=== PATIENT | male | born 1975 | race African-American/Black ===

== ENCOUNTER 2019-09-01 15:56 | Emergency (ER) | payer MEDICAID ==
[~2019-09-01] VITALS: Ht 180.3 cm; Wt 100.0 kg
[2019-09-01 15:59] VITALS: BP 122/85
== END 2019-09-01 18:17 | disposition home or self-care (01) ==
LOC: EDBD 15:56 → ER 15:56
DX: F10.129 Alcohol abuse with intoxication, unspecified (principal); Y90.9 Presence of alcohol in blood, level not specified
CPT/HCPCS: 99283

== ENCOUNTER 2019-09-06 00:13 | Emergency (ER) | payer MEDICAID ==
[~2019-09-06] VITALS: Ht 188 cm; Wt 104.0 kg
[2019-09-06 00:26] VITALS: BP 130/72
== END 2019-09-06 09:02 | disposition left against medical advice (07) ==
LOC: ER 00:22
DX: Z53.21 Procedure and treatment not carried out due to patient leaving prior to being seen by health care provider (principal)

== ENCOUNTER 2020-05-12 23:46 | Inpatient (IN) | payer MEDICAID ==
[~2020-05-12] VITALS: Ht 177.8 cm; Wt 113.9 kg
[2020-05-13] MEDS ORDERED: IBUPROFEN 600MG TABLET PO ONE (00:45)
[2020-05-13 02:19] LABS: BASOPHILS % 0.9 % (0.0-2.0); EOSINOPHILS % 2.4 % (0.0-5.0); HEMATOCRIT. 26.4 % (42.0-52.0); HEMOGLOBIN. 8.7 g/dL (14.0-18.0); LYMPHOCYTES % 38.9 % (20.0-50.0); MEAN CORPUSCULAR HEMOGLOBIN 28.1 pg (28.0-32.0); MEAN CORPUSCULAR VOLUME 85.1 fL (80.0-94.0); MEAN PLATELET VOLUME 8.4 fl (7.4-10.4); MONOCYTES % 13.7 % (2.0-8.0); NEUTROPHILS % 44.1 % (40.0-76.0); PLATELET 194 x1000/uL (130-400); RED CELL DISTRIBUTION WIDTH 17.5 % (11.6-14.6)
[2020-05-13 02:23] LABS: CHLORIDE 106 mEq/L (98-107)
[2020-05-13 02:27] LABS: ETHANOL BLOOD 196 mg/dL
[2020-05-13] MEDS ORDERED: PANTOPRAZOLE SODIUM 40 MG/VIAL IV ONE (02:45)
[2020-05-13] MEDS ORDERED: SODIUM CHLORIDE 0.9% 1,000 ML IV ONE (02:45)
[2020-05-13 03:52] LABS: HEMATOCRIT 26.5 % (42.0-52.0); HEMOGLOBIN 8.6 g/dL (14.0-18.0)
[2020-05-13 06:32] VITALS: BP 141/76
[2020-05-13 08:00] VITALS: BP 122/67
[2020-05-13] MEDS ORDERED: FOLIC ACID 1 MG, THIAMINE HCL 100 MG, MVI, ADULT NO.1 10 ML in DEXTROSE 5% WATER 1,000 ML IV SCH ×4 (10:00)
[2020-05-13] MEDS ORDERED: FOLIC ACID 1 MG, THIAMINE HCL 100 MG, MVI, ADULT NO.1 10 ML in DEXTROSE 5% WATER 1,000 ML IV ONE ×4 (10:00)
[2020-05-13] MEDS: PANTOPRAZOLE 80 MG in SODIUM CHLORIDE 0.9% 100 ML IV SCH ×2 (10:21→21:19)
[2020-05-13] MEDS: FUROSEMIDE 40MG/4ML VIAL IVP SCH ×2 (10:21→18:19)
[2020-05-13 11:06] VITALS: BP 122/67
[2020-05-13 12:00] VITALS: BP 116/68
[2020-05-13 12:39] LABS: CLARITY URINE CLEAR (CLEAR); COLOR URINE YELLOW (YELLOW); KETONES URINE NEGATIVE (NEGATIVE); LEUKOCYTE ESTERASE URINE NEGATIVE (NEGATIVE); NITRITE URINE NEGATIVE (NEGATIVE); OCCULT BLOOD URINE NEGATIVE (NEGATIVE); PROTEIN URINE NEGATIVE (NEGATIVE)
[2020-05-13 12:57] LABS: *AMPHETAMINES SCREEN URINE NEGATIVE (NEGATIVE); *BARBITURATES SCREEN URINE NEGATIVE (NEGATIVE); *BENZODIAZEPINES SCREEN URINE NEGATIVE (NEGATIVE); CANNABINOID URINE SCREEN NEGATIVE (NEGATIVE); METHADONE URINE SCREEN NEGATIVE (NEGATIVE)
[2020-05-13 12:59] LABS: *COCAINE SCREEN URINE NEGATIVE (NEGATIVE); OPIATES URINE SCREEN NEGATIVE (NEGATIVE)
[2020-05-13 13:03] LABS: PHENCYCLIDINE URINE SCREEN NEGATIVE (NEGATIVE)
[2020-05-13] MEDS: LORAZEPAM 2MG/ML CPJ IV PRN (14:07)
[2020-05-13] MEDS: CHLORDIAZEPOXIDE 25MG CAPSULE PO SCH ×2 (14:07→22:11)
[2020-05-13 16:00] VITALS: BP 147/77
[2020-05-13 16:39] LABS: TOTAL IRON BINDING CAPACITY 459 ug/dL (250-450)
[2020-05-13 20:47] VITALS: BP 160/79
[2020-05-14] VITALS: BP 156/84
[2020-05-14] MEDS: HYDROCODONE/ACETAMINOPHEN 5/325MG TABLET PO PRN (00:18)
[2020-05-14 04:00] VITALS: BP 149/80
[2020-05-14] MEDS: CHLORDIAZEPOXIDE 25MG CAPSULE PO SCH ×3 (05:31→22:12)
[2020-05-14] MEDS: PANTOPRAZOLE 80 MG in SODIUM CHLORIDE 0.9% 100 ML IV SCH ×2 (05:31→16:44)
[2020-05-14] MEDS: FUROSEMIDE 40MG/4ML VIAL IVP SCH ×2 (06:22→16:43)
[2020-05-14 06:32] LABS: HEMATOCRIT. 26.3 % (42.0-52.0); HEMOGLOBIN. 8.8 g/dL (14.0-18.0); MEAN CORPUSCULAR VOLUME 83.7 fL (80.0-94.0); MEAN PLATELET VOLUME 8.6 fl (7.4-10.4); PLATELET 150 x1000/uL (130-400); RED BLOOD CELL COUNT 3.15 mill/uL (4.7-6.1)
[2020-05-14 06:56] LABS: CHLORIDE 94 mEq/L (98-107)
[2020-05-14 08:00] VITALS: BP 119/80
[2020-05-14 10:08] LABS: PLATELET ESTIMATE NORMAL
[2020-05-14] MEDS: ACETAMINOPHEN 325MG TABLET PO PRN ×2 (10:20→20:32)
[2020-05-14] MEDS: LEVOFLOXACIN 500MG TABLET PO SCH (10:20)
[2020-05-14 11:30] VITALS: BP 98/56
[2020-05-14] MEDS ORDERED: POTASSIUM CHLORIDE 20MEQ TABLET SR PO SCH (13:30)
[2020-05-14 16:00] VITALS: BP 143/81
[2020-05-14] MEDS: BENZONATATE 100MG CAPSULE PO PRN (16:43)
[2020-05-14 20:00] VITALS: BP 112/52
[2020-05-15] VITALS: BP 144/79
[2020-05-15] MEDS: PANTOPRAZOLE 80 MG in SODIUM CHLORIDE 0.9% 100 ML IV SCH ×2 (03:50→12:37)
[2020-05-15 04:00] VITALS: BP 105/53
[2020-05-15] MEDS: CHLORDIAZEPOXIDE 25MG CAPSULE PO SCH ×3 (05:18→21:07)
[2020-05-15] MEDS: ACETAMINOPHEN 325MG TABLET PO PRN ×2 (05:19→11:38)
[2020-05-15 06:21] LABS: CHLORIDE 94 mEq/L (98-107)
[2020-05-15 06:28] LABS: HEMATOCRIT. 26.4 % (42.0-52.0); MEAN CORPUSCULAR VOLUME 85.4 fL (80.0-94.0); MEAN PLATELET VOLUME 8.8 fl (7.4-10.4); PLATELET 108 x1000/uL (130-400); RED BLOOD CELL COUNT 3.09 mill/uL (4.7-6.1); RED CELL DISTRIBUTION WIDTH 17.1 % (11.6-14.6)
[2020-05-15] MEDS: FUROSEMIDE 40MG/4ML VIAL IVP SCH ×2 (06:34→16:39)
[2020-05-15 08:00] VITALS: BP 111/57
[2020-05-15 10:43] LABS: PLATELET ESTIMATE DECREASED
[2020-05-15] MEDS: BENZONATATE 100MG CAPSULE PO PRN (11:26)
[2020-05-15] MEDS: LEVOFLOXACIN 500MG TABLET PO SCH (11:26)
[2020-05-15] MEDS: HYDROCODONE/ACETAMINOPHEN 5/325MG TABLET PO PRN (11:38)
[2020-05-15 12:00] VITALS: BP 120/65
[2020-05-15] MEDS ORDERED: POTASSIUM CHLORIDE 20MEQ/PACKET PO NR (13:00)
[2020-05-15] MEDS: VANCOMYCIN 1250MG in DEXTROSE 5% WATER 250ML IV SCH ×3 (14:00→21:05)
[2020-05-15] MEDS: THIAMINE HCL 100MG TABLET PO SCH (15:30)
[2020-05-15 16:00] VITALS: BP 107/63
[2020-05-15 20:00] VITALS: BP 110/64
[2020-05-16] VITALS: BP 105/69
[2020-05-16 04:00] VITALS: BP 108/60
[2020-05-16] MEDS: VANCOMYCIN 1250MG in DEXTROSE 5% WATER 250ML IV SCH ×3 (05:39→21:38)
[2020-05-16] MEDS: CHLORDIAZEPOXIDE 25MG CAPSULE PO SCH ×3 (05:55→21:38)
[2020-05-16] MEDS: HYDROCODONE/ACETAMINOPHEN 5/325MG TABLET PO PRN ×3 (05:56→21:39)
[2020-05-16] MEDS: OMEPRAZOLE 20MG CAPSULE EXTENDED RELEASE PO SCH (06:09)
[2020-05-16] MEDS: ACETAMINOPHEN 325MG TABLET PO PRN (06:15)
[2020-05-16] MEDS: FUROSEMIDE 40MG/4ML VIAL IVP SCH (06:17)
[2020-05-16 07:15] LABS: BASOPHILS % 0.8 % (0.0-2.0); EOSINOPHILS % 0.6 % (0.0-5.0); HEMATOCRIT. 27.6 % (42.0-52.0); HEMOGLOBIN. 9.2 g/dL (14.0-18.0); LYMPHOCYTES % 4.7 % (20.0-50.0); MEAN CORPUSCULAR HEMOGLOBIN 28.8 pg (28.0-32.0); MEAN PLATELET VOLUME 8.8 fl (7.4-10.4); MONOCYTES % 10.7 % (2.0-8.0); NEUTROPHILS % 83.2 % (40.0-76.0); PLATELET 106 x1000/uL (130-400); RED BLOOD CELL COUNT 3.21 mill/uL (4.7-6.1); RED CELL DISTRIBUTION WIDTH 17.6 % (11.6-14.6)
[2020-05-16 07:17] LABS: CHLORIDE 88 mEq/L (98-107)
[2020-05-16 08:00] VITALS: BP 124/68
[2020-05-16] MEDS: THIAMINE HCL 100MG TABLET PO SCH (09:35)
[2020-05-16] MEDS ORDERED: IOHEXOL-300 100 ML BOTTLE ONE (10:59)
[2020-05-16 12:00] VITALS: BP 112/64
[2020-05-16] MEDS ORDERED: POTASSIUM CHLORIDE 20MEQ/PACKET PO SCH (12:00)
[2020-05-16] MEDS: SODIUM CHLORIDE 0.9% 1,000 ML IV SCH (12:53)
[2020-05-16 16:00] VITALS: BP 102/71
[2020-05-16 20:00] VITALS: BP 136/97
[2020-05-16] MEDS: IPRATROPIUM/ALBUTEROL 0.5-3(2.5)MG/3ML NEB HHN SCH (20:46)
[2020-05-17] VITALS (52 sets, daily range): BP systolic 98–190; BP diastolic 57–126
[2020-05-17] MEDS: IPRATROPIUM/ALBUTEROL 0.5-3(2.5)MG/3ML NEB HHN SCH ×4 (02:05→20:05)
[2020-05-17] MEDS: LORAZEPAM 2MG/ML CPJ IV PRN (02:36)
[2020-05-17] MEDS: VANCOMYCIN 1250MG in DEXTROSE 5% WATER 250ML IV SCH (05:03)
[2020-05-17] MEDS: CHLORDIAZEPOXIDE 25MG CAPSULE PO SCH ×3 (05:13→21:43)
[2020-05-17] MEDS: OMEPRAZOLE 20MG CAPSULE EXTENDED RELEASE PO SCH (06:21)
[2020-05-17] MEDS ORDERED: ETOMIDATE 2MG/ML 10ML VIAL IV ONE (09:00)
[2020-05-17] MEDS ORDERED: VECURONIUM BROMIDE 10 MG/VIAL IV ONE (09:00)
[2020-05-17 09:47] LABS: HEMATOCRIT 27.9 % (42.0-52.0); HEMOGLOBIN 9.5 g/dL (14.0-18.0); MEAN CORPUSCULAR HEMOGLOBIN 28.3 pg (28.0-32.0); MEAN CORPUSCULAR VOLUME 83.4 fL (80.0-94.0); PLATELET 116 x1000/uL (130-400); RED BLOOD CELL COUNT 3.34 mill/uL (4.7-6.1); RED CELL DISTRIBUTION WIDTH 17.4 % (11.6-14.6)
[2020-05-17 09:55] LABS: CHLORIDE 91 mEq/L (98-107)
[2020-05-17 10:03] LABS: BG BASE EXCESS 3.1 mmol/L (-2.0-2.0); BG CARBOXYHEMOGLOBIN 0.3 % (0.5-1.5); BG DEOXYHEMOGLOBIN 0.1 % (0.0-5.0); BG FRACTION INSPIRED OXYGEN 99.8; BG HCO3 ACT 26.7 mmol/L (22.0-26.0); BG OXYGEN SATURATION 99.9 % (92.0-98.5); BG OXYHEMOGLOBIN 99.6 % (94.0-97.0); BG PCO2 36.9 mmHg (35.0-45.0); BG PH 7.477 (7.350-7.450); BG PO2 367.7 mmHg (75.0-100.0); BG SAMPLE SITE RIGHT RADIAL; BG TOTAL HEMOGLOBIN 10.2 g/dL (12.0-18.0); BG VENT MODE MASK - NRB
[2020-05-17 10:04] LABS: INR 1.4; PROTHROMBIN TIME 14.1 sec (9.6-11.0)
[2020-05-17 10:14] LABS: VANCOMYCIN TROUGH 16.4 ug/mL (5.0-10.0)
[2020-05-17] MEDS ORDERED: LEVETIRACETAM 500 MG in SODIUM CHLORIDE 0.9% 100 ML IV SCH (10:30)
[2020-05-17] MEDS ORDERED: PHENYLEPHRINE 100 MG in DEXT 5% WATER 240 ML IV PRN (10:30)
[2020-05-17] MEDS ORDERED: POTASSIUM CHLORIDE 20MEQ TABLET SR PO NR (10:30)
[2020-05-17] MEDS: ACETAMINOPHEN 325MG TABLET PO PRN (10:39)
[2020-05-17] MEDS: SODIUM CHLORIDE 0.9% 1,000 ML IV SCH (10:54)
[2020-05-17] MEDS: PROPOFOL 10MG/ML 100ML 100 ML IV PRN ×3 (11:35→22:42)
[2020-05-17] MEDS: THIAMINE HCL 100MG TABLET PO SCH (12:59)
[2020-05-17] MEDS: LEVETIRACETAM 500MG PREMIX 100 ML IV SCH ×2 (12:59→21:43)
[2020-05-17] MEDS ORDERED: CEFEPIME 1,000 MG in DEXTROSE 5% WATER 50 ML IV SCH (13:00)
[2020-05-17 13:05] LABS: BG BASE EXCESS 2.1 mmol/L (-2.0-2.0); BG CARBOXYHEMOGLOBIN 0.3 % (0.5-1.5); BG DEOXYHEMOGLOBIN 0.5 % (0.0-5.0); BG FRACTION INSPIRED OXYGEN 60; BG HCO3 ACT 26.6 mmol/L (22.0-26.0); BG METHEMOGLOBIN 0.1 % (0.0-1.5); BG OXYGEN SATURATION 99.5 % (92.0-98.5); BG OXYHEMOGLOBIN 99.1 % (94.0-97.0); BG PO2 209.7 mmHg (75.0-100.0); BG SAMPLE SITE RIGHT RADIAL; BG TOTAL HEMOGLOBIN 10.6 g/dL (12.0-18.0); BG VENT MODE VENT - AC
[2020-05-17] MEDS ORDERED: AMPICILLIN 1,000 MG in SODIUM CHLORIDE 0.9% 50 ML IV SCH (13:15)
[2020-05-17] MEDS ORDERED: METRONIDAZOLE 500 MG PREMIX 100 ML IV SCH (14:00)
[2020-05-17] MEDS: VANCOMYCIN 1,750 MG in DEXT 5% WATER 250 ML IV SCH ×2 (14:08→21:43)
[2020-05-17] MEDS: CEFTRIAXONE 2 G in DEXTROSE 5% WATER 50 ML IV SCH ×2 (16:15→23:54)
[2020-05-17 16:44] LABS: INR 1.4; PROTHROMBIN TIME 14.3 sec (9.6-11.0)
[2020-05-17] MEDS ORDERED: LIDOCAINE HCL 1% 20ML VIAL (Pyxis) INJ INFIL NR (17:45)
[2020-05-17 18:41] LABS: GLUCOSE CSF 48 mg/dL (41-75)
[2020-05-17 22:19] LABS: T4 FREE 1.25 ng/dL (0.76-1.46)
[2020-05-17 22:44] LABS: FOLIC ACID (FOLATE) SERUM 14.7 ng/mL (>5.38)
[2020-05-18] VITALS (92 sets, daily range): BP systolic 98–137; BP diastolic 55–92
[2020-05-18 00:35] LABS: HEPATITIS A AB IGM NEGATIVE (NEGATIVE)
[2020-05-18] MEDS: IPRATROPIUM/ALBUTEROL 0.5-3(2.5)MG/3ML NEB HHN SCH ×4 (01:59→20:24)
[2020-05-18] MEDS: SODIUM CHLORIDE 0.9% 1,000 ML IV SCH ×2 (03:14→23:33)
[2020-05-18] MEDS: PROPOFOL 10MG/ML 100ML 100 ML IV PRN ×5 (04:28→23:40)
[2020-05-18 05:41] LABS: CHLORIDE 92 mEq/L (98-107)
[2020-05-18] MEDS: OMEPRAZOLE 20MG CAPSULE EXTENDED RELEASE PO SCH (06:06)
[2020-05-18] MEDS: CHLORDIAZEPOXIDE 25MG CAPSULE PO SCH ×2 (06:06→14:49)
[2020-05-18] MEDS: VANCOMYCIN 1,750 MG in DEXT 5% WATER 250 ML IV SCH ×3 (06:06→23:30)
[2020-05-18 06:33] LABS: HEMATOCRIT. 26.1 % (42.0-52.0); HEMOGLOBIN. 8.7 g/dL (14.0-18.0); MEAN CORPUSCULAR HEMOGLOBIN 28.4 pg (28.0-32.0); MEAN CORPUSCULAR VOLUME 85.4 fL (80.0-94.0); MEAN PLATELET VOLUME 9.7 fl (7.4-10.4); PLATELET 104 x1000/uL (130-400); RED BLOOD CELL COUNT 3.06 mill/uL (4.7-6.1); RED CELL DISTRIBUTION WIDTH 17.7 % (11.6-14.6)
[2020-05-18 08:11] LABS: PLATELET ESTIMATE SLIGHTLY DECREASED
[2020-05-18] MEDS: THIAMINE HCL 100MG TABLET PO SCH (08:23)
[2020-05-18] MEDS: LEVETIRACETAM 500MG PREMIX 100 ML IV SCH ×2 (08:23→23:31)
[2020-05-18] MEDS: CEFTRIAXONE 2 G in DEXTROSE 5% WATER 50 ML IV SCH ×2 (08:23→23:31)
[2020-05-18] MEDS: MULTIVITAMINS,THER W-MINERALS TABLET PO SCH (08:23)
[2020-05-18] MEDS: FOLIC ACID 1MG TABLET PO SCH (08:23)
[2020-05-18] MEDS: ACETAMINOPHEN 325MG TABLET PO PRN ×2 (08:24→15:38)
[2020-05-18 10:10] LABS: BG BASE EXCESS 3.3 mmol/L (-2.0-2.0); BG CARBOXYHEMOGLOBIN 0.3 % (0.5-1.5); BG DEOXYHEMOGLOBIN 1.4 % (0.0-5.0); BG FRACTION INSPIRED OXYGEN 40; BG HCO3 ACT 28.3 mmol/L (22.0-26.0); BG METHEMOGLOBIN 0.3 % (0.0-1.5); BG OXYGEN SATURATION 98.6 % (92.0-98.5); BG PCO2 44.9 mmHg (35.0-45.0); BG PH 7.417 (7.350-7.450); BG PO2 132.8 mmHg (75.0-100.0); BG SAMPLE SITE RIGHT RADIAL; BG TOTAL RESPIRATORY RATE 25 b/min; BG VENT MODE VENT - AC
[2020-05-19] VITALS (59 sets, daily range): BP systolic 104–137; BP diastolic 58–81
[2020-05-19] MEDS: IPRATROPIUM/ALBUTEROL 0.5-3(2.5)MG/3ML NEB HHN SCH ×4 (01:34→20:46)
[2020-05-19 05:27] LABS: HEMATOCRIT. 25.5 % (42.0-52.0); HEMOGLOBIN. 8.4 g/dL (14.0-18.0); MEAN CORPUSCULAR HEMOGLOBIN 28.2 pg (28.0-32.0); MEAN CORPUSCULAR VOLUME 85.1 fL (80.0-94.0); MEAN PLATELET VOLUME 9.9 fl (7.4-10.4); PLATELET 115 x1000/uL (130-400); RED BLOOD CELL COUNT 2.99 mill/uL (4.7-6.1); RED CELL DISTRIBUTION WIDTH 17.7 % (11.6-14.6)
[2020-05-19 05:32] LABS: CHLORIDE 93 mEq/L (98-107)
[2020-05-19 05:41] LABS: VANCOMYCIN TROUGH 28.4 ug/mL (5.0-10.0)
[2020-05-19] MEDS: OMEPRAZOLE 20MG CAPSULE EXTENDED RELEASE PO SCH (05:48)
[2020-05-19] MEDS: PROPOFOL 10MG/ML 100ML 100 ML IV PRN ×3 (05:53→20:50)
[2020-05-19] MEDS: VANCOMYCIN 1,750 MG in DEXT 5% WATER 250 ML IV SCH (05:56)
[2020-05-19 07:04] LABS: PLATELET ESTIMATE DECREASED
[2020-05-19 07:08] LABS: HIV SCREEN 4G Non Reactive (Non Reactive)
[2020-05-19] MEDS: CEFTRIAXONE 2 G in DEXTROSE 5% WATER 50 ML IV SCH ×2 (08:46→22:16)
[2020-05-19] MEDS: FOLIC ACID 1MG TABLET PO SCH (08:46)
[2020-05-19] MEDS: MULTIVITAMINS,THER W-MINERALS TABLET PO SCH (08:46)
[2020-05-19] MEDS: THIAMINE HCL 100MG TABLET PO SCH (08:46)
[2020-05-19] MEDS: LEVETIRACETAM 500MG PREMIX 100 ML IV SCH ×2 (08:47→21:00)
[2020-05-19 09:55] LABS: BG BASE EXCESS 3.6 mmol/L (-2.0-2.0); BG CARBOXYHEMOGLOBIN 0.3 % (0.5-1.5); BG DEOXYHEMOGLOBIN 0.7 % (0.0-5.0); BG FRACTION INSPIRED OXYGEN 40; BG HCO3 ACT 28.2 mmol/L (22.0-26.0); BG METHEMOGLOBIN 0.1 % (0.0-1.5); BG OXYGEN SATURATION 99.3 % (92.0-98.5); BG OXYHEMOGLOBIN 98.9 % (94.0-97.0); BG PCO2 42.9 mmHg (35.0-45.0); BG PH 7.435 (7.350-7.450); BG PO2 160.4 mmHg (75.0-100.0); BG SAMPLE SITE RIGHT RADIAL; BG TOTAL HEMOGLOBIN 9.5 g/dL (12.0-18.0); BG TOTAL RESPIRATORY RATE 22 b/min; BG VENT MODE VENT - AC
[2020-05-19] MEDS ORDERED: LACTULOSE 20G/30ML UDC PO NR (10:15)
[2020-05-19] MEDS: VANCOMYCIN 1,500 MG in DEXT 5% WATER 250 ML IV SCH ×2 (13:04→22:40)
[2020-05-19] MEDS ORDERED: MORPHINE SULFATE 2 MG/ML CPJ (NOT FOR IM USE) IV PRN (15:00)
[2020-05-19] MEDS ORDERED: LORAZEPAM 2MG/ML CPJ IV PRN (15:00)
[2020-05-19 16:49] LABS: HEPATITIS B SURFACE ANTIGEN NEGATIVE
[2020-05-19] MEDS: SODIUM CHLORIDE 0.9% 1,000 ML IV SCH (17:20)
[2020-05-20] VITALS (64 sets, daily range): BP systolic 114–146; BP diastolic 56–80
[2020-05-20] MEDS: PROPOFOL 10MG/ML 100ML 100 ML IV PRN ×5 (00:03→21:12)
[2020-05-20] MEDS: IPRATROPIUM/ALBUTEROL 0.5-3(2.5)MG/3ML NEB HHN SCH ×4 (02:30→21:13)
[2020-05-20] MEDS: VANCOMYCIN 1,500 MG in DEXT 5% WATER 250 ML IV SCH ×3 (06:27→22:20)
[2020-05-20] MEDS: OMEPRAZOLE 20MG CAPSULE EXTENDED RELEASE PO SCH (06:28)
[2020-05-20] MEDS: CEFTRIAXONE 2 G in DEXTROSE 5% WATER 50 ML IV SCH ×2 (08:55→21:42)
[2020-05-20] MEDS: LEVETIRACETAM 500MG PREMIX 100 ML IV SCH ×2 (08:55→20:47)
[2020-05-20] MEDS: MULTIVITAMINS,THER W-MINERALS TABLET PO SCH (08:55)
[2020-05-20] MEDS: THIAMINE HCL 100MG TABLET PO SCH (08:56)
[2020-05-20 08:59] LABS: BG BASE EXCESS 5.4 mmol/L (-2.0-2.0); BG CARBOXYHEMOGLOBIN 0.3 % (0.5-1.5); BG DEOXYHEMOGLOBIN 1.5 % (0.0-5.0); BG FRACTION INSPIRED OXYGEN 40; BG METHEMOGLOBIN 0.3 % (0.0-1.5); BG OXYGEN SATURATION 98.5 % (92.0-98.5); BG OXYHEMOGLOBIN 97.9 % (94.0-97.0); BG PCO2 44.3 mmHg (35.0-45.0); BG PH 7.449 (7.350-7.450); BG SAMPLE SITE RIGHT RADIAL; BG TOTAL HEMOGLOBIN 10.7 g/dL (12.0-18.0); BG TOTAL RESPIRATORY RATE 24 b/min; BG VENT MODE VENT - AC
[2020-05-20] MEDS ORDERED: FUROSEMIDE 40MG/4ML VIAL IVP NR (09:45)
[2020-05-20] MEDS: DOCUSATE SODIUM 250MG CAPSULE PO SCH (11:30)
[2020-05-20] MEDS: FOLIC ACID 1MG TABLET PO SCH (11:30)
[2020-05-20] MEDS: SODIUM CHLORIDE 0.9% 1,000 ML IV SCH (17:10)
[2020-05-21] VITALS (96 sets, daily range): BP systolic 104–132; BP diastolic 48–87
[2020-05-21] MEDS: PROPOFOL 10MG/ML 100ML 100 ML IV PRN ×4 (01:16→22:08)
[2020-05-21] MEDS: IPRATROPIUM/ALBUTEROL 0.5-3(2.5)MG/3ML NEB HHN SCH ×4 (02:24→20:10)
[2020-05-21] MEDS: VANCOMYCIN 1,500 MG in DEXT 5% WATER 250 ML IV SCH ×2 (05:37→14:19)
[2020-05-21 05:45] LABS: HEMATOCRIT. 26.8 % (42.0-52.0); MEAN CORPUSCULAR HEMOGLOBIN 28.1 pg (28.0-32.0); MEAN CORPUSCULAR VOLUME 83.9 fL (80.0-94.0); MEAN PLATELET VOLUME 9.1 fl (7.4-10.4); PLATELET 262 x1000/uL (130-400); RED BLOOD CELL COUNT 3.19 mill/uL (4.7-6.1); RED CELL DISTRIBUTION WIDTH 17.9 % (11.6-14.6)
[2020-05-21 05:50] LABS: CHLORIDE 98 mEq/L (98-107)
[2020-05-21] MEDS: OMEPRAZOLE 20MG CAPSULE EXTENDED RELEASE PO SCH (06:34)
[2020-05-21] MEDS: CEFTRIAXONE 2 G in DEXTROSE 5% WATER 50 ML IV SCH ×2 (09:01→20:48)
[2020-05-21] MEDS: DOCUSATE SODIUM 250MG CAPSULE PO SCH (09:01)
[2020-05-21] MEDS: MULTIVITAMINS,THER W-MINERALS TABLET PO SCH (09:01)
[2020-05-21] MEDS: FOLIC ACID 1MG TABLET PO SCH (09:01)
[2020-05-21] MEDS: LEVETIRACETAM 500MG PREMIX 100 ML IV SCH ×2 (09:01→20:06)
[2020-05-21] MEDS: THIAMINE HCL 100MG TABLET PO SCH (09:01)
[2020-05-21 09:45] LABS: BG BASE EXCESS 3.9 mmol/L (-2.0-2.0); BG CARBOXYHEMOGLOBIN 0.6 % (0.5-1.5); BG DEOXYHEMOGLOBIN 1.6 % (0.0-5.0); BG FRACTION INSPIRED OXYGEN 35; BG METHEMOGLOBIN 0.1 % (0.0-1.5); BG OXYGEN SATURATION 98.4 % (92.0-98.5); BG OXYHEMOGLOBIN 97.7 % (94.0-97.0); BG PCO2 40.6 mmHg (35.0-45.0); BG PH 7.457 (7.350-7.450); BG PO2 115.6 mmHg (75.0-100.0); BG SAMPLE SITE RIGHT RADIAL; BG TOTAL HEMOGLOBIN 9.7 g/dL (12.0-18.0); BG VENT MODE VENT - AC
[2020-05-21 10:46] LABS: PLATELET ESTIMATE NORMAL
[2020-05-21] MEDS ORDERED: PROPOFOL 10MG/ML 100ML 100 ML IV PRN (14:45)
[2020-05-21] MEDS: CEFAZOLIN 1000MG PREMIX 50 ML IV SCH (22:33)
[2020-05-22] VITALS (93 sets, daily range): BP systolic 104–156; BP diastolic 46–89
[2020-05-22] MEDS: IPRATROPIUM/ALBUTEROL 0.5-3(2.5)MG/3ML NEB HHN SCH ×4 (02:22→20:23)
[2020-05-22] MEDS: CEFAZOLIN 1000MG PREMIX 50 ML IV SCH ×3 (05:14→21:44)
[2020-05-22] MEDS: OMEPRAZOLE 20MG CAPSULE EXTENDED RELEASE PO SCH (05:31)
[2020-05-22 05:47] LABS: BASOPHILS % 0.5 % (0.0-2.0); HEMATOCRIT. 27.2 % (42.0-52.0); HEMOGLOBIN. 9.2 g/dL (14.0-18.0); LYMPHOCYTES % 10.7 % (20.0-50.0); MEAN CORPUSCULAR VOLUME 82.8 fL (80.0-94.0); MEAN PLATELET VOLUME 8.9 fl (7.4-10.4); MONOCYTES % 5.7 % (2.0-8.0); NEUTROPHILS % 82.1 % (40.0-76.0); PLATELET 326 x1000/uL (130-400); RED BLOOD CELL COUNT 3.29 mill/uL (4.7-6.1)
[2020-05-22 06:02] LABS: CHLORIDE 97 mEq/L (98-107)
[2020-05-22] MEDS: PROPOFOL 10MG/ML 100ML 100 ML IV PRN ×4 (06:11→23:40)
[2020-05-22] MEDS: DOCUSATE SODIUM 250MG CAPSULE PO SCH (10:09)
[2020-05-22] MEDS: LEVETIRACETAM 500MG PREMIX 100 ML IV SCH ×2 (10:09→20:33)
[2020-05-22] MEDS: MULTIVITAMINS,THER W-MINERALS TABLET PO SCH (10:09)
[2020-05-22] MEDS: THIAMINE HCL 100MG TABLET PO SCH (10:10)
[2020-05-23] VITALS (89 sets, daily range): BP systolic 105–184; BP diastolic 52–109
[2020-05-23] MEDS: IPRATROPIUM/ALBUTEROL 0.5-3(2.5)MG/3ML NEB HHN SCH ×3 (01:43→20:44)
[2020-05-23] MEDS: PROPOFOL 10MG/ML 100ML 100 ML IV PRN ×2 (05:38→14:36)
[2020-05-23 06:38] LABS: CHLORIDE 101 mEq/L (98-107)
[2020-05-23 06:39] LABS: HEMATOCRIT. 28.4 % (42.0-52.0); HEMOGLOBIN. 9.4 g/dL (14.0-18.0); MEAN CORPUSCULAR HEMOGLOBIN 27.8 pg (28.0-32.0); MEAN CORPUSCULAR VOLUME 84.2 fL (80.0-94.0); PLATELET 345 x1000/uL (130-400); RED BLOOD CELL COUNT 3.37 mill/uL (4.7-6.1); RED CELL DISTRIBUTION WIDTH 18.2 % (11.6-14.6)
[2020-05-23] MEDS: CEFAZOLIN 1000MG PREMIX 50 ML IV SCH ×3 (06:43→21:49)
[2020-05-23] MEDS: OMEPRAZOLE 20MG CAPSULE EXTENDED RELEASE PO SCH ×2 (06:46→11:41)
[2020-05-23] MEDS: DOCUSATE SODIUM 250MG CAPSULE PO SCH (11:34)
[2020-05-23] MEDS: MULTIVITAMINS,THER W-MINERALS TABLET PO SCH (11:34)
[2020-05-23] MEDS: FOLIC ACID 1MG TABLET PO SCH ×2 (11:34→11:51)
[2020-05-23] MEDS: LEVETIRACETAM 500MG PREMIX 100 ML IV SCH ×2 (11:34→20:43)
[2020-05-23] MEDS: THIAMINE HCL 100MG TABLET PO SCH (11:34)
[2020-05-23] MEDS: ASPIRIN 81MG TABLET PO SCH (11:37)
[2020-05-23] MEDS ORDERED: FUROSEMIDE 40MG/4ML VIAL IVP NR (12:30)
[2020-05-23 12:36] LABS: PLATELET ESTIMATE NORMAL
[2020-05-23] MEDS: ENOXAPARIN 30MG/0.3ML SYR SUBCUT SCH ×2 (15:08→20:44)
[2020-05-24] VITALS (76 sets, daily range): BP systolic 96–146; BP diastolic 48–90
[2020-05-24] MEDS: PROPOFOL 10MG/ML 100ML 100 ML IV PRN ×3 (00:38→22:29)
[2020-05-24] MEDS: IPRATROPIUM/ALBUTEROL 0.5-3(2.5)MG/3ML NEB HHN SCH ×4 (01:33→20:14)
[2020-05-24] MEDS: CEFAZOLIN 1000MG PREMIX 50 ML IV SCH ×3 (05:32→22:32)
[2020-05-24 05:57] LABS: BASOPHILS % 1.1 % (0.0-2.0); EOSINOPHILS % 0.5 % (0.0-5.0); HEMATOCRIT. 27.8 % (42.0-52.0); HEMOGLOBIN. 9.3 g/dL (14.0-18.0); LYMPHOCYTES % 12.6 % (20.0-50.0); MEAN CORPUSCULAR HEMOGLOBIN 27.9 pg (28.0-32.0); MEAN CORPUSCULAR VOLUME 82.9 fL (80.0-94.0); MONOCYTES % 5.1 % (2.0-8.0); NEUTROPHILS % 80.7 % (40.0-76.0); PLATELET 409 x1000/uL (130-400); RED BLOOD CELL COUNT 3.35 mill/uL (4.7-6.1); RED CELL DISTRIBUTION WIDTH 18.2 % (11.6-14.6)
[2020-05-24 06:00] LABS: CHLORIDE 99 mEq/L (98-107)
[2020-05-24] MEDS: LEVETIRACETAM 500MG PREMIX 100 ML IV SCH ×2 (08:51→21:04)
[2020-05-24] MEDS: ENOXAPARIN 30MG/0.3ML SYR SUBCUT SCH ×2 (08:51→21:05)
[2020-05-24] MEDS: FOLIC ACID 1MG TABLET PO SCH (08:51)
[2020-05-24] MEDS: ASPIRIN 81MG TABLET PO SCH (08:52)
[2020-05-24] MEDS: THIAMINE HCL 100MG TABLET PO SCH (08:52)
[2020-05-24] MEDS: MULTIVITAMINS,THER W-MINERALS TABLET PO SCH (08:52)
[2020-05-24 09:52] LABS: BG BASE EXCESS 5.8 mmol/L (-2.0-2.0); BG CARBOXYHEMOGLOBIN 0.2 % (0.5-1.5); BG DEOXYHEMOGLOBIN 1.2 % (0.0-5.0); BG FRACTION INSPIRED OXYGEN 35; BG HCO3 ACT 30.1 mmol/L (22.0-26.0); BG METHEMOGLOBIN 0.3 % (0.0-1.5); BG OXYGEN SATURATION 98.8 % (92.0-98.5); BG OXYHEMOGLOBIN 98.3 % (94.0-97.0); BG PCO2 42.9 mmHg (35.0-45.0); BG PH 7.464 (7.350-7.450); BG PO2 124.7 mmHg (75.0-100.0); BG SAMPLE SITE RIGHT RADIAL; BG TOTAL HEMOGLOBIN 9.7 g/dL (12.0-18.0); BG VENT MODE VENT - AC
[2020-05-24] MEDS: DOCUSATE SODIUM SUGAR FREE 100MG/10ML UDC NG SCH (10:23)
[2020-05-24] MEDS ORDERED: FUROSEMIDE 40MG/4ML VIAL IVP NR (11:00)
[2020-05-24] MEDS: MORPHINE SULFATE 2 MG/ML CPJ (NOT FOR IM USE) IV PRN (20:46)
[2020-05-24] MEDS: LORAZEPAM 2MG/ML CPJ IV PRN (20:46)
[2020-05-25] VITALS (70 sets, daily range): BP systolic 98–130; BP diastolic 44–73
[2020-05-25] MEDS: PROPOFOL 10MG/ML 100ML 100 ML IV PRN ×4 (02:07→22:04)
[2020-05-25] MEDS: IPRATROPIUM/ALBUTEROL 0.5-3(2.5)MG/3ML NEB HHN SCH ×4 (02:10→20:42)
[2020-05-25 05:47] LABS: BASOPHILS % 1.3 % (0.0-2.0); EOSINOPHILS % 0.8 % (0.0-5.0); HEMATOCRIT. 26.4 % (42.0-52.0); HEMOGLOBIN. 8.7 g/dL (14.0-18.0); LYMPHOCYTES % 12.7 % (20.0-50.0); MEAN CORPUSCULAR HEMOGLOBIN 27.7 pg (28.0-32.0); MEAN CORPUSCULAR VOLUME 84.2 fL (80.0-94.0); MEAN PLATELET VOLUME 8.9 fl (7.4-10.4); MONOCYTES % 6.3 % (2.0-8.0); NEUTROPHILS % 78.9 % (40.0-76.0); PLATELET 396 x1000/uL (130-400); RED BLOOD CELL COUNT 3.13 mill/uL (4.7-6.1); RED CELL DISTRIBUTION WIDTH 18.2 % (11.6-14.6)
[2020-05-25 05:49] LABS: CHLORIDE 100 mEq/L (98-107)
[2020-05-25] MEDS: CEFAZOLIN 1000MG PREMIX 50 ML IV SCH ×3 (05:52→22:12)
[2020-05-25] MEDS: OMEPRAZOLE 20MG CAPSULE EXTENDED RELEASE PO SCH (05:52)
[2020-05-25] MEDS: ASPIRIN 81MG TABLET PO SCH (08:23)
[2020-05-25] MEDS: LEVETIRACETAM 500MG PREMIX 100 ML IV SCH ×2 (08:23→20:13)
[2020-05-25] MEDS: ENOXAPARIN 30MG/0.3ML SYR SUBCUT SCH ×2 (08:24→20:20)
[2020-05-25] MEDS: FOLIC ACID 1MG TABLET PO SCH (08:24)
[2020-05-25] MEDS: MULTIVITAMINS,THER W-MINERALS TABLET PO SCH (08:24)
[2020-05-25] MEDS: THIAMINE HCL 100MG TABLET PO SCH (08:24)
[2020-05-25] MEDS: DOCUSATE SODIUM SUGAR FREE 100MG/10ML UDC NG SCH (08:30)
[2020-05-25] MEDS: ACETAMINOPHEN 325MG TABLET PO PRN (09:02)
[2020-05-25 09:20] LABS: BG BASE EXCESS 4.8 mmol/L (-2.0-2.0); BG CARBOXYHEMOGLOBIN 0.3 % (0.5-1.5); BG DEOXYHEMOGLOBIN 1.3 % (0.0-5.0); BG FRACTION INSPIRED OXYGEN 35; BG HCO3 ACT 28.9 mmol/L (22.0-26.0); BG METHEMOGLOBIN 0.3 % (0.0-1.5); BG OXYGEN SATURATION 98.7 % (92.0-98.5); BG OXYHEMOGLOBIN 98.1 % (94.0-97.0); BG PCO2 41.1 mmHg (35.0-45.0); BG PH 7.465 (7.350-7.450); BG PO2 144.5 mmHg (75.0-100.0); BG SAMPLE SITE RIGHT RADIAL; BG TOTAL HEMOGLOBIN 9.3 g/dL (12.0-18.0); BG TOTAL RESPIRATORY RATE 21 b/min; BG VENT MODE VENT - AC
[2020-05-26] VITALS (93 sets, daily range): BP systolic 106–141; BP diastolic 48–78
[2020-05-26] MEDS: PROPOFOL 10MG/ML 100ML 100 ML IV PRN ×7 (02:52→23:22)
[2020-05-26] MEDS: IPRATROPIUM/ALBUTEROL 0.5-3(2.5)MG/3ML NEB HHN SCH ×4 (02:57→20:16)
[2020-05-26 05:30] LABS: BASOPHILS % 1.4 % (0.0-2.0); EOSINOPHILS % 0.9 % (0.0-5.0); HEMATOCRIT. 25.9 % (42.0-52.0); HEMOGLOBIN. 8.7 g/dL (14.0-18.0); MEAN CORPUSCULAR HEMOGLOBIN 27.8 pg (28.0-32.0); MEAN CORPUSCULAR VOLUME 83.2 fL (80.0-94.0); MEAN PLATELET VOLUME 9.2 fl (7.4-10.4); MONOCYTES % 6.9 % (2.0-8.0); NEUTROPHILS % 76.8 % (40.0-76.0); PLATELET 402 x1000/uL (130-400); RED BLOOD CELL COUNT 3.12 mill/uL (4.7-6.1); RED CELL DISTRIBUTION WIDTH 18.5 % (11.6-14.6)
[2020-05-26] MEDS: CEFAZOLIN 1000MG PREMIX 50 ML IV SCH ×3 (05:32→21:09)
[2020-05-26] MEDS: OMEPRAZOLE 20MG CAPSULE EXTENDED RELEASE PO SCH (05:32)
[2020-05-26 05:33] LABS: CHLORIDE 101 mEq/L (98-107)
[2020-05-26 08:30] LABS: BG BASE EXCESS 7.1 mmol/L (-2.0-2.0); BG CARBOXYHEMOGLOBIN 0.2 % (0.5-1.5); BG DEOXYHEMOGLOBIN 0.9 % (0.0-5.0); BG FRACTION INSPIRED OXYGEN 35; BG HCO3 ACT 30.9 mmol/L (22.0-26.0); BG METHEMOGLOBIN 0.3 % (0.0-1.5); BG OXYGEN SATURATION 99.1 % (92.0-98.5); BG OXYHEMOGLOBIN 98.6 % (94.0-97.0); BG PCO2 40.6 mmHg (35.0-45.0); BG PH 7.499 (7.350-7.450); BG PO2 143.5 mmHg (75.0-100.0); BG TOTAL HEMOGLOBIN 9.3 g/dL (12.0-18.0); BG VENT MODE VENT - AC
[2020-05-26] MEDS: LEVETIRACETAM 500MG PREMIX 100 ML IV SCH ×2 (08:50→20:26)
[2020-05-26] MEDS: ENOXAPARIN 30MG/0.3ML SYR SUBCUT SCH ×2 (08:51→20:26)
[2020-05-26] MEDS: DOCUSATE SODIUM SUGAR FREE 100MG/10ML UDC NG SCH (08:51)
[2020-05-26] MEDS: THIAMINE HCL 100MG TABLET PO SCH (08:51)
[2020-05-26] MEDS: ASPIRIN 81MG TABLET PO SCH (08:51)
[2020-05-26] MEDS: MULTIVITAMINS,THER W-MINERALS TABLET PO SCH (08:52)
[2020-05-26] MEDS: FOLIC ACID 1MG TABLET PO SCH (08:53)
[2020-05-26] MEDS: LORAZEPAM 2MG/ML CPJ IV PRN (08:53)
[2020-05-27] VITALS (96 sets, daily range): BP systolic 102–147; BP diastolic 37–91
[2020-05-27] MEDS: IPRATROPIUM/ALBUTEROL 0.5-3(2.5)MG/3ML NEB HHN SCH ×4 (02:11→20:34)
[2020-05-27] MEDS: PROPOFOL 10MG/ML 100ML 100 ML IV PRN ×2 (02:58→06:36)
[2020-05-27] MEDS: OMEPRAZOLE 20MG CAPSULE EXTENDED RELEASE PO SCH (05:34)
[2020-05-27] MEDS: CEFAZOLIN 1000MG PREMIX 50 ML IV SCH ×3 (05:34→21:41)
[2020-05-27 08:27] LABS: BG BASE EXCESS 3.8 mmol/L (-2.0-2.0); BG CARBOXYHEMOGLOBIN 0.5 % (0.5-1.5); BG DEOXYHEMOGLOBIN 2.2 % (0.0-5.0); BG HCO3 ACT 27.4 mmol/L (22.0-26.0); BG METHEMOGLOBIN 0.3 % (0.0-1.5); BG OXYGEN SATURATION 97.8 % (92.0-98.5); BG PH 7.487 (7.350-7.450); BG PO2 99.7 mmHg (75.0-100.0); BG SAMPLE SITE RIGHT BRACHIAL; BG TOTAL HEMOGLOBIN 9.4 g/dL (12.0-18.0); BG VENT MODE VENT - AC
[2020-05-27] MEDS: FOLIC ACID 1MG TABLET PO SCH (09:55)
[2020-05-27] MEDS: LEVETIRACETAM 500MG PREMIX 100 ML IV SCH ×2 (09:55→20:26)
[2020-05-27] MEDS: THIAMINE HCL 100MG TABLET PO SCH (09:55)
[2020-05-27] MEDS: DOCUSATE SODIUM SUGAR FREE 100MG/10ML UDC NG SCH (09:55)
[2020-05-27] MEDS: MULTIVITAMINS,THER W-MINERALS TABLET PO SCH (09:55)
[2020-05-27] MEDS: ASPIRIN 81MG TABLET PO SCH (09:55)
[2020-05-27] MEDS: ENOXAPARIN 30MG/0.3ML SYR SUBCUT SCH ×2 (09:56→20:29)
[2020-05-27 11:04] LABS: BG BASE EXCESS 2.9 mmol/L (-2.0-2.0); BG CARBOXYHEMOGLOBIN 0.1 % (0.5-1.5); BG METHEMOGLOBIN 1.3 % (0.0-1.5); BG OXYHEMOGLOBIN 95.6 % (94.0-97.0); BG PCO2 39.4 mmHg (35.0-45.0); BG PH 7.454 (7.350-7.450); BG PO2 93.9 mmHg (75.0-100.0); BG SAMPLE SITE RIGHT BRACHIAL; BG TOTAL HEMOGLOBIN 9.3 g/dL (12.0-18.0); BG VENT MODE VENT - SIMV
[2020-05-27] MEDS: FUROSEMIDE 40MG/4ML VIAL IVP SCH (16:55)
[2020-05-27] MEDS: MORPHINE SULFATE 2 MG/ML CPJ (NOT FOR IM USE) IV PRN (20:27)
[2020-05-27] MEDS: ACETAMINOPHEN 325MG TABLET PO PRN (20:30)
[2020-05-28] VITALS (67 sets, daily range): BP systolic 99–154; BP diastolic 46–97
[2020-05-28] MEDS: LORAZEPAM 2MG/ML CPJ IV PRN ×2 (00:20→07:20)
[2020-05-28] MEDS: IPRATROPIUM/ALBUTEROL 0.5-3(2.5)MG/3ML NEB HHN SCH ×4 (02:13→20:34)
[2020-05-28] MEDS: CEFAZOLIN 1000MG PREMIX 50 ML IV SCH ×3 (05:32→20:48)
[2020-05-28] MEDS: OMEPRAZOLE 20MG CAPSULE EXTENDED RELEASE PO SCH (05:32)
[2020-05-28 06:03] LABS: CHLORIDE 99 mEq/L (98-107)
[2020-05-28 06:23] LABS: BASOPHILS % 2.8 % (0.0-2.0); EOSINOPHILS % 0.8 % (0.0-5.0); HEMATOCRIT. 24.7 % (42.0-52.0); HEMOGLOBIN. 8.3 g/dL (14.0-18.0); LYMPHOCYTES % 14.7 % (20.0-50.0); MEAN CORPUSCULAR HEMOGLOBIN 28.4 pg (28.0-32.0); MEAN CORPUSCULAR VOLUME 84.1 fL (80.0-94.0); MEAN PLATELET VOLUME 9.6 fl (7.4-10.4); MONOCYTES % 8.9 % (2.0-8.0); NEUTROPHILS % 72.8 % (40.0-76.0); PLATELET 395 x1000/uL (130-400); RED BLOOD CELL COUNT 2.94 mill/uL (4.7-6.1); RED CELL DISTRIBUTION WIDTH 18.7 % (11.6-14.6)
[2020-05-28] MEDS: ENOXAPARIN 30MG/0.3ML SYR SUBCUT SCH ×2 (09:22→20:22)
[2020-05-28] MEDS: DOCUSATE SODIUM SUGAR FREE 100MG/10ML UDC NG SCH (09:22)
[2020-05-28] MEDS: FOLIC ACID 1MG TABLET PO SCH (09:22)
[2020-05-28] MEDS: LEVETIRACETAM 500MG PREMIX 100 ML IV SCH ×2 (09:22→20:13)
[2020-05-28] MEDS: THIAMINE HCL 100MG TABLET PO SCH (09:22)
[2020-05-28] MEDS: FUROSEMIDE 40MG/4ML VIAL IVP SCH (09:22)
[2020-05-28] MEDS: ASPIRIN 81MG TABLET PO SCH (09:22)
[2020-05-28] MEDS: MULTIVITAMINS,THER W-MINERALS TABLET PO SCH (09:24)
[2020-05-28 10:09] LABS: BG BASE EXCESS 7.5 mmol/L (-2.0-2.0); BG CARBOXYHEMOGLOBIN 0.7 % (0.5-1.5); BG DEOXYHEMOGLOBIN 3.4 % (0.0-5.0); BG FRACTION INSPIRED OXYGEN 35; BG HCO3 ACT 31.4 mmol/L (22.0-26.0); BG METHEMOGLOBIN 1.6 % (0.0-1.5); BG OXYGEN SATURATION 96.5 % (92.0-98.5); BG OXYHEMOGLOBIN 94.3 % (94.0-97.0); BG PCO2 41.7 mmHg (35.0-45.0); BG PH 7.495 (7.350-7.450); BG PO2 92.8 mmHg (75.0-100.0); BG SAMPLE SITE LEFT RADIAL; BG TOTAL HEMOGLOBIN 6.6 g/dL (12.0-18.0); BG TOTAL RESPIRATORY RATE 25 b/min; BG VENT MODE VENT - SIMV
[2020-05-28 17:41] LABS: BG CARBOXYHEMOGLOBIN 0.2 % (0.5-1.5); BG DEOXYHEMOGLOBIN 4.1 % (0.0-5.0); BG HCO3 ACT 27.9 mmol/L (22.0-26.0); BG METHEMOGLOBIN 0.2 % (0.0-1.5); BG OXYGEN SATURATION 95.9 % (92.0-98.5); BG OXYHEMOGLOBIN 95.5 % (94.0-97.0); BG PCO2 38.9 mmHg (35.0-45.0); BG PH 7.473 (7.350-7.450); BG PO2 85.3 mmHg (75.0-100.0); BG SAMPLE SITE RIGHT BRACHIAL; BG TOTAL HEMOGLOBIN 9.5 g/dL (12.0-18.0); BG VENT MODE VENT - CPAP
[2020-05-28] MEDS: MORPHINE SULFATE 2 MG/ML CPJ (NOT FOR IM USE) IV PRN (20:23)
[2020-05-29] VITALS (48 sets, daily range): BP systolic 102–167; BP diastolic 48–97
[2020-05-29] MEDS: LORAZEPAM 2MG/ML CPJ IV PRN ×2 (00:58→15:31)
[2020-05-29] MEDS: IPRATROPIUM/ALBUTEROL 0.5-3(2.5)MG/3ML NEB HHN SCH ×4 (02:08→20:35)
[2020-05-29 05:48] LABS: BASOPHILS % 1.8 % (0.0-2.0); EOSINOPHILS % 0.5 % (0.0-5.0); HEMATOCRIT. 25.8 % (42.0-52.0); HEMOGLOBIN. 8.7 g/dL (14.0-18.0); LYMPHOCYTES % 17.2 % (20.0-50.0); MEAN CORPUSCULAR HEMOGLOBIN 28.1 pg (28.0-32.0); MEAN CORPUSCULAR VOLUME 83.5 fL (80.0-94.0); MEAN PLATELET VOLUME 9.3 fl (7.4-10.4); MONOCYTES % 10.3 % (2.0-8.0); NEUTROPHILS % 70.2 % (40.0-76.0); PLATELET 411 x1000/uL (130-400); RED BLOOD CELL COUNT 3.09 mill/uL (4.7-6.1); RED CELL DISTRIBUTION WIDTH 19.3 % (11.6-14.6)
[2020-05-29 05:59] LABS: CHLORIDE 99 mEq/L (98-107)
[2020-05-29] MEDS: CEFAZOLIN 1000MG PREMIX 50 ML IV SCH ×3 (06:09→21:19)
[2020-05-29] MEDS: OMEPRAZOLE 20MG CAPSULE EXTENDED RELEASE PO SCH (06:09)
[2020-05-29] MEDS: ASPIRIN 81MG TABLET PO SCH (08:05)
[2020-05-29] MEDS: ENOXAPARIN 30MG/0.3ML SYR SUBCUT SCH ×2 (08:05→21:19)
[2020-05-29] MEDS: DOCUSATE SODIUM SUGAR FREE 100MG/10ML UDC NG SCH (08:05)
[2020-05-29] MEDS: THIAMINE HCL 100MG TABLET PO SCH (08:05)
[2020-05-29] MEDS: FUROSEMIDE 40MG/4ML VIAL IVP SCH (08:05)
[2020-05-29] MEDS: FOLIC ACID 1MG TABLET PO SCH (08:05)
[2020-05-29] MEDS: LEVETIRACETAM 500MG PREMIX 100 ML IV SCH ×2 (08:06→21:19)
[2020-05-29] MEDS: MULTIVITAMINS,THER W-MINERALS TABLET PO SCH (08:06)
[2020-05-29 10:03] LABS: BG BASE EXCESS 3.1 mmol/L (-2.0-2.0); BG CARBOXYHEMOGLOBIN 1.1 % (0.5-1.5); BG DEOXYHEMOGLOBIN 2.5 % (0.0-5.0); BG FRACTION INSPIRED OXYGEN 35; BG METHEMOGLOBIN 0.3 % (0.0-1.5); BG OXYGEN SATURATION 97.5 % (92.0-98.5); BG OXYHEMOGLOBIN 96.1 % (94.0-97.0); BG PCO2 38.4 mmHg (35.0-45.0); BG PH 7.465 (7.350-7.450); BG PO2 96.5 mmHg (75.0-100.0); BG SAMPLE SITE RIGHT RADIAL; BG TOTAL HEMOGLOBIN 10.6 g/dL (12.0-18.0); BG VENT MODE VENT - SIMV
[2020-05-29] MEDS ORDERED: FUROSEMIDE 20MG/2ML VIAL IVP NR (12:30)
[2020-05-29] MEDS: ACETAMINOPHEN 325MG TABLET PO PRN ×2 (12:44→21:20)
[2020-05-29 14:40] LABS: BG BASE EXCESS 8.2 mmol/L (-2.0-2.0); BG CARBOXYHEMOGLOBIN 0.3 % (0.5-1.5); BG DEOXYHEMOGLOBIN 4.4 % (0.0-5.0); BG FRACTION INSPIRED OXYGEN 35; BG HCO3 ACT 32.3 mmol/L (22.0-26.0); BG METHEMOGLOBIN 0.7 % (0.0-1.5); BG OXYGEN SATURATION 95.6 % (92.0-98.5); BG OXYHEMOGLOBIN 94.6 % (94.0-97.0); BG PH 7.493 (7.350-7.450); BG PO2 78.4 mmHg (75.0-100.0); BG SAMPLE SITE LEFT RADIAL; BG TOTAL HEMOGLOBIN 9.7 g/dL (12.0-18.0); BG VENT MODE VENT - CPAP
[2020-05-29] MEDS ORDERED: LORAZEPAM 2MG/ML CPJ IV PRN (20:00)
[2020-05-30] VITALS (48 sets, daily range): BP systolic 103–148; BP diastolic 49–107
[2020-05-30] MEDS: IPRATROPIUM/ALBUTEROL 0.5-3(2.5)MG/3ML NEB HHN SCH ×4 (01:02→20:59)
[2020-05-30] MEDS: OMEPRAZOLE 20MG CAPSULE EXTENDED RELEASE PO SCH (05:26)
[2020-05-30] MEDS: CEFAZOLIN 1000MG PREMIX 50 ML IV SCH ×3 (05:26→22:38)
[2020-05-30 08:38] LABS: BG BASE EXCESS -1.8 mmol/L (-2.0-2.0); BG CARBOXYHEMOGLOBIN 0.2 % (0.5-1.5); BG FRACTION INSPIRED OXYGEN 35; BG HCO3 ACT 21.4 mmol/L (22.0-26.0); BG METHEMOGLOBIN 0.1 % (0.0-1.5); BG OXYHEMOGLOBIN 98.7 % (94.0-97.0); BG PCO2 32.1 mmHg (35.0-45.0); BG PH 7.442 (7.350-7.450); BG PO2 220.7 mmHg (75.0-100.0); BG SAMPLE SITE LEFT RADIAL; BG TOTAL HEMOGLOBIN 13.7 g/dL (12.0-18.0); BG VENT MODE VENT - SIMV
[2020-05-30] MEDS: THIAMINE HCL 100MG TABLET PO SCH (08:38)
[2020-05-30] MEDS: DOCUSATE SODIUM SUGAR FREE 100MG/10ML UDC NG SCH (08:38)
[2020-05-30] MEDS: ASPIRIN 81MG TABLET PO SCH (08:38)
[2020-05-30] MEDS: ENOXAPARIN 30MG/0.3ML SYR SUBCUT SCH ×2 (08:39→21:12)
[2020-05-30] MEDS: FOLIC ACID 1MG TABLET PO SCH (08:39)
[2020-05-30] MEDS: MULTIVITAMINS,THER W-MINERALS TABLET PO SCH (08:39)
[2020-05-30] MEDS: FUROSEMIDE 40MG/4ML VIAL IVP SCH (08:39)
[2020-05-30] MEDS: LEVETIRACETAM 500MG PREMIX 100 ML IV SCH ×2 (08:41→21:11)
[2020-05-30 10:07] LABS: CHLORIDE 100 mEq/L (98-107)
[2020-05-30] MEDS ORDERED: LORAZEPAM 2MG/ML CPJ IV PRN (11:15)
[2020-05-30 12:54] LABS: BG BASE EXCESS 7.5 mmol/L (-2.0-2.0); BG CARBOXYHEMOGLOBIN 0.3 % (0.5-1.5); BG DEOXYHEMOGLOBIN 2.2 % (0.0-5.0); BG HCO3 ACT 31.5 mmol/L (22.0-26.0); BG METHEMOGLOBIN 0.1 % (0.0-1.5); BG OXYGEN SATURATION 97.8 % (92.0-98.5); BG OXYHEMOGLOBIN 97.4 % (94.0-97.0); BG PCO2 41.9 mmHg (35.0-45.0); BG PH 7.494 (7.350-7.450); BG PO2 107.7 mmHg (75.0-100.0); BG SAMPLE SITE RIGHT RADIAL; BG TOTAL HEMOGLOBIN 9.7 g/dL (12.0-18.0); BG VENT MODE VENT - CPAP
[2020-05-31] VITALS (35 sets, daily range): BP systolic 113–152; BP diastolic 53–81
[2020-05-31] MEDS: IPRATROPIUM/ALBUTEROL 0.5-3(2.5)MG/3ML NEB HHN SCH ×2 (01:20→08:17)
[2020-05-31] MEDS: CEFAZOLIN 1000MG PREMIX 50 ML IV SCH ×3 (05:06→21:23)
[2020-05-31] MEDS: OMEPRAZOLE 20MG CAPSULE EXTENDED RELEASE PO SCH (05:44)
[2020-05-31] MEDS: BENZONATATE 100MG CAPSULE PO PRN (05:44)
[2020-05-31] MEDS: MULTIVITAMINS,THER W-MINERALS TABLET PO SCH (09:00)
[2020-05-31] MEDS: DOCUSATE SODIUM SUGAR FREE 100MG/10ML UDC NG SCH (10:02)
[2020-05-31] MEDS: FUROSEMIDE 40MG/4ML VIAL IVP SCH (10:02)
[2020-05-31] MEDS: ASPIRIN 81MG TABLET PO SCH (10:03)
[2020-05-31] MEDS: FOLIC ACID 1MG TABLET PO SCH (10:03)
[2020-05-31] MEDS: THIAMINE HCL 100MG TABLET PO SCH (10:03)
[2020-05-31] MEDS: ENOXAPARIN 30MG/0.3ML SYR SUBCUT SCH ×2 (10:04→20:37)
[2020-05-31] MEDS: LEVETIRACETAM 500MG PREMIX 100 ML IV SCH ×2 (10:55→20:37)
[2020-05-31 11:24] LABS: BG BASE EXCESS 8.7 mmol/L (-2.0-2.0); BG CARBOXYHEMOGLOBIN 1.3 % (0.5-1.5); BG DEOXYHEMOGLOBIN 9.6 % (0.0-5.0); BG FRACTION INSPIRED OXYGEN 21; BG HCO3 ACT 33.1 mmol/L (22.0-26.0); BG OXYGEN SATURATION 90.3 % (92.0-98.5); BG OXYHEMOGLOBIN 89.1 % (94.0-97.0); BG PCO2 45.3 mmHg (35.0-45.0); BG PH 7.481 (7.350-7.450); BG PO2 57.7 mmHg (75.0-100.0); BG SAMPLE SITE RIGHT RADIAL; BG TOTAL HEMOGLOBIN 9.3 g/dL (12.0-18.0); BG VENT MODE ROOM AIR
[2020-05-31] MEDS: AMMONIUM LACTATE 12% LOTION 240ML TOP SCH ×2 (14:50→20:37)
[2020-06-01] VITALS (13 sets, daily range): BP systolic 100–136; BP diastolic 46–70
[2020-06-01] MEDS: IPRATROPIUM/ALBUTEROL 0.5-3(2.5)MG/3ML NEB HHN SCH ×4 (01:53→20:09)
[2020-06-01] MEDS: CEFAZOLIN 1000MG PREMIX 50 ML IV SCH ×3 (05:36→22:00)
[2020-06-01] MEDS: OMEPRAZOLE 20MG CAPSULE EXTENDED RELEASE PO SCH (06:09)
[2020-06-01 08:50] LABS: BASOPHILS % 0.5 % (0.0-2.0); EOSINOPHILS % 0.5 % (0.0-5.0); HEMATOCRIT. 23.7 % (42.0-52.0); HEMOGLOBIN. 7.9 g/dL (14.0-18.0); LYMPHOCYTES % 15.8 % (20.0-50.0); MEAN CORPUSCULAR HEMOGLOBIN 28.1 pg (28.0-32.0); MEAN CORPUSCULAR VOLUME 83.8 fL (80.0-94.0); MEAN PLATELET VOLUME 9.5 fl (7.4-10.4); MONOCYTES % 10.5 % (2.0-8.0); NEUTROPHILS % 72.7 % (40.0-76.0); PLATELET 501 x1000/uL (130-400); RED BLOOD CELL COUNT 2.82 mill/uL (4.7-6.1); RED CELL DISTRIBUTION WIDTH 18.7 % (11.6-14.6)
[2020-06-01 09:00] LABS: CHLORIDE 97 mEq/L (98-107)
[2020-06-01] MEDS: DOCUSATE SODIUM SUGAR FREE 100MG/10ML UDC NG SCH (09:00)
[2020-06-01] MEDS: MULTIVITAMINS,THER W-MINERALS TABLET PO SCH (09:54)
[2020-06-01] MEDS: FOLIC ACID 1MG TABLET PO SCH (09:54)
[2020-06-01] MEDS: FUROSEMIDE 40MG/4ML VIAL IVP SCH (09:54)
[2020-06-01] MEDS: LEVETIRACETAM 500MG PREMIX 100 ML IV SCH ×2 (09:54→20:08)
[2020-06-01] MEDS: THIAMINE HCL 100MG TABLET PO SCH (09:55)
[2020-06-01] MEDS: AMMONIUM LACTATE 12% LOTION 240ML TOP SCH ×2 (09:57→17:31)
[2020-06-01] MEDS: RACEPINEPHRINE 2.25% 0.5ML NEB VIAL HHN PRN (10:20)
[2020-06-01] MEDS ORDERED: RACEPINEPHRINE 2.25% 0.5ML NEB VIAL ONE (10:24)
[2020-06-01] MEDS: PHENYLEPHRINE HCL 0.5% 15ML NASAL SPRAY BOTHNSTRLS PRN (12:45)
[2020-06-01 12:56] LABS: BG BASE EXCESS 6.6 mmol/L (-2.0-2.0); BG CARBOXYHEMOGLOBIN 0.8 % (0.5-1.5); BG DEOXYHEMOGLOBIN 3.7 % (0.0-5.0); BG FRACTION INSPIRED OXYGEN 28; BG HCO3 ACT 29.7 mmol/L (22.0-26.0); BG METHEMOGLOBIN 0.2 % (0.0-1.5); BG OXYGEN SATURATION 96.3 % (92.0-98.5); BG OXYHEMOGLOBIN 95.3 % (94.0-97.0); BG PCO2 36.4 mmHg (35.0-45.0); BG PO2 80.9 mmHg (75.0-100.0); BG SAMPLE SITE LEFT RADIAL; BG TOTAL HEMOGLOBIN 8.2 g/dL (12.0-18.0); BG VENT MODE MASK - VENTI
[2020-06-01] MEDS ORDERED: PHYTONADIONE 10MG/ML AMP SUBCUT NR (14:53)
[2020-06-01] MEDS ORDERED: OCTREOTIDE 1,000 MCG in SODIUM CHLORIDE 0.9% 98 ML IV SCH (15:03)
[2020-06-01 15:47] LABS: TOTAL IRON BINDING CAPACITY 251 ug/dL (250-450)
[2020-06-01 15:51] LABS: INR 1.3; PARTIAL THROMBOPLASTIN TIME 30.7 sec (23.4-31.0)
[2020-06-01] MEDS ORDERED: OCTREOTIDE ACETATE 50 MCG/ML 1ML IV SCH (16:00)
[2020-06-01 16:04] LABS: FERRITIN 228 ng/mL (22-322)
[2020-06-01 16:12] LABS: VITAMIN B12 SERUM 1562 pg/mL (211-911)
[2020-06-01 16:40] LABS: FOLIC ACID (FOLATE) SERUM > 20.00 ng/mL (>5.38)
[2020-06-01 18:16] LABS: HEMATOCRIT 23.8 % (42.0-52.0); HEMOGLOBIN 7.8 g/dL (14.0-18.0)
[2020-06-01] MEDS: PANTOPRAZOLE SODIUM 40 MG/VIAL IV SCH (20:08)
[2020-06-02] VITALS (47 sets, daily range): BP systolic 84–174; BP diastolic 31–99
[2020-06-02 00:36] LABS: HEMATOCRIT 21.5 % (42.0-52.0); HEMOGLOBIN 7.2 g/dL (14.0-18.0)
[2020-06-02] MEDS: IPRATROPIUM/ALBUTEROL 0.5-3(2.5)MG/3ML NEB HHN SCH ×5 (02:12→20:54)
[2020-06-02] MEDS: PHENYLEPHRINE HCL 0.5% 15ML NASAL SPRAY BOTHNSTRLS PRN (07:49)
[2020-06-02] MEDS: PANTOPRAZOLE SODIUM 40 MG/VIAL IV SCH ×2 (08:46→21:21)
[2020-06-02] MEDS: CEFAZOLIN 1000MG PREMIX 50 ML IV SCH ×3 (08:46→22:01)
[2020-06-02] MEDS: DOCUSATE SODIUM SUGAR FREE 100MG/10ML UDC NG SCH (09:00)
[2020-06-02] MEDS: MULTIVITAMINS,THER W-MINERALS TABLET PO SCH (09:00)
[2020-06-02] MEDS: THIAMINE HCL 100MG TABLET PO SCH (09:00)
[2020-06-02] MEDS: FOLIC ACID 1MG TABLET PO SCH (09:00)
[2020-06-02] MEDS: AMMONIUM LACTATE 12% LOTION 240ML TOP SCH ×2 (09:08→17:00)
[2020-06-02] MEDS: FUROSEMIDE 40MG/4ML VIAL IVP SCH (09:08)
[2020-06-02 09:38] LABS: BASOPHILS % 1.3 % (0.0-2.0); EOSINOPHILS % 0.6 % (0.0-5.0); HEMOGLOBIN. 7.7 g/dL (14.0-18.0); LYMPHOCYTES % 18.8 % (20.0-50.0); MEAN CORPUSCULAR VOLUME 83.9 fL (80.0-94.0); MEAN PLATELET VOLUME 9.3 fl (7.4-10.4); MONOCYTES % 11.5 % (2.0-8.0); NEUTROPHILS % 67.8 % (40.0-76.0); PLATELET 478 x1000/uL (130-400); RED BLOOD CELL COUNT 2.74 mill/uL (4.7-6.1); RED CELL DISTRIBUTION WIDTH 17.8 % (11.6-14.6)
[2020-06-02 09:55] LABS: CHLORIDE 100 mEq/L (98-107)
[2020-06-02] MEDS: LEVETIRACETAM 500MG PREMIX 100 ML IV SCH ×2 (09:57→21:22)
[2020-06-02 11:23] LABS: HEMATOCRIT 23.9 % (42.0-52.0); HEMOGLOBIN 7.8 g/dL (14.0-18.0)
[2020-06-02] MEDS ORDERED: FENTANYL CITRATE/PF 50MCG/ML 2ML VIAL ONE (11:50)
[2020-06-02] MEDS ORDERED: MIDAZOLAM HCL 2 MG/2 ML VIAL ONE ×2 (11:50→12:01)
[2020-06-02] MEDS ORDERED: DIPHENHYDRAMINE 50MG/ML VIAL ONE (11:51)
[2020-06-02] MEDS: IRON SUCROSE COMPLEX 100 MG/5 ML ML IV SCH (13:00)
[2020-06-02] MEDS: PHYTONADIONE 10MG/ML AMP SUBCUT SCH (13:23)
[2020-06-02] MEDS ORDERED: OXYMETAZOLINE HCL NASAL SPRAY 15ML BOTHNSTRLS PRN (13:30)
[2020-06-02] MEDS: PROPOFOL 10MG/ML 100ML 100 ML IV PRN ×2 (14:21→19:26)
[2020-06-02] MEDS: FENTANYL CITRATE/PF 2,500 MCG in SODIUM CHLORIDE 0.9% 200 ML IV PRN (15:36)
[2020-06-02 16:34] LABS: BG BASE EXCESS 6.8 mmol/L (-2.0-2.0); BG CARBOXYHEMOGLOBIN 0.8 % (0.5-1.5); BG DEOXYHEMOGLOBIN 0.8 % (0.0-5.0); BG FRACTION INSPIRED OXYGEN 50; BG HCO3 ACT 30.6 mmol/L (22.0-26.0); BG METHEMOGLOBIN 0.3 % (0.0-1.5); BG OXYGEN SATURATION 99.2 % (92.0-98.5); BG OXYHEMOGLOBIN 98.1 % (94.0-97.0); BG PCO2 40.4 mmHg (35.0-45.0); BG PH 7.497 (7.350-7.450); BG PO2 158.5 mmHg (75.0-100.0); BG SAMPLE SITE LEFT RADIAL; BG TOTAL HEMOGLOBIN 7.5 g/dL (12.0-18.0); BG TOTAL RESPIRATORY RATE 16 b/min; BG VENT MODE VENT - AC
[2020-06-02] MEDS ORDERED: ACETAMINOPHEN 650MG SUPP PR PRN (17:00)
[2020-06-02 19:22] LABS: HEMATOCRIT 20.8 % (42.0-52.0)
[2020-06-02] MEDS: LACTULOSE 20G/30ML UDC PO SCH (19:25)
[2020-06-03] VITALS (80 sets, daily range): BP systolic 97–134; BP diastolic 40–88
[2020-06-03] MEDS: PROPOFOL 10MG/ML 100ML 100 ML IV PRN ×4 (00:52→22:35)
[2020-06-03] MEDS: IPRATROPIUM/ALBUTEROL 0.5-3(2.5)MG/3ML NEB HHN SCH ×4 (03:03→19:57)
[2020-06-03] MEDS: CEFAZOLIN 1000MG PREMIX 50 ML IV SCH ×3 (07:03→21:53)
[2020-06-03] MEDS: PANTOPRAZOLE SODIUM 40 MG/VIAL IV SCH ×2 (09:22→20:30)
[2020-06-03] MEDS: FUROSEMIDE 40MG/4ML VIAL IVP SCH (09:22)
[2020-06-03] MEDS: LEVETIRACETAM 500MG PREMIX 100 ML IV SCH ×2 (09:22→20:29)
[2020-06-03] MEDS: LACTULOSE 20G/30ML UDC PO SCH ×2 (09:22→17:29)
[2020-06-03] MEDS: MULTIVITAMINS,THER W-MINERALS TABLET PO SCH (09:22)
[2020-06-03] MEDS: IRON SUCROSE COMPLEX 100 MG/5 ML ML IV SCH (09:22)
[2020-06-03] MEDS: DOCUSATE SODIUM SUGAR FREE 100MG/10ML UDC NG SCH (09:22)
[2020-06-03] MEDS: THIAMINE HCL 100MG TABLET PO SCH (09:22)
[2020-06-03] MEDS: FOLIC ACID 1MG TABLET PO SCH (09:23)
[2020-06-03] MEDS: PHYTONADIONE 10MG/ML AMP SUBCUT SCH (09:24)
[2020-06-03 09:48] LABS: EOSINOPHILS % 2.2 % (0.0-5.0); HEMATOCRIT. 25.3 % (42.0-52.0); HEMOGLOBIN. 8.4 g/dL (14.0-18.0); LYMPHOCYTES % 19.3 % (20.0-50.0); MEAN CORPUSCULAR HEMOGLOBIN 28.6 pg (28.0-32.0); MEAN CORPUSCULAR VOLUME 86.2 fL (80.0-94.0); MEAN PLATELET VOLUME 9.3 fl (7.4-10.4); MONOCYTES % 11.1 % (2.0-8.0); NEUTROPHILS % 66.4 % (40.0-76.0); PLATELET 376 x1000/uL (130-400); RED BLOOD CELL COUNT 2.93 mill/uL (4.7-6.1)
[2020-06-03 10:11] LABS: CHLORIDE 102 mEq/L (98-107)
[2020-06-03 18:56] LABS: BG PH 7.433 (7.350-7.450); BG SAMPLE SITE LEFT RADIAL
[2020-06-04] VITALS (72 sets, daily range): BP systolic 98–144; BP diastolic 42–78
[2020-06-04] MEDS: PROPOFOL 10MG/ML 100ML 100 ML IV PRN ×5 (01:33→18:22)
[2020-06-04] MEDS: IPRATROPIUM/ALBUTEROL 0.5-3(2.5)MG/3ML NEB HHN SCH ×3 (01:51→15:38)
[2020-06-04] MEDS: ACETAMINOPHEN 325MG TABLET PO PRN (04:25)
[2020-06-04] MEDS: CEFAZOLIN 1000MG PREMIX 50 ML IV SCH ×3 (05:47→23:33)
[2020-06-04 06:17] LABS: BASOPHILS % 1.1 % (0.0-2.0); EOSINOPHILS % 2.2 % (0.0-5.0); HEMATOCRIT. 23.6 % (42.0-52.0); HEMOGLOBIN. 7.8 g/dL (14.0-18.0); LYMPHOCYTES % 13.3 % (20.0-50.0); MEAN CORPUSCULAR VOLUME 87.9 fL (80.0-94.0); MEAN PLATELET VOLUME 9.2 fl (7.4-10.4); MONOCYTES % 9.2 % (2.0-8.0); NEUTROPHILS % 74.2 % (40.0-76.0); PLATELET 409 x1000/uL (130-400); RED BLOOD CELL COUNT 2.68 mill/uL (4.7-6.1); RED CELL DISTRIBUTION WIDTH 17.5 % (11.6-14.6)
[2020-06-04 06:29] LABS: CHLORIDE 103 mEq/L (98-107)
[2020-06-04] MEDS: FENTANYL CITRATE/PF 2,500 MCG in SODIUM CHLORIDE 0.9% 200 ML IV PRN (07:10)
[2020-06-04] MEDS: PANTOPRAZOLE SODIUM 40 MG/VIAL IV SCH ×2 (08:20→20:59)
[2020-06-04] MEDS: FUROSEMIDE 40MG/4ML VIAL IVP SCH (08:20)
[2020-06-04] MEDS: THIAMINE HCL 100MG TABLET PO SCH (08:20)
[2020-06-04] MEDS: MULTIVITAMINS,THER W-MINERALS TABLET PO SCH (08:20)
[2020-06-04] MEDS: LACTULOSE 20G/30ML UDC PO SCH ×2 (08:20→18:15)
[2020-06-04] MEDS: FOLIC ACID 1MG TABLET PO SCH (08:21)
[2020-06-04] MEDS: PHYTONADIONE 10MG/ML AMP SUBCUT SCH (08:28)
[2020-06-04] MEDS: DOCUSATE SODIUM SUGAR FREE 100MG/10ML UDC NG SCH (08:28)
[2020-06-04] MEDS: LEVETIRACETAM 500MG PREMIX 100 ML IV SCH ×2 (08:28→21:00)
[2020-06-04] MEDS: IRON SUCROSE COMPLEX 100 MG/5 ML ML IV SCH (08:28)
[2020-06-05] VITALS (25 sets, daily range): BP systolic 101–117; BP diastolic 39–61
[2020-06-05] MEDS: PROPOFOL 10MG/ML 100ML 100 ML IV PRN ×5 (01:01→22:40)
[2020-06-05] MEDS: CEFAZOLIN 1000MG PREMIX 50 ML IV SCH ×3 (05:22→22:46)
[2020-06-05 08:38] LABS: BG BASE EXCESS 4.6 mmol/L (-2.0-2.0); BG CARBOXYHEMOGLOBIN 0.3 % (0.5-1.5); BG DEOXYHEMOGLOBIN 4.9 % (0.0-5.0); BG FRACTION INSPIRED OXYGEN 40; BG HCO3 ACT 29.7 mmol/L (22.0-26.0); BG METHEMOGLOBIN 0.3 % (0.0-1.5); BG OXYGEN SATURATION 95.1 % (92.0-98.5); BG OXYHEMOGLOBIN 94.5 % (94.0-97.0); BG PH 7.418 (7.350-7.450); BG SAMPLE SITE RIGHT RADIAL; BG TOTAL HEMOGLOBIN 8.7 g/dL (12.0-18.0); BG TOTAL RESPIRATORY RATE 16 b/min; BG VENT MODE VENT - SIMV
[2020-06-05] MEDS: AMMONIUM LACTATE 12% LOTION 240ML TOP SCH (09:00)
[2020-06-05] MEDS: FOLIC ACID 1MG TABLET PO SCH (09:00)
[2020-06-05] MEDS: FENTANYL CITRATE/PF 2,500 MCG in SODIUM CHLORIDE 0.9% 200 ML IV PRN (09:14)
[2020-06-05] MEDS: FUROSEMIDE 40MG/4ML VIAL IVP SCH (09:35)
[2020-06-05] MEDS: LACTULOSE 20G/30ML UDC PO SCH (09:35)
[2020-06-05] MEDS: PHYTONADIONE 10MG/ML AMP SUBCUT SCH (09:36)
[2020-06-05] MEDS: DOCUSATE SODIUM SUGAR FREE 100MG/10ML UDC NG SCH (09:36)
[2020-06-05] MEDS: MULTIVITAMINS,THER W-MINERALS TABLET PO SCH (09:36)
[2020-06-05] MEDS: THIAMINE HCL 100MG TABLET PO SCH (09:36)
[2020-06-05] MEDS: PANTOPRAZOLE SODIUM 40 MG/VIAL IV SCH ×2 (09:37→22:51)
[2020-06-05] MEDS: ACETAMINOPHEN 325MG TABLET PO PRN ×2 (09:40→18:41)
[2020-06-05] MEDS: LEVETIRACETAM 500MG PREMIX 100 ML IV SCH ×2 (09:40→22:45)
[2020-06-05] MEDS: IPRATROPIUM/ALBUTEROL 0.5-3(2.5)MG/3ML NEB HHN SCH ×2 (12:53→20:50)
[2020-06-05] MEDS ORDERED: LACTULOSE 20G/30ML UDC PO PRN (13:30)
[2020-06-05 16:04] LABS: BASOPHILS % 0.7 % (0.0-2.0); EOSINOPHILS % 3.2 % (0.0-5.0); HEMATOCRIT. 23.2 % (42.0-52.0); LYMPHOCYTES % 17.9 % (20.0-50.0); MEAN CORPUSCULAR HEMOGLOBIN 30.2 pg (28.0-32.0); MEAN CORPUSCULAR VOLUME 87.6 fL (80.0-94.0); MEAN PLATELET VOLUME 9.2 fl (7.4-10.4); MONOCYTES % 7.8 % (2.0-8.0); NEUTROPHILS % 70.4 % (40.0-76.0); PLATELET 374 x1000/uL (130-400); RED BLOOD CELL COUNT 2.64 mill/uL (4.7-6.1); RED CELL DISTRIBUTION WIDTH 18.1 % (11.6-14.6)
[2020-06-05 16:23] LABS: CHLORIDE 104 mEq/L (98-107)
[2020-06-06] VITALS (34 sets, daily range): BP systolic 98–142; BP diastolic 37–80
[2020-06-06] MEDS: PROPOFOL 10MG/ML 100ML 100 ML IV PRN ×5 (03:03→23:26)
[2020-06-06 06:15] LABS: BASOPHILS % 0.8 % (0.0-2.0); EOSINOPHILS % 3.5 % (0.0-5.0); HEMATOCRIT. 21.8 % (42.0-52.0); HEMOGLOBIN. 7.2 g/dL (14.0-18.0); LYMPHOCYTES % 19.7 % (20.0-50.0); MEAN CORPUSCULAR HEMOGLOBIN 29.6 pg (28.0-32.0); MEAN CORPUSCULAR VOLUME 89.5 fL (80.0-94.0); MEAN PLATELET VOLUME 9.2 fl (7.4-10.4); MONOCYTES % 9.4 % (2.0-8.0); NEUTROPHILS % 66.6 % (40.0-76.0); PLATELET 308 x1000/uL (130-400); RED BLOOD CELL COUNT 2.43 mill/uL (4.7-6.1); RED CELL DISTRIBUTION WIDTH 17.8 % (11.6-14.6)
[2020-06-06 06:41] LABS: CHLORIDE 104 mEq/L (98-107)
[2020-06-06] MEDS: IPRATROPIUM/ALBUTEROL 0.5-3(2.5)MG/3ML NEB HHN SCH ×4 (07:59→20:09)
[2020-06-06] MEDS: FENTANYL CITRATE/PF 2,500 MCG in SODIUM CHLORIDE 0.9% 200 ML IV PRN (08:41)
[2020-06-06] MEDS ORDERED: SODIUM CHLORIDE 0.9% 10ML VIAL ONE (09:00)
[2020-06-06] MEDS ORDERED: VECURONIUM BROMIDE 10 MG/VIAL IV ONE (09:00)
[2020-06-06] MEDS ORDERED: ETOMIDATE 2MG/ML 10ML VIAL IV ONE (09:00)
[2020-06-06] MEDS: MULTIVITAMINS,THER W-MINERALS TABLET PO SCH (09:01)
[2020-06-06] MEDS: FOLIC ACID 1MG TABLET PO SCH (09:01)
[2020-06-06] MEDS: FUROSEMIDE 40MG/4ML VIAL IVP SCH (09:01)
[2020-06-06] MEDS: THIAMINE HCL 100MG TABLET PO SCH (09:01)
[2020-06-06] MEDS: PANTOPRAZOLE SODIUM 40 MG/VIAL IV SCH ×2 (09:02→21:23)
[2020-06-06] MEDS: LEVETIRACETAM 500MG PREMIX 100 ML IV SCH ×2 (09:02→21:23)
[2020-06-06] MEDS: ACETAMINOPHEN 325MG TABLET PO PRN (09:03)
[2020-06-06] MEDS: DOCUSATE SODIUM SUGAR FREE 100MG/10ML UDC NG SCH (09:17)
[2020-06-06 11:48] LABS: BG FRACTION INSPIRED OXYGEN 40; BG PCO2 45.7 mmHg (35.0-45.0); BG VENT MODE VENT-A/C
[2020-06-06 11:52] LABS: BG PO2 154.6 mmHg (75.0-100.0)
[2020-06-06 11:53] LABS: BG HCO3 ACT 30.1 mmol/L (22.0-26.0)
[2020-06-06 11:54] LABS: BG BASE EXCESS 5.2 mmol/L (-2.0-2.0)
[2020-06-06 11:55] LABS: BG OXYGEN SATURATION 98.9 % (92.0-98.5); BG TOTAL HEMOGLOBIN 9.2 g/dL (12.0-18.0)
[2020-06-06 11:56] LABS: BG OXYHEMOGLOBIN 98.3 % (94.0-97.0)
[2020-06-06 11:57] LABS: BG CARBOXYHEMOGLOBIN 0.4 % (0.5-1.5); BG METHEMOGLOBIN 0.2 % (0.0-1.5)
[2020-06-06 11:58] LABS: BG DEOXYHEMOGLOBIN 1.1 % (0.0-5.0)
[2020-06-06] MEDS ORDERED: POTASSIUM CHLORIDE 20MEQ TABLET SR PO SCH (13:00)
[2020-06-06] MEDS: CEFAZOLIN 1000MG PREMIX 50 ML IV SCH (17:39)
[2020-06-06] MEDS: PROPRANOLOL HCL 10MG TABLET NG SCH (21:24)
[2020-06-07] VITALS (77 sets, daily range): BP systolic 99–154; BP diastolic 37–78
[2020-06-07] MEDS: CEFAZOLIN 1000MG PREMIX 50 ML IV SCH ×3 (00:20→17:49)
[2020-06-07] MEDS: IPRATROPIUM/ALBUTEROL 0.5-3(2.5)MG/3ML NEB HHN SCH ×4 (01:31→21:00)
[2020-06-07] MEDS: PROPOFOL 10MG/ML 100ML 100 ML IV PRN ×3 (04:31→17:54)
[2020-06-07 06:17] LABS: CHLORIDE 106 mEq/L (98-107)
[2020-06-07 06:50] LABS: BASOPHILS % 0.9 % (0.0-2.0); EOSINOPHILS % 3.1 % (0.0-5.0); HEMATOCRIT. 23.3 % (42.0-52.0); HEMOGLOBIN. 7.6 g/dL (14.0-18.0); LYMPHOCYTES % 20.4 % (20.0-50.0); MEAN CORPUSCULAR HEMOGLOBIN 29.4 pg (28.0-32.0); MEAN CORPUSCULAR VOLUME 89.7 fL (80.0-94.0); MEAN PLATELET VOLUME 9.6 fl (7.4-10.4); MONOCYTES % 9.5 % (2.0-8.0); NEUTROPHILS % 66.1 % (40.0-76.0); PLATELET 293 x1000/uL (130-400); RED CELL DISTRIBUTION WIDTH 18.3 % (11.6-14.6)
[2020-06-07 08:17] LABS: WEST NILE VIRUS CSF IGG Positive (Negative); WEST NILE VIRUS CSF IGM Negative (Negative)
[2020-06-07 09:04] LABS: BG BASE EXCESS 5.6 mmol/L (-2.0-2.0); BG CARBOXYHEMOGLOBIN 0.4 % (0.5-1.5); BG DEOXYHEMOGLOBIN 0.8 % (0.0-5.0); BG FRACTION INSPIRED OXYGEN 40; BG HCO3 ACT 29.7 mmol/L (22.0-26.0); BG METHEMOGLOBIN 0.4 % (0.0-1.5); BG OXYGEN SATURATION 99.2 % (92.0-98.5); BG OXYHEMOGLOBIN 98.4 % (94.0-97.0); BG PCO2 41.6 mmHg (35.0-45.0); BG PH 7.472 (7.350-7.450); BG SAMPLE SITE RIGHT RADIAL; BG TOTAL HEMOGLOBIN 8.2 g/dL (12.0-18.0); BG TOTAL RESPIRATORY RATE 15 b/min; BG VENT MODE VENT - SIMV
[2020-06-07] MEDS: PANTOPRAZOLE SODIUM 40 MG/VIAL IV SCH ×2 (09:22→20:56)
[2020-06-07] MEDS: LEVETIRACETAM 500MG PREMIX 100 ML IV SCH ×2 (09:23→20:57)
[2020-06-07] MEDS: FOLIC ACID 1MG TABLET PO SCH (09:23)
[2020-06-07] MEDS: FUROSEMIDE 40MG/4ML VIAL IVP SCH (09:23)
[2020-06-07] MEDS: THIAMINE HCL 100MG TABLET PO SCH (09:23)
[2020-06-07] MEDS: MULTIVITAMINS,THER W-MINERALS TABLET PO SCH (09:23)
[2020-06-07] MEDS: DOCUSATE SODIUM SUGAR FREE 100MG/10ML UDC NG SCH (09:30)
[2020-06-07] MEDS: PROPRANOLOL HCL 10MG TABLET NG SCH ×2 (09:31→20:56)
[2020-06-07] MEDS: FENTANYL CITRATE/PF 2,500 MCG in SODIUM CHLORIDE 0.9% 200 ML IV PRN (09:43)
[2020-06-07] MEDS: LACTULOSE 20G/30ML UDC PO SCH ×2 (14:39→17:51)
[2020-06-07] MEDS: ACETAMINOPHEN 325MG TABLET PO PRN (20:58)
[2020-06-08] VITALS (75 sets, daily range): BP systolic 106–169; BP diastolic 44–88
[2020-06-08] MEDS: IPRATROPIUM/ALBUTEROL 0.5-3(2.5)MG/3ML NEB HHN SCH ×4 (00:27→20:45)
[2020-06-08] MEDS: ACETYLCYSTEINE 100MG/ML 10% VIAL 4ML INH SCH ×3 (00:28→14:53)
[2020-06-08] MEDS: LACTULOSE 20G/30ML UDC PO SCH ×5 (00:46→21:43)
[2020-06-08] MEDS: CEFAZOLIN 1000MG PREMIX 50 ML IV SCH ×3 (00:47→16:28)
[2020-06-08] MEDS ORDERED: PROPOFOL 10MG/ML 100ML 100 ML IV PRN (03:15)
[2020-06-08 06:23] LABS: BASOPHILS % 0.8 % (0.0-2.0); EOSINOPHILS % 3.6 % (0.0-5.0); HEMATOCRIT. 25.9 % (42.0-52.0); HEMOGLOBIN. 8.5 g/dL (14.0-18.0); LYMPHOCYTES % 16.6 % (20.0-50.0); MEAN CORPUSCULAR HEMOGLOBIN 29.3 pg (28.0-32.0); MEAN CORPUSCULAR VOLUME 89.9 fL (80.0-94.0); MEAN PLATELET VOLUME 9.9 fl (7.4-10.4); MONOCYTES % 8.6 % (2.0-8.0); NEUTROPHILS % 70.4 % (40.0-76.0); PLATELET 329 x1000/uL (130-400); RED BLOOD CELL COUNT 2.88 mill/uL (4.7-6.1); RED CELL DISTRIBUTION WIDTH 18.4 % (11.6-14.6)
[2020-06-08 06:35] LABS: CHLORIDE 103 mEq/L (98-107)
[2020-06-08] MEDS: FENTANYL CITRATE/PF 2,500 MCG in SODIUM CHLORIDE 0.9% 200 ML IV PRN (07:19)
[2020-06-08 07:52] LABS: BG BASE EXCESS 5.3 mmol/L (-2.0-2.0); BG CARBOXYHEMOGLOBIN 0.4 % (0.5-1.5); BG DEOXYHEMOGLOBIN 1.7 % (0.0-5.0); BG FRACTION INSPIRED OXYGEN 40; BG HCO3 ACT 30.3 mmol/L (22.0-26.0); BG METHEMOGLOBIN 0.4 % (0.0-1.5); BG OXYGEN SATURATION 98.3 % (92.0-98.5); BG OXYHEMOGLOBIN 97.5 % (94.0-97.0); BG PCO2 46.9 mmHg (35.0-45.0); BG PH 7.428 (7.350-7.450); BG PO2 120.1 mmHg (75.0-100.0); BG SAMPLE SITE RIGHT RADIAL; BG TOTAL HEMOGLOBIN 8.2 g/dL (12.0-18.0); BG TOTAL RESPIRATORY RATE 14 b/min; BG VENT MODE VENT - SIMV
[2020-06-08] MEDS: FUROSEMIDE 40MG/4ML VIAL IVP SCH (09:36)
[2020-06-08] MEDS: DOCUSATE SODIUM SUGAR FREE 100MG/10ML UDC NG SCH (09:36)
[2020-06-08] MEDS: FOLIC ACID 1MG TABLET PO SCH (09:36)
[2020-06-08] MEDS: MULTIVITAMINS,THER W-MINERALS TABLET PO SCH (09:37)
[2020-06-08] MEDS: THIAMINE HCL 100MG TABLET PO SCH (09:37)
[2020-06-08] MEDS: PROPRANOLOL HCL 10MG TABLET NG SCH ×2 (09:37→21:00)
[2020-06-08] MEDS: LEVETIRACETAM 500MG PREMIX 100 ML IV SCH ×2 (09:38→21:43)
[2020-06-08] MEDS: PANTOPRAZOLE SODIUM 40 MG/VIAL IV SCH ×2 (09:41→21:43)
[2020-06-08] MEDS: PROPOFOL 10MG/ML 100ML 100 ML IV PRN ×2 (09:59→16:27)
[2020-06-08] MEDS: QUETIAPINE FUMARATE 25MG TABLET PO SCH ×2 (13:34→21:43)
[2020-06-08] MEDS: ACETAMINOPHEN 325MG TABLET PO PRN (17:43)
[2020-06-09] VITALS (30 sets, daily range): BP systolic 102–133; BP diastolic 42–66
[2020-06-09] MEDS: CEFAZOLIN 1000MG PREMIX 50 ML IV SCH ×2 (00:27→10:19)
[2020-06-09] MEDS: FENTANYL CITRATE/PF 2,500 MCG in SODIUM CHLORIDE 0.9% 200 ML IV PRN ×3 (01:03→23:38)
[2020-06-09] MEDS: PROPOFOL 10MG/ML 100ML 100 ML IV PRN ×4 (04:09→22:23)
[2020-06-09] MEDS: IPRATROPIUM/ALBUTEROL 0.5-3(2.5)MG/3ML NEB HHN SCH ×4 (04:39→19:57)
[2020-06-09] MEDS: LACTULOSE 20G/30ML UDC PO SCH ×3 (05:33→23:46)
[2020-06-09 07:29] LABS: BASOPHILS % 0.7 % (0.0-2.0); EOSINOPHILS % 3.8 % (0.0-5.0); HEMOGLOBIN. 8.2 g/dL (14.0-18.0); LYMPHOCYTES % 22.7 % (20.0-50.0); MEAN CORPUSCULAR HEMOGLOBIN 30.2 pg (28.0-32.0); MEAN CORPUSCULAR VOLUME 88.7 fL (80.0-94.0); MEAN PLATELET VOLUME 9.4 fl (7.4-10.4); MONOCYTES % 10.1 % (2.0-8.0); NEUTROPHILS % 62.7 % (40.0-76.0); PLATELET 318 x1000/uL (130-400); RED BLOOD CELL COUNT 2.71 mill/uL (4.7-6.1); RED CELL DISTRIBUTION WIDTH 17.5 % (11.6-14.6)
[2020-06-09] MEDS: ACETYLCYSTEINE 100MG/ML 10% VIAL 4ML INH SCH ×2 (08:45→14:37)
[2020-06-09 08:46] LABS: CHLORIDE 102 mEq/L (98-107)
[2020-06-09] MEDS: MULTIVITAMINS,THER W-MINERALS TABLET PO SCH (09:00)
[2020-06-09 09:45] LABS: BG BASE EXCESS 7.7 mmol/L (-2.0-2.0); BG CARBOXYHEMOGLOBIN 0.3 % (0.5-1.5); BG DEOXYHEMOGLOBIN 1.3 % (0.0-5.0); BG FRACTION INSPIRED OXYGEN 40; BG HCO3 ACT 33.4 mmol/L (22.0-26.0); BG METHEMOGLOBIN 0.3 % (0.0-1.5); BG OXYGEN SATURATION 98.7 % (92.0-98.5); BG OXYHEMOGLOBIN 98.1 % (94.0-97.0); BG PCO2 53.7 mmHg (35.0-45.0); BG PH 7.411 (7.350-7.450); BG PO2 132.4 mmHg (75.0-100.0); BG SAMPLE SITE RIGHT RADIAL; BG TOTAL RESPIRATORY RATE 11 b/min; BG VENT MODE VENT - SIMV
[2020-06-09] MEDS: DOCUSATE SODIUM SUGAR FREE 100MG/10ML UDC NG SCH (10:19)
[2020-06-09] MEDS: LEVETIRACETAM 500MG PREMIX 100 ML IV SCH ×2 (10:19→20:38)
[2020-06-09] MEDS: FUROSEMIDE 40MG/4ML VIAL IVP SCH (10:20)
[2020-06-09] MEDS: PANTOPRAZOLE SODIUM 40 MG/VIAL IV SCH ×2 (10:20→20:38)
[2020-06-09] MEDS: QUETIAPINE FUMARATE 25MG TABLET PO SCH ×2 (10:21→20:38)
[2020-06-09] MEDS: THIAMINE HCL 100MG TABLET PO SCH (10:21)
[2020-06-09] MEDS: PROPRANOLOL HCL 10MG TABLET NG SCH ×2 (10:22→20:39)
[2020-06-09] MEDS: FOLIC ACID 1MG TABLET PO SCH (10:22)
[2020-06-09] MEDS: CEFAZOLIN 2000MG in DEXTROSE 5% WATER 100ML IV SCH (18:11)
[2020-06-10] VITALS (34 sets, daily range): BP systolic 101–120; BP diastolic 36–59
[2020-06-10] MEDS: CEFAZOLIN 2000MG in DEXTROSE 5% WATER 100ML IV SCH ×3 (01:33→18:25)
[2020-06-10] MEDS: ACETYLCYSTEINE 100MG/ML 10% VIAL 4ML INH SCH (01:58)
[2020-06-10] MEDS: IPRATROPIUM/ALBUTEROL 0.5-3(2.5)MG/3ML NEB HHN SCH ×4 (01:58→21:08)
[2020-06-10] MEDS: LACTULOSE 20G/30ML UDC PO SCH ×4 (05:02→23:48)
[2020-06-10] MEDS: PROPOFOL 10MG/ML 100ML 100 ML IV PRN ×5 (05:54→22:58)
[2020-06-10] MEDS: DOCUSATE SODIUM SUGAR FREE 100MG/10ML UDC NG SCH (09:00)
[2020-06-10] MEDS: LEVETIRACETAM 500MG PREMIX 100 ML IV SCH ×2 (10:05→20:51)
[2020-06-10] MEDS: FUROSEMIDE 40MG/4ML VIAL IVP SCH (10:07)
[2020-06-10] MEDS: FOLIC ACID 1MG TABLET PO SCH (10:08)
[2020-06-10] MEDS: THIAMINE HCL 100MG TABLET PO SCH (10:09)
[2020-06-10] MEDS: MULTIVITAMINS,THER W-MINERALS TABLET PO SCH (10:09)
[2020-06-10] MEDS: QUETIAPINE FUMARATE 25MG TABLET PO SCH ×2 (10:09→20:51)
[2020-06-10] MEDS: PANTOPRAZOLE SODIUM 40 MG/VIAL IV SCH ×2 (10:12→20:51)
[2020-06-10] MEDS: PROPRANOLOL HCL 10MG TABLET NG SCH ×2 (10:12→20:51)
[2020-06-10] MEDS: FENTANYL CITRATE/PF 2,500 MCG in SODIUM CHLORIDE 0.9% 200 ML IV PRN ×2 (11:13→21:04)
[2020-06-11] VITALS (47 sets, daily range): BP systolic 102–175; BP diastolic 39–100
[2020-06-11] MEDS: IPRATROPIUM/ALBUTEROL 0.5-3(2.5)MG/3ML NEB HHN SCH ×5 (01:57→21:15)
[2020-06-11] MEDS: ACETYLCYSTEINE 100MG/ML 10% VIAL 4ML INH SCH ×4 (01:57→21:15)
[2020-06-11] MEDS: CEFAZOLIN 2000MG in DEXTROSE 5% WATER 100ML IV SCH ×3 (02:05→17:16)
[2020-06-11] MEDS: PROPOFOL 10MG/ML 100ML 100 ML IV PRN ×3 (05:32→19:05)
[2020-06-11] MEDS: LACTULOSE 20G/30ML UDC PO SCH ×3 (05:59→22:13)
[2020-06-11] MEDS: FENTANYL CITRATE/PF 2,500 MCG in SODIUM CHLORIDE 0.9% 200 ML IV PRN ×2 (07:02→18:05)
[2020-06-11] MEDS: DOCUSATE SODIUM SUGAR FREE 100MG/10ML UDC NG SCH (09:18)
[2020-06-11] MEDS: QUETIAPINE FUMARATE 25MG TABLET PO SCH ×2 (09:18→20:47)
[2020-06-11] MEDS: PANTOPRAZOLE SODIUM 40 MG/VIAL IV SCH ×2 (09:18→20:46)
[2020-06-11] MEDS: FOLIC ACID 1MG TABLET PO SCH (09:19)
[2020-06-11] MEDS: THIAMINE HCL 100MG TABLET PO SCH (09:19)
[2020-06-11] MEDS: MULTIVITAMINS,THER W-MINERALS TABLET PO SCH (09:19)
[2020-06-11] MEDS: PROPRANOLOL HCL 10MG TABLET NG SCH ×2 (09:20→20:46)
[2020-06-11] MEDS: FUROSEMIDE 40MG/4ML VIAL IVP SCH (09:21)
[2020-06-11] MEDS: LEVETIRACETAM 500MG PREMIX 100 ML IV SCH ×2 (09:23→20:45)
[2020-06-11 16:35] LABS: HEMATOCRIT. 23.8 % (42.0-52.0); HEMOGLOBIN. 7.9 g/dL (14.0-18.0); MEAN CORPUSCULAR HEMOGLOBIN 29.2 pg (28.0-32.0); MEAN CORPUSCULAR VOLUME 88.3 fL (80.0-94.0); MEAN PLATELET VOLUME 10.8 fl (7.4-10.4); PLATELET 285 x1000/uL (130-400); RED CELL DISTRIBUTION WIDTH 16.9 % (11.6-14.6)
[2020-06-11 16:37] LABS: CHLORIDE 100 mEq/L (98-107)
[2020-06-11] MEDS: AMMONIUM LACTATE 12% LOTION 240ML TOP SCH (17:00)
[2020-06-11 17:02] LABS: PLATELET ESTIMATE NORMAL
[2020-06-11] MEDS ORDERED: PROPOFOL 10MG/ML 100ML 100 ML IV PRN (18:45)
[2020-06-11] MEDS: ACETAMINOPHEN 650MG/20.3ML UDC NG PRN (20:45)
[2020-06-12] VITALS (43 sets, daily range): BP systolic 101–141; BP diastolic 41–98
[2020-06-12] MEDS: PROPOFOL 10MG/ML 100ML 100 ML IV PRN ×4 (00:28→19:33)
[2020-06-12] MEDS: IPRATROPIUM/ALBUTEROL 0.5-3(2.5)MG/3ML NEB HHN SCH ×4 (01:30→20:33)
[2020-06-12] MEDS: CEFAZOLIN 2000MG in DEXTROSE 5% WATER 100ML IV SCH ×3 (01:31→17:28)
[2020-06-12] MEDS: FENTANYL CITRATE/PF 2,500 MCG in SODIUM CHLORIDE 0.9% 200 ML IV PRN ×3 (02:44→21:26)
[2020-06-12] MEDS: LACTULOSE 20G/30ML UDC PO SCH ×3 (05:57→21:50)
[2020-06-12] MEDS: FUROSEMIDE 40MG/4ML VIAL IVP SCH (09:00)
[2020-06-12] MEDS: DOCUSATE SODIUM SUGAR FREE 100MG/10ML UDC NG SCH (09:00)
[2020-06-12] MEDS: ACETYLCYSTEINE 100MG/ML 10% VIAL 4ML INH SCH ×2 (09:00→14:41)
[2020-06-12] MEDS: PANTOPRAZOLE SODIUM 40 MG/VIAL IV SCH ×2 (09:00→20:56)
[2020-06-12] MEDS: FOLIC ACID 1MG TABLET PO SCH (09:01)
[2020-06-12] MEDS: THIAMINE HCL 100MG TABLET PO SCH (09:01)
[2020-06-12] MEDS: MULTIVITAMINS,THER W-MINERALS TABLET PO SCH (09:01)
[2020-06-12] MEDS: QUETIAPINE FUMARATE 25MG TABLET PO SCH ×2 (09:03→20:56)
[2020-06-12] MEDS: PROPRANOLOL HCL 10MG TABLET NG SCH ×2 (09:05→20:56)
[2020-06-12 09:06] LABS: BG BASE EXCESS 13.7 mmol/L (-2.0-2.0); BG CARBOXYHEMOGLOBIN 0.8 % (0.5-1.5); BG DEOXYHEMOGLOBIN 1.4 % (0.0-5.0); BG FRACTION INSPIRED OXYGEN 35; BG HCO3 ACT 37.9 mmol/L (22.0-26.0); BG METHEMOGLOBIN 0.3 % (0.0-1.5); BG OXYGEN SATURATION 98.6 % (92.0-98.5); BG OXYHEMOGLOBIN 97.5 % (94.0-97.0); BG PEEP (cmH2O) 0 cmH2O; BG PH 7.524 (7.350-7.450); BG PO2 98.2 mmHg (75.0-100.0); BG SAMPLE SITE RIGHT RADIAL; BG TOTAL HEMOGLOBIN 8.6 g/dL (12.0-18.0); BG TOTAL RESPIRATORY RATE 12 b/min; BG VENT MODE VENT - AC
[2020-06-12] MEDS: AMMONIUM LACTATE 12% LOTION 240ML TOP SCH ×2 (09:07→17:28)
[2020-06-12] MEDS: LEVETIRACETAM 500MG PREMIX 100 ML IV SCH ×2 (10:06→20:56)
[2020-06-12] MEDS: ACETAMINOPHEN 650MG/20.3ML UDC NG PRN (16:00)
[2020-06-12] MEDS: FERROUS SULFATE 300MG/5ML UDC NG SCH (17:31)
[2020-06-12] MEDS ORDERED: FENTANYL CITRATE/PF 2,500 MCG in SODIUM CHLORIDE 0.9% 200 ML IV PRN (20:45)
[2020-06-13] VITALS (58 sets, daily range): BP systolic 98–177; BP diastolic 43–139
[2020-06-13] MEDS ORDERED: PHENYLEPHRINE 100 MG in DEXT 5% WATER 240 ML IV STA (00:23)
[2020-06-13] MEDS: CEFAZOLIN 2000MG in DEXTROSE 5% WATER 100ML IV SCH ×3 (01:44→17:33)
[2020-06-13] MEDS: ACETYLCYSTEINE 100MG/ML 10% VIAL 4ML INH SCH ×2 (01:45→08:56)
[2020-06-13] MEDS: IPRATROPIUM/ALBUTEROL 0.5-3(2.5)MG/3ML NEB HHN SCH ×3 (01:46→14:23)
[2020-06-13] MEDS: PROPOFOL 10MG/ML 100ML 100 ML IV PRN ×3 (01:49→12:19)
[2020-06-13] MEDS: LACTULOSE 20G/30ML UDC PO SCH ×3 (06:15→20:51)
[2020-06-13] MEDS: FENTANYL CITRATE/PF 2,500 MCG in SODIUM CHLORIDE 0.9% 200 ML IV PRN ×2 (06:16→18:22)
[2020-06-13 06:59] LABS: BASOPHILS % 0.6 % (0.0-2.0); EOSINOPHILS % 2.6 % (0.0-5.0); HEMATOCRIT. 22.7 % (42.0-52.0); HEMOGLOBIN. 7.4 g/dL (14.0-18.0); LYMPHOCYTES % 21.4 % (20.0-50.0); MEAN CORPUSCULAR VOLUME 88.9 fL (80.0-94.0); MEAN PLATELET VOLUME 10.3 fl (7.4-10.4); MONOCYTES % 11.3 % (2.0-8.0); NEUTROPHILS % 64.1 % (40.0-76.0); PLATELET 309 x1000/uL (130-400); RED BLOOD CELL COUNT 2.56 mill/uL (4.7-6.1)
[2020-06-13 07:17] LABS: CHLORIDE 100 mEq/L (98-107)
[2020-06-13] MEDS: LEVETIRACETAM 500MG PREMIX 100 ML IV SCH ×2 (09:56→20:51)
[2020-06-13] MEDS: DOCUSATE SODIUM SUGAR FREE 100MG/10ML UDC NG SCH (09:56)
[2020-06-13] MEDS: QUETIAPINE FUMARATE 25MG TABLET PO SCH ×2 (09:57→20:53)
[2020-06-13] MEDS: FOLIC ACID 1MG TABLET PO SCH (09:57)
[2020-06-13] MEDS: PROPRANOLOL HCL 10MG TABLET NG SCH ×2 (09:57→20:52)
[2020-06-13] MEDS: FERROUS SULFATE 300MG/5ML UDC NG SCH ×3 (09:57→17:32)
[2020-06-13] MEDS: PANTOPRAZOLE SODIUM 40 MG/VIAL IV SCH ×2 (09:57→20:52)
[2020-06-13] MEDS: FUROSEMIDE 40MG/4ML VIAL IVP SCH (09:57)
[2020-06-13] MEDS: MULTIVITAMINS,THER W-MINERALS TABLET PO SCH (09:57)
[2020-06-13] MEDS: ACETAMINOPHEN 650MG/20.3ML UDC NG PRN ×2 (09:57→23:21)
[2020-06-13] MEDS: AMMONIUM LACTATE 12% LOTION 240ML TOP SCH ×2 (09:58→17:32)
[2020-06-13] MEDS ORDERED: MAGNESIUM 4 G PREMIX 100 ML IV ONE (13:30)
[2020-06-13] MEDS: MIDAZOLAM HCL 100 MG in DEXT 5% WATER 80 ML IV PRN (16:45)
[2020-06-13] MEDS: METOCLOPRAMIDE HCL 10MG/2ML VIAL IV SCH ×2 (17:33→23:20)
[2020-06-14] VITALS (58 sets, daily range): BP systolic 100–164; BP diastolic 49–103
[2020-06-14] MEDS: CEFAZOLIN 2000MG in DEXTROSE 5% WATER 100ML IV SCH ×3 (01:57→17:52)
[2020-06-14] MEDS: LACTULOSE 20G/30ML UDC PO SCH ×3 (05:36→21:12)
[2020-06-14] MEDS: METOCLOPRAMIDE HCL 10MG/2ML VIAL IV SCH ×3 (05:36→17:52)
[2020-06-14 05:48] LABS: BASOPHILS % 1.2 % (0.0-2.0); EOSINOPHILS % 1.8 % (0.0-5.0); HEMATOCRIT. 25.3 % (42.0-52.0); HEMOGLOBIN. 8.3 g/dL (14.0-18.0); LYMPHOCYTES % 24.6 % (20.0-50.0); MEAN CORPUSCULAR HEMOGLOBIN 29.1 pg (28.0-32.0); MEAN CORPUSCULAR VOLUME 88.1 fL (80.0-94.0); MEAN PLATELET VOLUME 9.9 fl (7.4-10.4); NEUTROPHILS % 61.4 % (40.0-76.0); PLATELET 314 x1000/uL (130-400); RED BLOOD CELL COUNT 2.87 mill/uL (4.7-6.1); RED CELL DISTRIBUTION WIDTH 16.6 % (11.6-14.6)
[2020-06-14 05:57] LABS: CHLORIDE 100 mEq/L (98-107)
[2020-06-14] MEDS: FENTANYL CITRATE/PF 2,500 MCG in SODIUM CHLORIDE 0.9% 200 ML IV PRN ×2 (06:51→21:45)
[2020-06-14] MEDS: MULTIVITAMINS,THER W-MINERALS TABLET PO SCH (08:52)
[2020-06-14] MEDS: FOLIC ACID 1MG TABLET PO SCH (08:52)
[2020-06-14] MEDS: LEVETIRACETAM 500MG PREMIX 100 ML IV SCH (08:52)
[2020-06-14] MEDS: DOCUSATE SODIUM SUGAR FREE 100MG/10ML UDC NG SCH (08:52)
[2020-06-14] MEDS: FUROSEMIDE 40MG/4ML VIAL IVP SCH (08:53)
[2020-06-14] MEDS: PANTOPRAZOLE SODIUM 40 MG/VIAL IV SCH ×2 (08:53→21:12)
[2020-06-14] MEDS: QUETIAPINE FUMARATE 25MG TABLET PO SCH ×2 (08:53→21:13)
[2020-06-14] MEDS: AMMONIUM LACTATE 12% LOTION 240ML TOP SCH ×2 (08:54→17:53)
[2020-06-14] MEDS: FERROUS SULFATE 300MG/5ML UDC NG SCH ×3 (08:54→17:53)
[2020-06-14] MEDS: PROPRANOLOL HCL 10MG TABLET NG SCH ×2 (09:00→21:13)
[2020-06-14] MEDS ORDERED: POTASSIUM CHLORIDE INJ 40 MEQ in DEXT 5% WATER 250 ML IV NR (09:00)
[2020-06-14] MEDS ORDERED: MAGNESIUM 2 G PREMIX 50 ML IV NR (12:00)
[2020-06-14] MEDS: MAGNESIUM OXIDE 400MG TABLET PO SCH (13:53)
[2020-06-14] MEDS: MIDAZOLAM HCL 100 MG in DEXT 5% WATER 80 ML IV PRN (19:03)
[2020-06-15] VITALS (39 sets, daily range): BP systolic 103–169; BP diastolic 46–110
[2020-06-15] MEDS: ACETAMINOPHEN 650MG/20.3ML UDC NG PRN (00:02)
[2020-06-15] MEDS: METOCLOPRAMIDE HCL 10MG/2ML VIAL IV SCH ×4 (00:02→18:19)
[2020-06-15] MEDS: CEFAZOLIN 2000MG in DEXTROSE 5% WATER 100ML IV SCH ×3 (03:21→18:19)
[2020-06-15] MEDS: LACTULOSE 20G/30ML UDC PO SCH ×2 (05:53→18:19)
[2020-06-15 06:01] LABS: BASOPHILS % 0.9 % (0.0-2.0); EOSINOPHILS % 1.6 % (0.0-5.0); HEMATOCRIT. 28.8 % (42.0-52.0); HEMOGLOBIN. 9.5 g/dL (14.0-18.0); LYMPHOCYTES % 23.2 % (20.0-50.0); MEAN CORPUSCULAR HEMOGLOBIN 29.2 pg (28.0-32.0); MEAN CORPUSCULAR VOLUME 88.5 fL (80.0-94.0); MEAN PLATELET VOLUME 9.7 fl (7.4-10.4); NEUTROPHILS % 63.3 % (40.0-76.0); PLATELET 355 x1000/uL (130-400); RED BLOOD CELL COUNT 3.25 mill/uL (4.7-6.1); RED CELL DISTRIBUTION WIDTH 16.9 % (11.6-14.6)
[2020-06-15 06:05] LABS: CHLORIDE 99 mEq/L (98-107)
[2020-06-15] MEDS ORDERED: MAGNESIUM 4 G PREMIX 100 ML IV ONE (08:00)
[2020-06-15] MEDS: MIDAZOLAM HCL 100 MG in DEXT 5% WATER 80 ML IV PRN (08:35)
[2020-06-15] MEDS: FENTANYL CITRATE/PF 2,500 MCG in SODIUM CHLORIDE 0.9% 200 ML IV PRN ×2 (08:36→19:53)
[2020-06-15] MEDS: PANTOPRAZOLE SODIUM 40 MG/VIAL IV SCH ×2 (09:14→21:43)
[2020-06-15] MEDS: FUROSEMIDE 40MG/4ML VIAL IVP SCH (09:14)
[2020-06-15] MEDS: MULTIVITAMINS,THER W-MINERALS TABLET PO SCH (09:16)
[2020-06-15] MEDS: MAGNESIUM OXIDE 400MG TABLET PO SCH (09:17)
[2020-06-15] MEDS: QUETIAPINE FUMARATE 25MG TABLET PO SCH ×2 (09:17→21:41)
[2020-06-15] MEDS: PROPRANOLOL HCL 10MG TABLET NG SCH ×2 (09:17→21:41)
[2020-06-15] MEDS: FOLIC ACID 1MG TABLET PO SCH (09:17)
[2020-06-15] MEDS: FERROUS SULFATE 300MG/5ML UDC NG SCH ×3 (09:21→18:20)
[2020-06-15] MEDS: AMMONIUM LACTATE 12% LOTION 240ML TOP SCH ×2 (09:45→18:20)
[2020-06-16] VITALS (42 sets, daily range): BP systolic 102–145; BP diastolic 39–74
[2020-06-16] MEDS: METOCLOPRAMIDE HCL 10MG/2ML VIAL IV SCH ×5 (00:05→23:16)
[2020-06-16] MEDS: MIDAZOLAM HCL 100 MG in DEXT 5% WATER 80 ML IV PRN ×3 (00:06→22:00)
[2020-06-16] MEDS: CEFAZOLIN 2000MG in DEXTROSE 5% WATER 100ML IV SCH ×3 (02:33→17:36)
[2020-06-16] MEDS: FENTANYL CITRATE/PF 2,500 MCG in SODIUM CHLORIDE 0.9% 200 ML IV PRN ×2 (06:52→18:49)
[2020-06-16 07:32] LABS: BASOPHILS % 0.7 % (0.0-2.0); EOSINOPHILS % 1.9 % (0.0-5.0); HEMATOCRIT. 25.2 % (42.0-52.0); HEMOGLOBIN. 8.1 g/dL (14.0-18.0); LYMPHOCYTES % 25.7 % (20.0-50.0); MEAN CORPUSCULAR HEMOGLOBIN 28.5 pg (28.0-32.0); MEAN CORPUSCULAR VOLUME 88.4 fL (80.0-94.0); MEAN PLATELET VOLUME 9.5 fl (7.4-10.4); MONOCYTES % 9.6 % (2.0-8.0); NEUTROPHILS % 62.1 % (40.0-76.0); PLATELET 320 x1000/uL (130-400); RED BLOOD CELL COUNT 2.85 mill/uL (4.7-6.1); RED CELL DISTRIBUTION WIDTH 16.5 % (11.6-14.6)
[2020-06-16 07:34] LABS: CHLORIDE 99 mEq/L (98-107)
[2020-06-16] MEDS: FERROUS SULFATE 300MG/5ML UDC NG SCH ×3 (08:00→17:37)
[2020-06-16] MEDS: QUETIAPINE FUMARATE 25MG TABLET PO SCH ×2 (09:00→21:25)
[2020-06-16] MEDS: MAGNESIUM OXIDE 400MG TABLET PO SCH (09:00)
[2020-06-16] MEDS: LACTULOSE 20G/30ML UDC PO SCH ×2 (09:00→17:00)
[2020-06-16] MEDS: PROPRANOLOL HCL 10MG TABLET NG SCH ×2 (09:00→21:25)
[2020-06-16] MEDS: FUROSEMIDE 40MG/4ML VIAL IVP SCH ×2 (10:23→10:27)
[2020-06-16] MEDS: AMMONIUM LACTATE 12% LOTION 240ML TOP SCH ×2 (10:28→17:00)
[2020-06-16] MEDS: PANTOPRAZOLE SODIUM 40 MG/VIAL IV SCH ×2 (11:03→21:24)
[2020-06-16] MEDS ORDERED: ROCURONIUM BROMIDE 10MG/ML VIAL 5ML IV ONE ×2 (17:33→17:50)
[2020-06-16] MEDS ORDERED: FLUMAZENIL 0.1 MG/ML 5ML VIAL IV ONE (18:02)
[2020-06-17] VITALS (40 sets, daily range): BP systolic 90–144; BP diastolic 37–97
[2020-06-17] MEDS: CEFAZOLIN 2000MG in DEXTROSE 5% WATER 100ML IV SCH ×3 (02:05→17:49)
[2020-06-17] MEDS: FENTANYL CITRATE/PF 2,500 MCG in SODIUM CHLORIDE 0.9% 200 ML IV PRN ×2 (02:58→16:39)
[2020-06-17] MEDS: METOCLOPRAMIDE HCL 10MG/2ML VIAL IV SCH ×3 (05:42→17:49)
[2020-06-17] MEDS: QUETIAPINE FUMARATE 25MG TABLET PO SCH ×2 (08:58→20:34)
[2020-06-17] MEDS: ACETAMINOPHEN 650MG/20.3ML UDC NG PRN ×2 (08:58→21:30)
[2020-06-17] MEDS: MAGNESIUM OXIDE 400MG TABLET PO SCH (08:58)
[2020-06-17] MEDS: LACTULOSE 20G/30ML UDC PO SCH ×2 (08:58→17:49)
[2020-06-17] MEDS: PANTOPRAZOLE SODIUM 40 MG/VIAL IV SCH ×2 (08:58→20:34)
[2020-06-17] MEDS: PROPRANOLOL HCL 10MG TABLET NG SCH ×2 (08:58→20:35)
[2020-06-17] MEDS: FERROUS SULFATE 300MG/5ML UDC NG SCH ×3 (08:58→17:49)
[2020-06-17] MEDS: MIDAZOLAM HCL 100 MG in DEXT 5% WATER 80 ML IV PRN ×2 (08:59→21:34)
[2020-06-17] MEDS: AMMONIUM LACTATE 12% LOTION 240ML TOP SCH ×2 (08:59→17:49)
[2020-06-17 10:27] LABS: BASOPHILS % 0.7 % (0.0-2.0); EOSINOPHILS % 0.9 % (0.0-5.0); HEMATOCRIT. 24.6 % (42.0-52.0); HEMOGLOBIN. 8.2 g/dL (14.0-18.0); LYMPHOCYTES % 20.7 % (20.0-50.0); MEAN CORPUSCULAR HEMOGLOBIN 29.3 pg (28.0-32.0); MEAN CORPUSCULAR VOLUME 87.4 fL (80.0-94.0); MEAN PLATELET VOLUME 9.3 fl (7.4-10.4); MONOCYTES % 10.3 % (2.0-8.0); NEUTROPHILS % 67.4 % (40.0-76.0); PLATELET 302 x1000/uL (130-400); RED BLOOD CELL COUNT 2.82 mill/uL (4.7-6.1)
[2020-06-17 10:34] LABS: CHLORIDE 98 mEq/L (98-107)
[2020-06-18] VITALS (64 sets, daily range): BP systolic 94–151; BP diastolic 35–82
[2020-06-18] MEDS: METOCLOPRAMIDE HCL 10MG/2ML VIAL IV SCH ×4 (01:48→17:31)
[2020-06-18] MEDS: ACETAMINOPHEN 650MG/20.3ML UDC NG PRN ×3 (01:49→21:00)
[2020-06-18] MEDS: CEFAZOLIN 2000MG in DEXTROSE 5% WATER 100ML IV SCH ×3 (03:03→17:31)
[2020-06-18] MEDS: FENTANYL CITRATE/PF 2,500 MCG in SODIUM CHLORIDE 0.9% 200 ML IV PRN ×3 (03:09→20:05)
[2020-06-18] MEDS: MIDAZOLAM HCL 100 MG in DEXT 5% WATER 80 ML IV PRN ×2 (06:49→16:26)
[2020-06-18] MEDS: FERROUS SULFATE 300MG/5ML UDC NG SCH ×3 (08:00→17:31)
[2020-06-18 08:01] LABS: BASOPHILS % 0.8 % (0.0-2.0); EOSINOPHILS % 1.3 % (0.0-5.0); HEMATOCRIT. 26.4 % (42.0-52.0); HEMOGLOBIN. 8.8 g/dL (14.0-18.0); LYMPHOCYTES % 18.2 % (20.0-50.0); MEAN CORPUSCULAR HEMOGLOBIN 29.5 pg (28.0-32.0); MEAN CORPUSCULAR VOLUME 88.5 fL (80.0-94.0); MEAN PLATELET VOLUME 9.4 fl (7.4-10.4); MONOCYTES % 9.1 % (2.0-8.0); NEUTROPHILS % 70.6 % (40.0-76.0); PLATELET 322 x1000/uL (130-400); RED BLOOD CELL COUNT 2.98 mill/uL (4.7-6.1); RED CELL DISTRIBUTION WIDTH 17.3 % (11.6-14.6)
[2020-06-18 08:03] LABS: CHLORIDE 96 mEq/L (98-107)
[2020-06-18] MEDS: QUETIAPINE FUMARATE 25MG TABLET PO SCH ×2 (09:00→21:00)
[2020-06-18] MEDS: LACTULOSE 20G/30ML UDC PO SCH ×2 (09:00→17:20)
[2020-06-18] MEDS: PROPRANOLOL HCL 10MG TABLET NG SCH ×2 (09:00→21:00)
[2020-06-18] MEDS: MAGNESIUM OXIDE 400MG TABLET PO SCH (09:00)
[2020-06-18] MEDS: AMMONIUM LACTATE 12% LOTION 240ML TOP SCH ×2 (09:43→17:20)
[2020-06-18] MEDS: FUROSEMIDE 40MG/4ML VIAL IVP SCH (09:43)
[2020-06-18] MEDS: PANTOPRAZOLE SODIUM 40 MG/VIAL IV SCH ×2 (09:43→20:59)
[2020-06-18 10:47] LABS: BG BASE EXCESS 7.8 mmol/L (-2.0-2.0); BG CARBOXYHEMOGLOBIN 0.3 % (0.5-1.5); BG DEOXYHEMOGLOBIN 7.3 % (0.0-5.0); BG FRACTION INSPIRED OXYGEN 35; BG HCO3 ACT 33.2 mmol/L (22.0-26.0); BG METHEMOGLOBIN 0.4 % (0.0-1.5); BG OXYGEN SATURATION 92.6 % (92.0-98.5); BG PCO2 51.1 mmHg (35.0-45.0); BG PO2 68.4 mmHg (75.0-100.0); BG SAMPLE SITE RIGHT RADIAL; BG TOTAL HEMOGLOBIN 9.4 g/dL (12.0-18.0); BG VENT MODE VENT - AC
[2020-06-18] MEDS ORDERED: MIDAZOLAM HCL 5 MG/5 ML VIAL ONE (11:33)
[2020-06-18] MEDS ORDERED: FENTANYL CITRATE/PF 50MCG/ML 2ML VIAL ONE (11:33)
[2020-06-19] VITALS (37 sets, daily range): BP systolic 94–134; BP diastolic 43–68
[2020-06-19] MEDS: METOCLOPRAMIDE HCL 10MG/2ML VIAL IV SCH ×5 (01:02→23:50)
[2020-06-19] MEDS: CEFAZOLIN 2000MG in DEXTROSE 5% WATER 100ML IV SCH ×3 (01:02→18:05)
[2020-06-19] MEDS: MIDAZOLAM HCL 100 MG in DEXT 5% WATER 80 ML IV PRN ×2 (03:54→14:37)
[2020-06-19] MEDS: FENTANYL CITRATE/PF 2,500 MCG in SODIUM CHLORIDE 0.9% 200 ML IV PRN ×2 (04:28→14:39)
[2020-06-19 06:43] LABS: BASOPHILS % 0.9 % (0.0-2.0); EOSINOPHILS % 1.9 % (0.0-5.0); HEMATOCRIT. 25.5 % (42.0-52.0); HEMOGLOBIN. 8.3 g/dL (14.0-18.0); LYMPHOCYTES % 20.4 % (20.0-50.0); MEAN CORPUSCULAR HEMOGLOBIN 29.1 pg (28.0-32.0); MEAN CORPUSCULAR VOLUME 89.5 fL (80.0-94.0); MEAN PLATELET VOLUME 9.5 fl (7.4-10.4); MONOCYTES % 10.6 % (2.0-8.0); NEUTROPHILS % 66.2 % (40.0-76.0); PLATELET 333 x1000/uL (130-400); RED BLOOD CELL COUNT 2.85 mill/uL (4.7-6.1); RED CELL DISTRIBUTION WIDTH 17.2 % (11.6-14.6)
[2020-06-19 06:47] LABS: CHLORIDE 96 mEq/L (98-107)
[2020-06-19] MEDS: PROPRANOLOL HCL 10MG TABLET NG SCH ×2 (09:00→21:00)
[2020-06-19] MEDS: QUETIAPINE FUMARATE 25MG TABLET PO SCH ×2 (09:50→20:57)
[2020-06-19] MEDS: FERROUS SULFATE 300MG/5ML UDC NG SCH ×3 (09:50→18:05)
[2020-06-19] MEDS: LACTULOSE 20G/30ML UDC PO SCH ×2 (09:50→18:05)
[2020-06-19] MEDS: MAGNESIUM OXIDE 400MG TABLET PO SCH (09:50)
[2020-06-19] MEDS: FUROSEMIDE 40MG/4ML VIAL IVP SCH (09:52)
[2020-06-19] MEDS: AMMONIUM LACTATE 12% LOTION 240ML TOP SCH ×2 (09:56→17:00)
[2020-06-19 11:09] LABS: BG BASE EXCESS 9.8 mmol/L (-2.0-2.0); BG CARBOXYHEMOGLOBIN 0.6 % (0.5-1.5); BG DEOXYHEMOGLOBIN 6.1 % (0.0-5.0); BG FRACTION INSPIRED OXYGEN 35; BG METHEMOGLOBIN 0.1 % (0.0-1.5); BG OXYGEN SATURATION 93.9 % (92.0-98.5); BG OXYHEMOGLOBIN 93.2 % (94.0-97.0); BG PCO2 51.7 mmHg (35.0-45.0); BG PEEP (cmH2O) 0 cmH2O; BG PH 7.449 (7.350-7.450); BG PO2 68.6 mmHg (75.0-100.0); BG SAMPLE SITE RIGHT RADIAL; BG TOTAL HEMOGLOBIN 9.6 g/dL (12.0-18.0); BG TOTAL RESPIRATORY RATE 22 b/min; BG VENT MODE VENT - AC
[2020-06-19] MEDS: PANTOPRAZOLE SODIUM 40 MG/VIAL IV SCH ×2 (13:37→20:57)
[2020-06-19] MEDS: LORAZEPAM 2MG/ML CPJ IV PRN (14:41)
[2020-06-19] MEDS: MORPHINE SULFATE 2 MG/ML CPJ (NOT FOR IM USE) IV PRN (14:43)
[2020-06-19] MEDS: ACETAMINOPHEN 650MG/20.3ML UDC NG PRN ×2 (15:53→20:57)
[2020-06-19] MEDS ORDERED: VANCOMYCIN 1 G PREMIX 200 ML IV NR (18:00)
[2020-06-19] MEDS: CEFEPIME 2,000 MG in DEXT 5% WATER 100 ML IV SCH (20:57)
[2020-06-19 21:51] LABS: BASOPHILS % 0.5 % (0.0-2.0); EOSINOPHILS % 1.1 % (0.0-5.0); HEMATOCRIT. 24.9 % (42.0-52.0); HEMOGLOBIN. 8.3 g/dL (14.0-18.0); LYMPHOCYTES % 21.8 % (20.0-50.0); MEAN CORPUSCULAR HEMOGLOBIN 29.3 pg (28.0-32.0); MEAN CORPUSCULAR VOLUME 87.7 fL (80.0-94.0); MEAN PLATELET VOLUME 9.4 fl (7.4-10.4); MONOCYTES % 10.9 % (2.0-8.0); NEUTROPHILS % 65.7 % (40.0-76.0); PLATELET 321 x1000/uL (130-400); RED BLOOD CELL COUNT 2.83 mill/uL (4.7-6.1); RED CELL DISTRIBUTION WIDTH 17.3 % (11.6-14.6)
[2020-06-19 22:12] LABS: CHLORIDE 98 mEq/L (98-107)
[2020-06-20] VITALS (44 sets, daily range): BP systolic 98–150; BP diastolic 41–91
[2020-06-20] MEDS: FENTANYL CITRATE/PF 2,500 MCG in SODIUM CHLORIDE 0.9% 200 ML IV PRN ×2 (03:57→18:47)
[2020-06-20] MEDS: METOCLOPRAMIDE HCL 10MG/2ML VIAL IV SCH ×4 (05:34→23:58)
[2020-06-20 06:14] LABS: BASOPHILS % 0.7 % (0.0-2.0); EOSINOPHILS % 1.9 % (0.0-5.0); HEMATOCRIT. 24.9 % (42.0-52.0); HEMOGLOBIN. 8.4 g/dL (14.0-18.0); LYMPHOCYTES % 24.3 % (20.0-50.0); MEAN CORPUSCULAR HEMOGLOBIN 29.6 pg (28.0-32.0); MEAN CORPUSCULAR VOLUME 88.2 fL (80.0-94.0); MEAN PLATELET VOLUME 9.4 fl (7.4-10.4); NEUTROPHILS % 62.1 % (40.0-76.0); PLATELET 323 x1000/uL (130-400); RED BLOOD CELL COUNT 2.83 mill/uL (4.7-6.1); RED CELL DISTRIBUTION WIDTH 17.3 % (11.6-14.6)
[2020-06-20 06:31] LABS: CHLORIDE 96 mEq/L (98-107)
[2020-06-20] MEDS ORDERED: SKIN ADHESIVE 0.7 GM EA TOP ONE (06:57)
[2020-06-20] MEDS ORDERED: LIDOCAINE HCL 1% 20ML VIAL (Pyxis) INJ ONE (06:57)
[2020-06-20] MEDS ORDERED: BUPIVACAINE HCL/PF 0.5% (5MG/ML) 10ML ONE (07:00)
[2020-06-20] MEDS ORDERED: BACITRACIN 50,000 UNITS/VIAL ONE (07:01)
[2020-06-20] MEDS ORDERED: ROCURONIUM BROMIDE 10MG/ML VIAL 5ML IV ONE ×2 (07:53→08:01)
[2020-06-20] MEDS ORDERED: MIDAZOLAM HCL 2 MG/2 ML VIAL ONE (07:53)
[2020-06-20] MEDS: FERROUS SULFATE 300MG/5ML UDC NG SCH ×3 (09:52→17:48)
[2020-06-20] MEDS: QUETIAPINE FUMARATE 25MG TABLET PO SCH ×2 (09:52→21:35)
[2020-06-20] MEDS: FUROSEMIDE 40MG/4ML VIAL IVP SCH (09:52)
[2020-06-20] MEDS: PROPRANOLOL HCL 10MG TABLET NG SCH ×2 (09:52→23:58)
[2020-06-20] MEDS: LACTULOSE 20G/30ML UDC PO SCH ×2 (09:52→17:48)
[2020-06-20] MEDS: MAGNESIUM OXIDE 400MG TABLET PO SCH (09:52)
[2020-06-20] MEDS: AMMONIUM LACTATE 12% LOTION 240ML TOP SCH ×2 (09:53→17:50)
[2020-06-20] MEDS: CEFEPIME 2,000 MG in DEXT 5% WATER 100 ML IV SCH ×2 (09:54→21:35)
[2020-06-20] MEDS: PANTOPRAZOLE SODIUM 40 MG/VIAL IV SCH ×2 (09:55→21:35)
[2020-06-20] MEDS: ACETAMINOPHEN 650MG/20.3ML UDC NG PRN (12:40)
[2020-06-20 13:25] LABS: BG BASE EXCESS 10.3 mmol/L (-2.0-2.0); BG CARBOXYHEMOGLOBIN 0.3 % (0.5-1.5); BG DEOXYHEMOGLOBIN 2.1 % (0.0-5.0); BG FRACTION INSPIRED OXYGEN 45; BG HCO3 ACT 33.8 mmol/L (22.0-26.0); BG METHEMOGLOBIN 0.4 % (0.0-1.5); BG OXYGEN SATURATION 97.9 % (92.0-98.5); BG OXYHEMOGLOBIN 97.2 % (94.0-97.0); BG PCO2 40.9 mmHg (35.0-45.0); BG PEEP (cmH2O) 0 cmH2O; BG PH 7.535 (7.350-7.450); BG PO2 105.3 mmHg (75.0-100.0); BG SAMPLE SITE RIGHT RADIAL; BG TOTAL HEMOGLOBIN 9.7 g/dL (12.0-18.0); BG TOTAL RESPIRATORY RATE 22 b/min; BG VENT MODE VENT - AC
[2020-06-20] MEDS: HYDROMORPHONE HCL/PF 2MG/ML CPJ IV SCH ×2 (17:49→23:58)
[2020-06-21] VITALS (51 sets, daily range): BP systolic 89–159; BP diastolic 39–105
[2020-06-21] MEDS: MIDAZOLAM HCL 100 MG in DEXT 5% WATER 80 ML IV PRN (03:32)
[2020-06-21] MEDS: FENTANYL CITRATE/PF 2,500 MCG in SODIUM CHLORIDE 0.9% 200 ML IV PRN ×2 (04:56→17:59)
[2020-06-21] MEDS: METOCLOPRAMIDE HCL 10MG/2ML VIAL IV SCH ×4 (05:20→23:34)
[2020-06-21] MEDS: HYDROMORPHONE HCL/PF 2MG/ML CPJ IV SCH ×3 (05:20→23:35)
[2020-06-21 06:17] LABS: CHLORIDE 96 mEq/L (98-107)
[2020-06-21 06:29] LABS: BASOPHILS % 0.6 % (0.0-2.0); EOSINOPHILS % 1.1 % (0.0-5.0); HEMATOCRIT. 25.5 % (42.0-52.0); HEMOGLOBIN. 8.2 g/dL (14.0-18.0); LYMPHOCYTES % 19.2 % (20.0-50.0); MEAN CORPUSCULAR HEMOGLOBIN 28.6 pg (28.0-32.0); MEAN CORPUSCULAR VOLUME 89.1 fL (80.0-94.0); MEAN PLATELET VOLUME 9.5 fl (7.4-10.4); MONOCYTES % 12.1 % (2.0-8.0); PLATELET 397 x1000/uL (130-400); RED BLOOD CELL COUNT 2.86 mill/uL (4.7-6.1); RED CELL DISTRIBUTION WIDTH 17.4 % (11.6-14.6)
[2020-06-21 06:53] LABS: BG BASE EXCESS 8.3 mmol/L (-2.0-2.0); BG CARBOXYHEMOGLOBIN 0.8 % (0.5-1.5); BG DEOXYHEMOGLOBIN 0.9 % (0.0-5.0); BG FRACTION INSPIRED OXYGEN 40; BG HCO3 ACT 32.6 mmol/L (22.0-26.0); BG METHEMOGLOBIN 0.4 % (0.0-1.5); BG OXYGEN SATURATION 99.1 % (92.0-98.5); BG OXYHEMOGLOBIN 97.9 % (94.0-97.0); BG PCO2 44.9 mmHg (35.0-45.0); BG PEEP (cmH2O) 0 cmH2O; BG PH 7.479 (7.350-7.450); BG PO2 126.6 mmHg (75.0-100.0); BG SAMPLE SITE RIGHT RADIAL; BG TOTAL HEMOGLOBIN 8.6 g/dL (12.0-18.0); BG TOTAL RESPIRATORY RATE 16 b/min; BG VENT MODE VENT - AC
[2020-06-21] MEDS: CEFEPIME 2,000 MG in DEXT 5% WATER 100 ML IV SCH ×2 (09:00→23:34)
[2020-06-21] MEDS: LACTULOSE 20G/30ML UDC PO SCH ×2 (09:03→17:10)
[2020-06-21] MEDS: FERROUS SULFATE 300MG/5ML UDC NG SCH ×3 (09:03→17:10)
[2020-06-21] MEDS: PROPRANOLOL HCL 10MG TABLET NG SCH ×2 (09:04→20:47)
[2020-06-21] MEDS: QUETIAPINE FUMARATE 25MG TABLET PO SCH ×2 (09:04→20:46)
[2020-06-21] MEDS: PANTOPRAZOLE SODIUM 40 MG/VIAL IV SCH ×2 (09:04→20:46)
[2020-06-21] MEDS: FUROSEMIDE 40MG/4ML VIAL IVP SCH (09:04)
[2020-06-21] MEDS: MAGNESIUM OXIDE 400MG TABLET PO SCH (09:04)
[2020-06-21] MEDS: AMMONIUM LACTATE 12% LOTION 240ML TOP SCH ×2 (09:05→17:10)
[2020-06-21] MEDS: ACETAMINOPHEN 650MG/20.3ML UDC NG PRN (09:05)
[2020-06-21] MEDS ORDERED: POTASSIUM CHLORIDE 20MEQ TABLET SR PO SCH (13:00)
[2020-06-21] MEDS: LORAZEPAM 2MG/ML CPJ IV PRN (17:00)
[2020-06-21] MEDS ORDERED: LORAZEPAM 2MG/ML CPJ IV PRN (21:00)
[2020-06-22] VITALS (90 sets, daily range): BP systolic 90–178; BP diastolic 42–141
[2020-06-22] MEDS: ACETAMINOPHEN 650MG/20.3ML UDC NG PRN ×2 (01:02→15:51)
[2020-06-22] MEDS: METOCLOPRAMIDE HCL 10MG/2ML VIAL IV SCH ×4 (05:50→23:57)
[2020-06-22] MEDS: HYDROMORPHONE HCL/PF 2MG/ML CPJ IV SCH (05:51)
[2020-06-22] MEDS: MORPHINE SULFATE 2 MG/ML CPJ (NOT FOR IM USE) IV PRN (07:43)
[2020-06-22] MEDS: FENTANYL CITRATE/PF 2,500 MCG in SODIUM CHLORIDE 0.9% 200 ML IV PRN (07:55)
[2020-06-22] MEDS: MAGNESIUM OXIDE 400MG TABLET PO SCH (08:40)
[2020-06-22] MEDS: FERROUS SULFATE 300MG/5ML UDC NG SCH ×3 (08:40→17:29)
[2020-06-22] MEDS: FUROSEMIDE 40MG/4ML VIAL IVP SCH (08:40)
[2020-06-22] MEDS: LACTULOSE 20G/30ML UDC PO SCH ×2 (08:40→17:29)
[2020-06-22] MEDS: PANTOPRAZOLE SODIUM 40 MG/VIAL IV SCH ×2 (08:40→21:12)
[2020-06-22] MEDS: MIDAZOLAM HCL 100 MG in DEXT 5% WATER 80 ML IV PRN (08:42)
[2020-06-22] MEDS: AMMONIUM LACTATE 12% LOTION 240ML TOP SCH ×2 (08:43→17:30)
[2020-06-22] MEDS: QUETIAPINE FUMARATE 25MG TABLET PO SCH ×2 (08:43→21:11)
[2020-06-22] MEDS: PROPRANOLOL HCL 10MG TABLET NG SCH ×2 (08:49→21:12)
[2020-06-22] MEDS: CEFEPIME 2,000 MG in DEXT 5% WATER 100 ML IV SCH ×2 (09:00→22:05)
[2020-06-22] MEDS ORDERED: MORPHINE SULFATE 4 MG/ML CPJ (NOT FOR IM USE) IV PRN (15:00)
[2020-06-22 18:07] LABS: HEMATOCRIT 26.5 % (42.0-52.0); HEMOGLOBIN 8.6 g/dL (14.0-18.0); MEAN CORPUSCULAR HEMOGLOBIN 28.9 pg (28.0-32.0); MEAN CORPUSCULAR VOLUME 89.2 fL (80.0-94.0); PLATELET 445 x1000/uL (130-400); RED BLOOD CELL COUNT 2.97 mill/uL (4.7-6.1)
[2020-06-22 18:15] LABS: CHLORIDE 97 mEq/L (98-107)
[2020-06-22 18:17] LABS: INR 1.4; PROTHROMBIN TIME 14.1 sec (9.6-11.0)
[2020-06-23] VITALS (94 sets, daily range): BP systolic 87–147; BP diastolic 37–99
[2020-06-23] MEDS: ACETAMINOPHEN 650MG/20.3ML UDC NG PRN ×2 (00:19→12:05)
[2020-06-23] MEDS: FENTANYL CITRATE/PF 2,500 MCG in SODIUM CHLORIDE 0.9% 200 ML IV PRN ×2 (02:23→14:57)
[2020-06-23] MEDS: METOCLOPRAMIDE HCL 10MG/2ML VIAL IV SCH ×3 (05:11→17:49)
[2020-06-23 05:47] LABS: CHLORIDE 100 mEq/L (98-107)
[2020-06-23 05:56] LABS: BASOPHILS % 0.7 % (0.0-2.0); EOSINOPHILS % 2.1 % (0.0-5.0); HEMOGLOBIN. 8.5 g/dL (14.0-18.0); LYMPHOCYTES % 23.5 % (20.0-50.0); MEAN CORPUSCULAR HEMOGLOBIN 29.1 pg (28.0-32.0); MEAN CORPUSCULAR VOLUME 89.1 fL (80.0-94.0); MEAN PLATELET VOLUME 9.2 fl (7.4-10.4); MONOCYTES % 8.9 % (2.0-8.0); NEUTROPHILS % 64.8 % (40.0-76.0); PLATELET 441 x1000/uL (130-400); RED BLOOD CELL COUNT 2.92 mill/uL (4.7-6.1); RED CELL DISTRIBUTION WIDTH 16.5 % (11.6-14.6)
[2020-06-23] MEDS: MIDAZOLAM HCL 100 MG in DEXT 5% WATER 80 ML IV PRN (08:05)
[2020-06-23] MEDS: MAGNESIUM OXIDE 400MG TABLET PO SCH (08:06)
[2020-06-23] MEDS: QUETIAPINE FUMARATE 25MG TABLET PO SCH ×2 (08:06→21:27)
[2020-06-23] MEDS: PROPRANOLOL HCL 10MG TABLET NG SCH ×2 (08:06→21:27)
[2020-06-23] MEDS: FERROUS SULFATE 300MG/5ML UDC NG SCH ×3 (08:06→17:49)
[2020-06-23] MEDS: AMMONIUM LACTATE 12% LOTION 240ML TOP SCH ×2 (08:06→17:49)
[2020-06-23] MEDS: PANTOPRAZOLE SODIUM 40 MG/VIAL IV SCH ×2 (08:06→21:27)
[2020-06-23] MEDS: LACTULOSE 20G/30ML UDC PO SCH ×2 (08:17→17:49)
[2020-06-23] MEDS: FUROSEMIDE 40MG/4ML VIAL IVP SCH (08:18)
[2020-06-23] MEDS: CEFEPIME 2,000 MG in DEXT 5% WATER 100 ML IV SCH ×2 (10:38→21:27)
[2020-06-23] MEDS ORDERED: FENTANYL CITRATE/PF 2,500 MCG in SODIUM CHLORIDE 0.9% 200 ML IV PRN (12:00)
[2020-06-24] VITALS (95 sets, daily range): BP systolic 93–181; BP diastolic 35–116
[2020-06-24] MEDS: METOCLOPRAMIDE HCL 10MG/2ML VIAL IV SCH ×5 (00:15→23:40)
[2020-06-24] MEDS: ACETAMINOPHEN 650MG/20.3ML UDC NG PRN (05:03)
[2020-06-24] MEDS: MIDAZOLAM HCL 100 MG in DEXT 5% WATER 80 ML IV PRN ×2 (05:33→18:53)
[2020-06-24] MEDS: FENTANYL CITRATE/PF 2,500 MCG in SODIUM CHLORIDE 0.9% 200 ML IV PRN ×2 (07:03→18:55)
[2020-06-24] MEDS: AMMONIUM LACTATE 12% LOTION 240ML TOP SCH ×2 (08:51→17:00)
[2020-06-24] MEDS: FERROUS SULFATE 300MG/5ML UDC NG SCH ×3 (08:51→18:54)
[2020-06-24] MEDS: LACTULOSE 20G/30ML UDC PO SCH ×2 (08:51→17:00)
[2020-06-24] MEDS: PANTOPRAZOLE SODIUM 40 MG/VIAL IV SCH ×2 (08:51→20:28)
[2020-06-24] MEDS: MAGNESIUM OXIDE 400MG TABLET PO SCH (08:51)
[2020-06-24] MEDS: PROPRANOLOL HCL 10MG TABLET NG SCH ×2 (08:52→20:38)
[2020-06-24] MEDS: QUETIAPINE FUMARATE 25MG TABLET PO SCH ×2 (08:52→20:28)
[2020-06-24] MEDS: CEFEPIME 2,000 MG in DEXT 5% WATER 100 ML IV SCH ×2 (08:59→20:28)
[2020-06-25] VITALS (97 sets, daily range): BP systolic 82–179; BP diastolic 31–100
[2020-06-25] MEDS: NAFCILLIN SODIUM 2,000 MG in SODIUM CHLORIDE 0.9% 100 ML IV SCH ×6 (02:07→20:26)
[2020-06-25] MEDS: ACETAMINOPHEN 650MG/20.3ML UDC NG PRN (04:03)
[2020-06-25] MEDS: METOCLOPRAMIDE HCL 10MG/2ML VIAL IV SCH ×3 (05:23→17:26)
[2020-06-25] MEDS: FENTANYL CITRATE/PF 2,500 MCG in SODIUM CHLORIDE 0.9% 200 ML IV PRN ×2 (05:44→21:49)
[2020-06-25] MEDS: LACTULOSE 20G/30ML UDC PO SCH ×2 (08:36→17:26)
[2020-06-25] MEDS: AMMONIUM LACTATE 12% LOTION 240ML TOP SCH ×2 (08:37→17:26)
[2020-06-25] MEDS: PANTOPRAZOLE SODIUM 40 MG/VIAL IV SCH ×2 (08:37→20:26)
[2020-06-25] MEDS: FERROUS SULFATE 300MG/5ML UDC NG SCH ×3 (08:37→17:26)
[2020-06-25] MEDS: MAGNESIUM OXIDE 400MG TABLET PO SCH (08:37)
[2020-06-25] MEDS: QUETIAPINE FUMARATE 25MG TABLET PO SCH (08:39)
[2020-06-25] MEDS: PROPRANOLOL HCL 10MG TABLET NG SCH ×2 (08:40→20:26)
[2020-06-25] MEDS: MIDAZOLAM HCL 100 MG in DEXT 5% WATER 80 ML IV PRN ×2 (08:41→17:47)
[2020-06-25] MEDS ORDERED: PHENYLEPHRINE 50 MG in DEXT 5% WATER 245 ML IV PRN (09:00)
[2020-06-25] MEDS ORDERED: SODIUM CHLORIDE 0.9% 500 ML IV SCH (09:00)
[2020-06-25] MEDS: RACEPINEPHRINE 2.25% 0.5ML NEB VIAL HHN PRN (13:19)
[2020-06-25 18:05] LABS: CHLORIDE 99 mEq/L (98-107)
[2020-06-25] MEDS: QUETIAPINE FUMARATE 50MG TABLET PO SCH (20:26)
[2020-06-25 21:07] LABS: BASOPHILS % 0.9 % (0.0-2.0); EOSINOPHILS % 3.8 % (0.0-5.0); HEMATOCRIT. 22.4 % (42.0-52.0); HEMOGLOBIN. 7.2 g/dL (14.0-18.0); LYMPHOCYTES % 27.1 % (20.0-50.0); MEAN CORPUSCULAR HEMOGLOBIN 28.5 pg (28.0-32.0); MEAN CORPUSCULAR VOLUME 88.6 fL (80.0-94.0); MEAN PLATELET VOLUME 9.3 fl (7.4-10.4); MONOCYTES % 9.8 % (2.0-8.0); NEUTROPHILS % 58.4 % (40.0-76.0); PLATELET 358 x1000/uL (130-400); RED BLOOD CELL COUNT 2.53 mill/uL (4.7-6.1); RED CELL DISTRIBUTION WIDTH 16.4 % (11.6-14.6)
[2020-06-26] VITALS (91 sets, daily range): BP systolic 107–198; BP diastolic 35–147
[2020-06-26] MEDS: METOCLOPRAMIDE HCL 10MG/2ML VIAL IV SCH ×4 (00:24→17:12)
[2020-06-26] MEDS: NAFCILLIN SODIUM 2,000 MG in SODIUM CHLORIDE 0.9% 100 ML IV SCH ×6 (00:43→21:26)
[2020-06-26] MEDS: RACEPINEPHRINE 2.25% 0.5ML NEB VIAL HHN PRN ×3 (03:09→09:38)
[2020-06-26] MEDS: ACETAMINOPHEN 650MG/20.3ML UDC NG PRN ×2 (05:01→09:19)
[2020-06-26] MEDS: MIDAZOLAM HCL 100 MG in DEXT 5% WATER 80 ML IV PRN ×3 (05:17→18:07)
[2020-06-26 06:24] LABS: BASOPHILS % 0.9 % (0.0-2.0); EOSINOPHILS % 3.5 % (0.0-5.0); HEMATOCRIT. 23.9 % (42.0-52.0); HEMOGLOBIN. 7.9 g/dL (14.0-18.0); LYMPHOCYTES % 22.4 % (20.0-50.0); MEAN CORPUSCULAR HEMOGLOBIN 29.4 pg (28.0-32.0); MEAN CORPUSCULAR VOLUME 88.6 fL (80.0-94.0); MEAN PLATELET VOLUME 9.3 fl (7.4-10.4); MONOCYTES % 7.8 % (2.0-8.0); NEUTROPHILS % 65.4 % (40.0-76.0); PLATELET 383 x1000/uL (130-400); RED CELL DISTRIBUTION WIDTH 16.4 % (11.6-14.6)
[2020-06-26 06:41] LABS: CHLORIDE 102 mEq/L (98-107)
[2020-06-26] MEDS ORDERED: SODIUM BICARBONATE 4% (2.4MEQ) 5ML VIAL IV ONE (07:55)
[2020-06-26] MEDS ORDERED: LIDOCAINE HCL 1% 20ML VIAL (Pyxis) INJ ONE (07:56)
[2020-06-26 09:05] LABS: BG BASE EXCESS 7.4 mmol/L (-2.0-2.0); BG CARBOXYHEMOGLOBIN 0.1 % (0.5-1.5); BG DEOXYHEMOGLOBIN 9.3 % (0.0-5.0); BG FRACTION INSPIRED OXYGEN 40; BG HCO3 ACT 31.8 mmol/L (22.0-26.0); BG METHEMOGLOBIN 0.3 % (0.0-1.5); BG OXYGEN SATURATION 90.7 % (92.0-98.5); BG OXYHEMOGLOBIN 90.3 % (94.0-97.0); BG PCO2 44.7 mmHg (35.0-45.0); BG PO2 59.7 mmHg (75.0-100.0); BG SAMPLE SITE RIGHT RADIAL; BG TOTAL HEMOGLOBIN 8.5 g/dL (12.0-18.0); BG VENT MODE VENT - AC
[2020-06-26] MEDS: AMMONIUM LACTATE 12% LOTION 240ML TOP SCH ×2 (09:18→17:14)
[2020-06-26] MEDS: PANTOPRAZOLE SODIUM 40 MG/VIAL IV SCH ×2 (09:19→21:26)
[2020-06-26] MEDS: LACTULOSE 20G/30ML UDC PO SCH ×2 (09:19→17:12)
[2020-06-26] MEDS: FERROUS SULFATE 300MG/5ML UDC NG SCH ×3 (09:20→17:12)
[2020-06-26] MEDS: MAGNESIUM OXIDE 400MG TABLET PO SCH (09:20)
[2020-06-26] MEDS: QUETIAPINE FUMARATE 50MG TABLET PO SCH ×2 (09:20→21:26)
[2020-06-26] MEDS: PROPRANOLOL HCL 10MG TABLET NG SCH ×2 (09:20→21:26)
[2020-06-26 10:35] LABS: PHOSPHORUS 4.2 mg/dL (2.5-4.9)
[2020-06-26] MEDS: LORAZEPAM 2MG/ML CPJ IM PRN ×2 (13:32→17:52)
[2020-06-26] MEDS: MORPHINE SULFATE 4 MG/ML CPJ (NOT FOR IM USE) IV PRN ×2 (13:32→17:53)
[2020-06-26] MEDS ORDERED: MAGNESIUM 2 G PREMIX 50 ML IV SCH (15:00)
[2020-06-26] MEDS: FENTANYL CITRATE/PF 2,500 MCG in SODIUM CHLORIDE 0.9% 200 ML IV PRN ×2 (15:34→22:15)
[2020-06-27] VITALS (87 sets, daily range): BP systolic 99–172; BP diastolic 34–93
[2020-06-27] MEDS: NAFCILLIN SODIUM 2,000 MG in SODIUM CHLORIDE 0.9% 100 ML IV SCH ×6 (00:21→21:11)
[2020-06-27] MEDS: METOCLOPRAMIDE HCL 10MG/2ML VIAL IV SCH ×4 (00:21→17:25)
[2020-06-27] MEDS: MIDAZOLAM HCL 100 MG in DEXT 5% WATER 80 ML IV PRN ×2 (05:59→21:35)
[2020-06-27 06:47] LABS: BASOPHILS % 0.9 % (0.0-2.0); EOSINOPHILS % 3.2 % (0.0-5.0); HEMATOCRIT. 24.5 % (42.0-52.0); HEMOGLOBIN. 8.4 g/dL (14.0-18.0); LYMPHOCYTES % 20.7 % (20.0-50.0); MEAN CORPUSCULAR HEMOGLOBIN 30.1 pg (28.0-32.0); MEAN CORPUSCULAR VOLUME 87.7 fL (80.0-94.0); MEAN PLATELET VOLUME 9.3 fl (7.4-10.4); MONOCYTES % 7.2 % (2.0-8.0); PLATELET 438 x1000/uL (130-400); RED CELL DISTRIBUTION WIDTH 16.6 % (11.6-14.6)
[2020-06-27 07:08] LABS: CHLORIDE 103 mEq/L (98-107)
[2020-06-27] MEDS: FERROUS SULFATE 300MG/5ML UDC NG SCH ×3 (08:41→17:25)
[2020-06-27] MEDS: PANTOPRAZOLE SODIUM 40 MG/VIAL IV SCH ×2 (08:41→21:11)
[2020-06-27] MEDS: LACTULOSE 20G/30ML UDC PO SCH ×2 (08:41→17:00)
[2020-06-27] MEDS: PROPRANOLOL HCL 10MG TABLET NG SCH ×2 (08:41→21:11)
[2020-06-27] MEDS: AMMONIUM LACTATE 12% LOTION 240ML TOP SCH ×2 (08:42→17:23)
[2020-06-27] MEDS: QUETIAPINE FUMARATE 50MG TABLET PO SCH ×2 (08:42→21:11)
[2020-06-27] MEDS: MAGNESIUM OXIDE 400MG TABLET PO SCH (09:00)
[2020-06-27 09:41] LABS: BG BASE EXCESS 6.1 mmol/L (-2.0-2.0); BG CARBOXYHEMOGLOBIN 0.5 % (0.5-1.5); BG FRACTION INSPIRED OXYGEN 40; BG HCO3 ACT 29.5 mmol/L (22.0-26.0); BG METHEMOGLOBIN 0.3 % (0.0-1.5); BG OXYHEMOGLOBIN 97.2 % (94.0-97.0); BG PCO2 37.7 mmHg (35.0-45.0); BG PEEP (cmH2O) 0 cmH2O; BG PH 7.511 (7.350-7.450); BG PO2 103.9 mmHg (75.0-100.0); BG SAMPLE SITE RIGHT RADIAL; BG TOTAL HEMOGLOBIN 8.3 g/dL (12.0-18.0); BG TOTAL RESPIRATORY RATE 18 b/min; BG VENT MODE VENT - AC
[2020-06-27] MEDS: FENTANYL CITRATE/PF 2,500 MCG in SODIUM CHLORIDE 0.9% 200 ML IV PRN (10:54)
[2020-06-27] MEDS: MORPHINE SULFATE 4 MG/ML CPJ (NOT FOR IM USE) IV PRN ×2 (11:25→15:40)
[2020-06-27] MEDS: LORAZEPAM 2MG/ML CPJ IM PRN ×3 (11:25→22:25)
[2020-06-27] MEDS ORDERED: POTASSIUM CHLORIDE 20MEQ TABLET SR PO NR (12:00)
[2020-06-28] VITALS (95 sets, daily range): BP systolic 115–219; BP diastolic 33–112
[2020-06-28] MEDS: METOCLOPRAMIDE HCL 10MG/2ML VIAL IV SCH ×4 (00:40→17:21)
[2020-06-28] MEDS: NAFCILLIN SODIUM 2,000 MG in SODIUM CHLORIDE 0.9% 100 ML IV SCH ×6 (00:40→20:15)
[2020-06-28] MEDS: FENTANYL CITRATE/PF 2,500 MCG in SODIUM CHLORIDE 0.9% 200 ML IV PRN ×2 (00:41→15:52)
[2020-06-28] MEDS: LORAZEPAM 2MG/ML CPJ IM PRN ×3 (03:27→17:21)
[2020-06-28] MEDS: PROPRANOLOL HCL 10MG TABLET NG SCH ×2 (08:25→20:16)
[2020-06-28] MEDS: FERROUS SULFATE 300MG/5ML UDC NG SCH ×3 (08:25→17:21)
[2020-06-28] MEDS: PANTOPRAZOLE SODIUM 40 MG/VIAL IV SCH ×2 (08:25→20:14)
[2020-06-28] MEDS: LACTULOSE 20G/30ML UDC PO SCH ×2 (08:25→17:21)
[2020-06-28] MEDS: QUETIAPINE FUMARATE 50MG TABLET PO SCH ×2 (08:25→20:14)
[2020-06-28] MEDS: AMMONIUM LACTATE 12% LOTION 240ML TOP SCH (08:26)
[2020-06-28] MEDS: MIDAZOLAM HCL 100 MG in DEXT 5% WATER 80 ML IV PRN (08:26)
[2020-06-28] MEDS: MORPHINE SULFATE 4 MG/ML CPJ (NOT FOR IM USE) IV PRN ×3 (08:59→17:23)
[2020-06-28] MEDS: MAGNESIUM OXIDE 400MG TABLET PO SCH (09:00)
[2020-06-28 14:12] LABS: BG BASE EXCESS 2.9 mmol/L (-2.0-2.0); BG FRACTION INSPIRED OXYGEN 40; BG HCO3 ACT 26.8 mmol/L (22.0-26.0); BG METHEMOGLOBIN 0.2 % (0.0-1.5); BG OXYHEMOGLOBIN 94.8 % (94.0-97.0); BG PCO2 38.1 mmHg (35.0-45.0); BG PEEP (cmH2O) 0 cmH2O; BG PH 7.465 (7.350-7.450); BG PO2 82.1 mmHg (75.0-100.0); BG SAMPLE SITE RIGHT RADIAL; BG TOTAL HEMOGLOBIN 7.6 g/dL (12.0-18.0); BG VENT MODE VENT - AC
[2020-06-28] MEDS: CLONIDINE 0.1MG TABLET PO PRN (19:51)
[2020-06-29] VITALS (71 sets, daily range): BP systolic 98–204; BP diastolic 34–126
[2020-06-29] MEDS: LORAZEPAM 2MG/ML CPJ IM PRN ×6 (00:09→23:21)
[2020-06-29] MEDS: METOCLOPRAMIDE HCL 10MG/2ML VIAL IV SCH ×4 (00:13→18:00)
[2020-06-29] MEDS: NAFCILLIN SODIUM 2,000 MG in SODIUM CHLORIDE 0.9% 100 ML IV SCH ×6 (00:13→21:34)
[2020-06-29] MEDS: MORPHINE SULFATE 4 MG/ML CPJ (NOT FOR IM USE) IV PRN ×5 (00:56→17:16)
[2020-06-29] MEDS: CLONIDINE 0.1MG TABLET PO PRN (03:07)
[2020-06-29] MEDS: FENTANYL CITRATE/PF 2,500 MCG in SODIUM CHLORIDE 0.9% 200 ML IV PRN ×2 (05:30→18:28)
[2020-06-29] MEDS: LACTULOSE 20G/30ML UDC PO SCH ×2 (08:41→17:15)
[2020-06-29] MEDS: FERROUS SULFATE 300MG/5ML UDC NG SCH ×3 (08:41→18:00)
[2020-06-29] MEDS: PANTOPRAZOLE SODIUM 40 MG/VIAL IV SCH ×2 (08:42→21:34)
[2020-06-29] MEDS: QUETIAPINE FUMARATE 50MG TABLET PO SCH ×2 (08:42→21:34)
[2020-06-29] MEDS: PROPRANOLOL HCL 10MG TABLET NG SCH ×2 (08:42→21:37)
[2020-06-29] MEDS: MAGNESIUM OXIDE 400MG TABLET PO SCH (09:00)
[2020-06-29 12:15] LABS: BASOPHILS % 0.5 % (0.0-2.0); HEMATOCRIT. 23.3 % (42.0-52.0); HEMOGLOBIN. 7.4 g/dL (14.0-18.0); MEAN CORPUSCULAR HEMOGLOBIN 28.4 pg (28.0-32.0); MEAN CORPUSCULAR VOLUME 89.1 fL (80.0-94.0); MEAN PLATELET VOLUME 9.8 fl (7.4-10.4); NEUTROPHILS % 61.5 % (40.0-76.0); PLATELET 307 x1000/uL (130-400); RED BLOOD CELL COUNT 2.61 mill/uL (4.7-6.1); RED CELL DISTRIBUTION WIDTH 16.6 % (11.6-14.6)
[2020-06-29 12:16] LABS: CHLORIDE 107 mEq/L (98-107)
[2020-06-30] VITALS (48 sets, daily range): BP systolic 45–264; BP diastolic 35–133
[2020-06-30] MEDS: METOCLOPRAMIDE HCL 10MG/2ML VIAL IV SCH ×4 (00:14→17:45)
[2020-06-30] MEDS: NAFCILLIN SODIUM 2,000 MG in SODIUM CHLORIDE 0.9% 100 ML IV SCH ×6 (00:17→20:42)
[2020-06-30] MEDS: MORPHINE SULFATE 4 MG/ML CPJ (NOT FOR IM USE) IV PRN ×4 (04:00→17:47)
[2020-06-30] MEDS: LORAZEPAM 2MG/ML CPJ IM PRN ×4 (06:14→20:43)
[2020-06-30 08:05] LABS: BASOPHILS % 0.8 % (0.0-2.0); EOSINOPHILS % 2.9 % (0.0-5.0); HEMATOCRIT. 25.5 % (42.0-52.0); HEMOGLOBIN. 8.1 g/dL (14.0-18.0); LYMPHOCYTES % 24.8 % (20.0-50.0); MEAN CORPUSCULAR HEMOGLOBIN 28.2 pg (28.0-32.0); MEAN CORPUSCULAR VOLUME 88.9 fL (80.0-94.0); MEAN PLATELET VOLUME 9.7 fl (7.4-10.4); MONOCYTES % 7.3 % (2.0-8.0); NEUTROPHILS % 64.2 % (40.0-76.0); PLATELET 367 x1000/uL (130-400); RED BLOOD CELL COUNT 2.87 mill/uL (4.7-6.1); RED CELL DISTRIBUTION WIDTH 16.7 % (11.6-14.6)
[2020-06-30] MEDS: FENTANYL CITRATE/PF 2,500 MCG in SODIUM CHLORIDE 0.9% 200 ML IV PRN (08:11)
[2020-06-30] MEDS: FERROUS SULFATE 300MG/5ML UDC NG SCH ×3 (08:12→17:45)
[2020-06-30] MEDS: LACTULOSE 20G/30ML UDC PO SCH ×2 (08:12→17:45)
[2020-06-30] MEDS: PROPRANOLOL HCL 10MG TABLET NG SCH ×2 (08:13→20:55)
[2020-06-30] MEDS: QUETIAPINE FUMARATE 50MG TABLET PO SCH ×2 (08:13→20:43)
[2020-06-30 08:33] LABS: CHLORIDE 107 mEq/L (98-107)
[2020-06-30] MEDS: CLONIDINE 0.1MG TABLET PO PRN ×2 (10:19→17:45)
[2020-06-30] MEDS: MAGNESIUM OXIDE 400MG TABLET PO SCH (12:32)
[2020-06-30] MEDS: AMMONIUM LACTATE 12% LOTION 240ML TOP SCH (17:47)
[2020-06-30] MEDS ORDERED: POTASSIUM CHLORIDE 20MEQ/PACKET PO NR (18:00)
[2020-06-30] MEDS: MIDAZOLAM HCL 100 MG in DEXT 5% WATER 80 ML IV PRN (21:11)
[2020-06-30 22:28] LABS: BG BASE EXCESS 5.5 mmol/L (-2.0-2.0); BG CARBOXYHEMOGLOBIN 0.1 % (0.5-1.5); BG DEOXYHEMOGLOBIN 1.9 % (0.0-5.0); BG FRACTION INSPIRED OXYGEN 100; BG HCO3 ACT 32.3 mmol/L (22.0-26.0); BG METHEMOGLOBIN 0.4 % (0.0-1.5); BG OXYGEN SATURATION 98.1 % (92.0-98.5); BG OXYHEMOGLOBIN 97.6 % (94.0-97.0); BG PCO2 60.5 mmHg (35.0-45.0); BG PH 7.345 (7.350-7.450); BG PO2 111.4 mmHg (75.0-100.0); BG SAMPLE SITE LEFT BRACHIAL; BG TOTAL HEMOGLOBIN 9.4 g/dL (12.0-18.0); BG VENT MODE RESUS BAG
[2020-07-01] VITALS (50 sets, daily range): BP systolic 91–177; BP diastolic 31–76
[2020-07-01] MEDS: METOCLOPRAMIDE HCL 10MG/2ML VIAL IV SCH ×5 (00:24→23:46)
[2020-07-01] MEDS: NAFCILLIN SODIUM 2,000 MG in SODIUM CHLORIDE 0.9% 100 ML IV SCH ×6 (00:31→20:55)
[2020-07-01] MEDS: ACETAMINOPHEN 650MG/20.3ML UDC NG PRN (01:23)
[2020-07-01] MEDS: MORPHINE SULFATE 4 MG/ML CPJ (NOT FOR IM USE) IV PRN (03:59)
[2020-07-01 06:57] LABS: BASOPHILS % 0.4 % (0.0-2.0); EOSINOPHILS % 0.2 % (0.0-5.0); HEMATOCRIT. 22.1 % (42.0-52.0); LYMPHOCYTES % 17.2 % (20.0-50.0); MEAN CORPUSCULAR HEMOGLOBIN 28.2 pg (28.0-32.0); MEAN CORPUSCULAR VOLUME 88.9 fL (80.0-94.0); MEAN PLATELET VOLUME 9.7 fl (7.4-10.4); MONOCYTES % 7.5 % (2.0-8.0); NEUTROPHILS % 74.7 % (40.0-76.0); PLATELET 328 x1000/uL (130-400); RED BLOOD CELL COUNT 2.48 mill/uL (4.7-6.1); RED CELL DISTRIBUTION WIDTH 16.7 % (11.6-14.6)
[2020-07-01] MEDS: FERROUS SULFATE 300MG/5ML UDC NG SCH ×3 (08:08→17:22)
[2020-07-01] MEDS: QUETIAPINE FUMARATE 50MG TABLET PO SCH ×2 (08:08→20:55)
[2020-07-01] MEDS: LACTULOSE 20G/30ML UDC PO SCH ×2 (08:08→17:00)
[2020-07-01] MEDS: MAGNESIUM OXIDE 400MG TABLET PO SCH (08:09)
[2020-07-01] MEDS: PROPRANOLOL HCL 10MG TABLET NG SCH ×2 (08:09→20:56)
[2020-07-01] MEDS: LORAZEPAM 2MG/ML CPJ IM PRN (08:59)
[2020-07-01] MEDS: AMMONIUM LACTATE 12% LOTION 240ML TOP SCH ×2 (09:00→17:06)
[2020-07-01 12:39] LABS: BG BASE EXCESS 4.2 mmol/L (-2.0-2.0); BG CARBOXYHEMOGLOBIN 0.3 % (0.5-1.5); BG DEOXYHEMOGLOBIN 2.4 % (0.0-5.0); BG FRACTION INSPIRED OXYGEN 90; BG HCO3 ACT 28.7 mmol/L (22.0-26.0); BG METHEMOGLOBIN 0.1 % (0.0-1.5); BG OXYGEN SATURATION 97.6 % (92.0-98.5); BG OXYHEMOGLOBIN 97.2 % (94.0-97.0); BG PCO2 42.7 mmHg (35.0-45.0); BG PEEP (cmH2O) 0 cmH2O; BG PH 7.445 (7.350-7.450); BG PO2 102.5 mmHg (75.0-100.0); BG SAMPLE SITE RIGHT RADIAL; BG VENT MODE VENT - AC
[2020-07-01] MEDS: DOCUSATE SODIUM SUGAR FREE 100MG/10ML UDC NG SCH ×2 (13:51→20:56)
[2020-07-01 15:13] LABS: TOTAL IRON BINDING CAPACITY 153 ug/dL (250-450)
[2020-07-01] MEDS: LORAZEPAM 2MG/ML CPJ IV PRN (16:25)
[2020-07-01] MEDS: FENTANYL CITRATE/PF 2,500 MCG in SODIUM CHLORIDE 0.9% 200 ML IV PRN (18:39)
[2020-07-01] MEDS: MIDAZOLAM HCL 100 MG in DEXT 5% WATER 80 ML IV PRN (20:58)
[2020-07-01 21:11] LABS: HEMATOCRIT 25.5 % (42.0-52.0); HEMOGLOBIN 8.1 g/dL (14.0-18.0)
[2020-07-02] VITALS (58 sets, daily range): BP systolic 86–181; BP diastolic 39–115
[2020-07-02] MEDS: NAFCILLIN SODIUM 2,000 MG in SODIUM CHLORIDE 0.9% 100 ML IV SCH ×6 (00:31→20:45)
[2020-07-02] MEDS: METOCLOPRAMIDE HCL 10MG/2ML VIAL IV SCH ×4 (06:41→23:24)
[2020-07-02 07:12] LABS: HEMATOCRIT 26.3 % (42.0-52.0); HEMOGLOBIN 8.3 g/dL (14.0-18.0)
[2020-07-02] MEDS: PROPRANOLOL HCL 10MG TABLET NG SCH ×2 (09:00→20:46)
[2020-07-02] MEDS: DOCUSATE SODIUM SUGAR FREE 100MG/10ML UDC NG SCH ×2 (09:10→17:00)
[2020-07-02] MEDS: FERROUS SULFATE 300MG/5ML UDC NG SCH ×3 (09:10→17:21)
[2020-07-02] MEDS: LACTULOSE 20G/30ML UDC PO SCH ×2 (09:10→17:00)
[2020-07-02] MEDS: QUETIAPINE FUMARATE 50MG TABLET PO SCH ×2 (09:10→20:46)
[2020-07-02] MEDS: AMMONIUM LACTATE 12% LOTION 240ML TOP SCH ×2 (09:10→17:22)
[2020-07-02 10:14] LABS: BG BASE EXCESS 4.2 mmol/L (-2.0-2.0); BG CARBOXYHEMOGLOBIN 0.3 % (0.5-1.5); BG DEOXYHEMOGLOBIN 0.4 % (0.0-5.0); BG FRACTION INSPIRED OXYGEN 90; BG HCO3 ACT 28.6 mmol/L (22.0-26.0); BG METHEMOGLOBIN 0.5 % (0.0-1.5); BG OXYGEN SATURATION 99.6 % (92.0-98.5); BG OXYHEMOGLOBIN 98.8 % (94.0-97.0); BG PCO2 42.3 mmHg (35.0-45.0); BG PH 7.448 (7.350-7.450); BG PO2 281.8 mmHg (75.0-100.0); BG SAMPLE SITE RIGHT RADIAL; BG TOTAL HEMOGLOBIN 8.3 g/dL (12.0-18.0); BG VENT MODE VENT - AC
[2020-07-02] MEDS ORDERED: SODIUM CHLORIDE 0.45% 500 ML IV ONE (12:15)
[2020-07-02] MEDS: MAGNESIUM OXIDE 400MG TABLET PO SCH (13:39)
[2020-07-02] MEDS: DEXTROSE 5% WATER 1,000 ML IV SCH (13:40)
[2020-07-02] MEDS: MIDODRINE HCL 5MG TABLET PO SCH ×2 (13:40→17:21)
[2020-07-02] MEDS: LORAZEPAM 2MG/ML CPJ IV PRN (18:18)
[2020-07-02] MEDS ORDERED: AMIODARONE HCL 900 MG in DEXT 5% WATER 482 ML IV PRN (20:30)
[2020-07-02 20:50] LABS: BG BASE EXCESS -1.2 mmol/L (-2.0-2.0); BG DEOXYHEMOGLOBIN 24.8 % (0.0-5.0); BG FRACTION INSPIRED OXYGEN 50; BG METHEMOGLOBIN 0.3 % (0.0-1.5); BG OXYGEN SATURATION 75.1 % (92.0-98.5); BG OXYHEMOGLOBIN 74.9 % (94.0-97.0); BG PCO2 63.4 mmHg (35.0-45.0); BG PH 7.247 (7.350-7.450); BG PO2 45.6 mmHg (75.0-100.0); BG SAMPLE SITE RIGHT RADIAL; BG VENT MODE VENT - AC
[2020-07-02] MEDS: MIDAZOLAM HCL 100 MG in DEXT 5% WATER 80 ML IV PRN (21:50)
[2020-07-02] MEDS: FENTANYL CITRATE/PF 2,500 MCG in SODIUM CHLORIDE 0.9% 200 ML IV PRN (23:43)
[2020-07-03] VITALS (68 sets, daily range): BP systolic 80–137; BP diastolic 33–76
[2020-07-03] MEDS: DEXTROSE 5% WATER 1,000 ML IV SCH ×2 (01:35→14:47)
[2020-07-03] MEDS: NAFCILLIN SODIUM 2,000 MG in SODIUM CHLORIDE 0.9% 100 ML IV SCH ×6 (02:01→22:10)
[2020-07-03] MEDS: METOCLOPRAMIDE HCL 10MG/2ML VIAL IV SCH ×4 (05:53→23:13)
[2020-07-03 07:42] LABS: BASOPHILS % 0.6 % (0.0-2.0); EOSINOPHILS % 0.5 % (0.0-5.0); HEMATOCRIT. 28.7 % (42.0-52.0); HEMOGLOBIN. 9.3 g/dL (14.0-18.0); LYMPHOCYTES % 18.3 % (20.0-50.0); MEAN CORPUSCULAR HEMOGLOBIN 28.6 pg (28.0-32.0); MEAN CORPUSCULAR VOLUME 88.6 fL (80.0-94.0); MEAN PLATELET VOLUME 9.8 fl (7.4-10.4); MONOCYTES % 6.2 % (2.0-8.0); NEUTROPHILS % 74.4 % (40.0-76.0); PLATELET 386 x1000/uL (130-400); RED BLOOD CELL COUNT 3.24 mill/uL (4.7-6.1); RED CELL DISTRIBUTION WIDTH 16.9 % (11.6-14.6)
[2020-07-03] MEDS: PROPRANOLOL HCL 10MG TABLET NG SCH ×2 (09:00→20:24)
[2020-07-03] MEDS: MAGNESIUM OXIDE 400MG TABLET PO SCH (09:00)
[2020-07-03] MEDS: DOCUSATE SODIUM SUGAR FREE 100MG/10ML UDC NG SCH ×2 (09:00→16:37)
[2020-07-03] MEDS: LACTULOSE 20G/30ML UDC PO SCH ×2 (09:00→16:38)
[2020-07-03] MEDS: FERROUS SULFATE 300MG/5ML UDC NG SCH ×3 (09:05→16:53)
[2020-07-03] MEDS: QUETIAPINE FUMARATE 50MG TABLET PO SCH ×2 (09:06→20:24)
[2020-07-03] MEDS: MIDODRINE HCL 5MG TABLET PO SCH ×3 (09:06→16:53)
[2020-07-03] MEDS: AMMONIUM LACTATE 12% LOTION 240ML TOP SCH ×2 (09:07→16:53)
[2020-07-03] MEDS ORDERED: DEXTROSE 50% WATER 50ML SYRINGE IV ONE (12:00)
[2020-07-03] MEDS ORDERED: SODIUM BICARBONATE 8.4% 1 MEQ/ML 50ML SYR IV ONE (12:00)
[2020-07-03] MEDS ORDERED: EPINEPHRINE 0.1MG/ML (1:10,000) 10ML SYR ONE (12:00)
[2020-07-03 14:33] LABS: BG BASE EXCESS -4.7 mmol/L (-2.0-2.0); BG CARBOXYHEMOGLOBIN 0.3 % (0.5-1.5); BG DEOXYHEMOGLOBIN 0.7 % (0.0-5.0); BG FRACTION INSPIRED OXYGEN 100; BG METHEMOGLOBIN 0.5 % (0.0-1.5); BG OXYGEN SATURATION 99.3 % (92.0-98.5); BG OXYHEMOGLOBIN 98.5 % (94.0-97.0); BG PCO2 24.8 mmHg (35.0-45.0); BG PEEP (cmH2O) 0 cmH2O; BG PH 7.478 (7.350-7.450); BG PO2 279.4 mmHg (75.0-100.0); BG SAMPLE SITE RIGHT RADIAL; BG TOTAL HEMOGLOBIN 8.1 g/dL (12.0-18.0); BG VENT MODE VENT - AC
[2020-07-03] MEDS: MIDAZOLAM HCL 100 MG in DEXT 5% WATER 80 ML IV PRN (14:48)
[2020-07-03] MEDS: LORAZEPAM 2MG/ML CPJ IV PRN (16:53)
[2020-07-03 18:59] LABS: CREATINE KINASE 33 IU/L (39-308)
[2020-07-03] MEDS: ACETYLCYSTEINE 100MG/ML 10% VIAL 4ML INH SCH (20:51)
[2020-07-03] MEDS: FENTANYL CITRATE/PF 2,500 MCG in SODIUM CHLORIDE 0.9% 200 ML IV PRN (23:07)
[2020-07-03] MEDS: PHENYLEPHRINE 100 MG in SODIUM CHLORIDE 0.9% 240 ML IV PRN (23:45)
[2020-07-04] VITALS (96 sets, daily range): BP systolic 83–155; BP diastolic 32–100
[2020-07-04] MEDS: LORAZEPAM 2MG/ML CPJ IV PRN ×4 (00:03→18:06)
[2020-07-04] MEDS: NAFCILLIN SODIUM 2,000 MG in SODIUM CHLORIDE 0.9% 100 ML IV SCH ×6 (01:20→21:53)
[2020-07-04] MEDS: DEXTROSE 5% WATER 1,000 ML IV SCH (04:41)
[2020-07-04] MEDS: METOCLOPRAMIDE HCL 10MG/2ML VIAL IV SCH ×2 (05:37→12:39)
[2020-07-04] MEDS: MIDAZOLAM HCL 100 MG in DEXT 5% WATER 80 ML IV PRN ×3 (06:40→20:24)
[2020-07-04] MEDS: ACETAMINOPHEN 650MG/20.3ML UDC NG PRN (06:56)
[2020-07-04 07:53] LABS: BASOPHILS % 1.5 % (0.0-2.0); EOSINOPHILS % 3.6 % (0.0-5.0); HEMATOCRIT. 33.8 % (42.0-52.0); HEMOGLOBIN. 10.6 g/dL (14.0-18.0); LYMPHOCYTES % 11.5 % (20.0-50.0); MEAN CORPUSCULAR HEMOGLOBIN 28.8 pg (28.0-32.0); MEAN PLATELET VOLUME 10.7 fl (7.4-10.4); MONOCYTES % 2.4 % (2.0-8.0); PLATELET 414 x1000/uL (130-400); RED BLOOD CELL COUNT 3.68 mill/uL (4.7-6.1); RED CELL DISTRIBUTION WIDTH 17.9 % (11.6-14.6)
[2020-07-04] MEDS: AMMONIUM LACTATE 12% LOTION 240ML TOP SCH ×2 (09:00→17:00)
[2020-07-04] MEDS: DOCUSATE SODIUM SUGAR FREE 100MG/10ML UDC NG SCH ×2 (09:13→18:03)
[2020-07-04] MEDS: FERROUS SULFATE 300MG/5ML UDC NG SCH ×3 (09:13→18:03)
[2020-07-04] MEDS: PROPRANOLOL HCL 10MG TABLET NG SCH ×2 (09:14→21:53)
[2020-07-04] MEDS: QUETIAPINE FUMARATE 50MG TABLET PO SCH ×2 (09:14→21:53)
[2020-07-04] MEDS: MIDODRINE HCL 5MG TABLET PO SCH ×3 (09:15→18:05)
[2020-07-04] MEDS: LACTULOSE 20G/30ML UDC PO SCH ×2 (09:15→18:03)
[2020-07-04] MEDS: FENTANYL CITRATE/PF 2,500 MCG in SODIUM CHLORIDE 0.9% 200 ML IV PRN ×2 (11:15→22:43)
[2020-07-04] MEDS: MAGNESIUM OXIDE 400MG TABLET PO SCH (12:40)
[2020-07-04] MEDS ORDERED: RACEPINEPHRINE 2.25% 0.5ML NEB VIAL HHN SCH (13:45)
[2020-07-04] MEDS: PHENYLEPHRINE 100 MG in SODIUM CHLORIDE 0.9% 240 ML IV PRN (18:08)
[2020-07-05] VITALS (60 sets, daily range): BP systolic 93–132; BP diastolic 38–78
[2020-07-05] MEDS: NAFCILLIN SODIUM 2,000 MG in SODIUM CHLORIDE 0.9% 100 ML IV SCH (00:12)
[2020-07-05] MEDS: CEFEPIME 500 MG in SODIUM CHLORIDE 0.9% 50 ML IV SCH (02:48)
[2020-07-05] MEDS: PHENYLEPHRINE 200 MG in SODIUM CHLORIDE 0.9% 480 ML IV SCH ×2 (02:49→20:09)
[2020-07-05 07:16] LABS: EOSINOPHILS % 3.5 % (0.0-5.0); HEMATOCRIT. 29.4 % (42.0-52.0); HEMOGLOBIN. 9.5 g/dL (14.0-18.0); LYMPHOCYTES % 22.3 % (20.0-50.0); MEAN CORPUSCULAR HEMOGLOBIN 28.7 pg (28.0-32.0); MEAN CORPUSCULAR VOLUME 89.2 fL (80.0-94.0); MEAN PLATELET VOLUME 9.5 fl (7.4-10.4); NEUTROPHILS % 69.2 % (40.0-76.0); PLATELET 552 x1000/uL (130-400); RED CELL DISTRIBUTION WIDTH 17.5 % (11.6-14.6)
[2020-07-05] MEDS: QUETIAPINE FUMARATE 50MG TABLET PO SCH ×2 (08:21→20:37)
[2020-07-05] MEDS: DOCUSATE SODIUM SUGAR FREE 100MG/10ML UDC NG SCH (08:21)
[2020-07-05] MEDS: MAGNESIUM OXIDE 400MG TABLET PO SCH (08:21)
[2020-07-05] MEDS: FERROUS SULFATE 300MG/5ML UDC NG SCH ×3 (08:21→17:37)
[2020-07-05] MEDS: LACTULOSE 20G/30ML UDC PO SCH ×2 (08:21→17:37)
[2020-07-05] MEDS: MIDODRINE HCL 5MG TABLET PO SCH ×3 (08:22→17:38)
[2020-07-05] MEDS: AMMONIUM LACTATE 12% LOTION 240ML TOP SCH ×2 (08:23→17:37)
[2020-07-05] MEDS: FENTANYL CITRATE/PF 2,500 MCG in SODIUM CHLORIDE 0.9% 200 ML IV PRN ×2 (10:21→23:02)
[2020-07-05] MEDS ORDERED: RACEPINEPHRINE 2.25% 0.5ML NEB VIAL HHN SCH (13:00)
[2020-07-05] MEDS: METOCLOPRAMIDE HCL 10MG/2ML VIAL IV SCH (17:37)
[2020-07-06] VITALS (92 sets, daily range): BP systolic 89–155; BP diastolic 36–117
[2020-07-06] MEDS: METOCLOPRAMIDE HCL 10MG/2ML VIAL IV SCH ×5 (00:31→23:59)
[2020-07-06] MEDS: CEFEPIME 500 MG in SODIUM CHLORIDE 0.9% 50 ML IV SCH (01:30)
[2020-07-06] MEDS: LORAZEPAM 2MG/ML CPJ IV PRN (04:37)
[2020-07-06 06:16] LABS: BASOPHILS % 0.8 % (0.0-2.0); HEMATOCRIT. 26.9 % (42.0-52.0); HEMOGLOBIN. 8.6 g/dL (14.0-18.0); MEAN CORPUSCULAR HEMOGLOBIN 28.6 pg (28.0-32.0); MEAN CORPUSCULAR VOLUME 89.4 fL (80.0-94.0); MEAN PLATELET VOLUME 9.2 fl (7.4-10.4); MONOCYTES % 7.1 % (2.0-8.0); NEUTROPHILS % 62.1 % (40.0-76.0); PLATELET 463 x1000/uL (130-400); RED BLOOD CELL COUNT 3.01 mill/uL (4.7-6.1); RED CELL DISTRIBUTION WIDTH 17.9 % (11.6-14.6)
[2020-07-06] MEDS: FERROUS SULFATE 300MG/5ML UDC NG SCH ×3 (08:13→17:44)
[2020-07-06] MEDS: QUETIAPINE FUMARATE 50MG TABLET PO SCH (08:13)
[2020-07-06] MEDS: LACTULOSE 20G/30ML UDC PO SCH ×2 (08:13→17:44)
[2020-07-06] MEDS: MIDODRINE HCL 5MG TABLET PO SCH ×3 (08:14→17:46)
[2020-07-06] MEDS: AMMONIUM LACTATE 12% LOTION 240ML TOP SCH ×2 (08:14→17:46)
[2020-07-06] MEDS: MAGNESIUM OXIDE 400MG TABLET PO SCH (08:16)
[2020-07-06] MEDS: ACETYLCYSTEINE 100MG/ML 10% VIAL 4ML INH SCH ×2 (09:05→14:39)
[2020-07-06] MEDS: FENTANYL CITRATE/PF 2,500 MCG in SODIUM CHLORIDE 0.9% 200 ML IV PRN (12:29)
[2020-07-06] MEDS: PHENYLEPHRINE 100 MG in SODIUM CHLORIDE 0.9% 240 ML IV SCH (12:31)
[2020-07-06] MEDS: QUETIAPINE FUMARATE 25MG TABLET PO SCH (20:32)
[2020-07-06] MEDS ORDERED: RACEPINEPHRINE 2.25% 0.5ML NEB VIAL HHN PRN (21:45)
[2020-07-07] VITALS (94 sets, daily range): BP systolic 88–176; BP diastolic 34–101
[2020-07-07] MEDS: PHENYLEPHRINE 100 MG in SODIUM CHLORIDE 0.9% 240 ML IV SCH (00:15)
[2020-07-07] MEDS: FENTANYL CITRATE/PF 2,500 MCG in SODIUM CHLORIDE 0.9% 200 ML IV PRN ×3 (00:16→18:48)
[2020-07-07] MEDS: CEFEPIME 500 MG in SODIUM CHLORIDE 0.9% 50 ML IV SCH (01:44)
[2020-07-07] MEDS: METOCLOPRAMIDE HCL 10MG/2ML VIAL IV SCH ×4 (05:19→23:52)
[2020-07-07 06:15] LABS: BASOPHILS % 0.7 % (0.0-2.0); EOSINOPHILS % 2.9 % (0.0-5.0); HEMATOCRIT. 25.7 % (42.0-52.0); HEMOGLOBIN. 8.2 g/dL (14.0-18.0); LYMPHOCYTES % 26.1 % (20.0-50.0); MEAN CORPUSCULAR HEMOGLOBIN 28.7 pg (28.0-32.0); MEAN CORPUSCULAR VOLUME 89.3 fL (80.0-94.0); MEAN PLATELET VOLUME 9.3 fl (7.4-10.4); MONOCYTES % 8.4 % (2.0-8.0); NEUTROPHILS % 61.9 % (40.0-76.0); PLATELET 404 x1000/uL (130-400); RED BLOOD CELL COUNT 2.88 mill/uL (4.7-6.1); RED CELL DISTRIBUTION WIDTH 17.8 % (11.6-14.6)
[2020-07-07] MEDS: LACTULOSE 20G/30ML UDC PO SCH ×2 (08:57→17:37)
[2020-07-07] MEDS: FERROUS SULFATE 300MG/5ML UDC NG SCH ×3 (08:57→17:36)
[2020-07-07] MEDS: QUETIAPINE FUMARATE 25MG TABLET PO SCH ×2 (08:58→20:01)
[2020-07-07] MEDS: MIDODRINE HCL 5MG TABLET PO SCH ×5 (08:58→17:00)
[2020-07-07] MEDS: AMMONIUM LACTATE 12% LOTION 240ML TOP SCH ×2 (08:58→18:48)
[2020-07-07] MEDS: MAGNESIUM OXIDE 400MG TABLET PO SCH (08:58)
[2020-07-07] MEDS: MORPHINE SULFATE 4 MG/ML CPJ (NOT FOR IM USE) IV PRN (13:11)
[2020-07-07] MEDS: LORAZEPAM 2MG/ML CPJ IV PRN ×2 (17:37→22:50)
[2020-07-07 18:09] LABS: BG BASE EXCESS -0.3 mmol/L (-2.0-2.0); BG CARBOXYHEMOGLOBIN 0.3 % (0.5-1.5); BG DEOXYHEMOGLOBIN 3.3 % (0.0-5.0); BG FRACTION INSPIRED OXYGEN 40; BG HCO3 ACT 26.3 mmol/L (22.0-26.0); BG METHEMOGLOBIN 0.2 % (0.0-1.5); BG OXYGEN SATURATION 96.7 % (92.0-98.5); BG OXYHEMOGLOBIN 96.2 % (94.0-97.0); BG PCO2 53.3 mmHg (35.0-45.0); BG PH 7.311 (7.350-7.450); BG PO2 94.1 mmHg (75.0-100.0); BG SAMPLE SITE RIGHT RADIAL; BG TOTAL HEMOGLOBIN 8.8 g/dL (12.0-18.0); BG VENT MODE VENT - AC
[2020-07-08] VITALS (59 sets, daily range): BP systolic 95–181; BP diastolic 40–90
[2020-07-08] MEDS: MORPHINE SULFATE 4 MG/ML CPJ (NOT FOR IM USE) IV PRN (01:02)
[2020-07-08] MEDS: CEFEPIME 500 MG in SODIUM CHLORIDE 0.9% 50 ML IV SCH (01:21)
[2020-07-08] MEDS: FENTANYL CITRATE/PF 2,500 MCG in SODIUM CHLORIDE 0.9% 200 ML IV PRN ×3 (01:35→17:16)
[2020-07-08] MEDS: LORAZEPAM 2MG/ML CPJ IV PRN ×2 (02:50→20:25)
[2020-07-08] MEDS: METOCLOPRAMIDE HCL 10MG/2ML VIAL IV SCH ×3 (05:46→17:30)
[2020-07-08 07:25] LABS: BASOPHILS % 0.4 % (0.0-2.0); EOSINOPHILS % 4.7 % (0.0-5.0); HEMATOCRIT. 26.1 % (42.0-52.0); HEMOGLOBIN. 8.3 g/dL (14.0-18.0); LYMPHOCYTES % 26.8 % (20.0-50.0); MEAN CORPUSCULAR HEMOGLOBIN 29.1 pg (28.0-32.0); MEAN CORPUSCULAR VOLUME 90.7 fL (80.0-94.0); MEAN PLATELET VOLUME 9.4 fl (7.4-10.4); MONOCYTES % 8.2 % (2.0-8.0); NEUTROPHILS % 59.9 % (40.0-76.0); PLATELET 335 x1000/uL (130-400); RED BLOOD CELL COUNT 2.87 mill/uL (4.7-6.1); RED CELL DISTRIBUTION WIDTH 17.9 % (11.6-14.6)
[2020-07-08] MEDS: LACTULOSE 20G/30ML UDC PO SCH ×2 (09:07→17:28)
[2020-07-08] MEDS: MIDODRINE HCL 5MG TABLET PO SCH ×3 (09:07→17:29)
[2020-07-08] MEDS: QUETIAPINE FUMARATE 25MG TABLET PO SCH ×2 (09:07→20:16)
[2020-07-08] MEDS: MAGNESIUM OXIDE 400MG TABLET PO SCH (09:07)
[2020-07-08] MEDS: FERROUS SULFATE 300MG/5ML UDC NG SCH ×3 (09:07→17:29)
[2020-07-08] MEDS: AMMONIUM LACTATE 12% LOTION 240ML TOP SCH ×2 (09:08→17:08)
[2020-07-08] MEDS ORDERED: METOPROLOL TARTRATE 5MG/5ML VIAL IV NR (11:45)
[2020-07-08] MEDS: ACETAMINOPHEN 650MG/20.3ML UDC NG PRN (20:07)
[2020-07-08] MEDS: METOPROLOL TARTRATE 25MG TABLET GT SCH (20:16)
[2020-07-09] VITALS (58 sets, daily range): BP systolic 94–181; BP diastolic 39–134
[2020-07-09] MEDS: FENTANYL CITRATE/PF 2,500 MCG in SODIUM CHLORIDE 0.9% 200 ML IV PRN ×2 (01:24→08:10)
[2020-07-09] MEDS: CEFEPIME 500 MG in SODIUM CHLORIDE 0.9% 50 ML IV SCH (02:01)
[2020-07-09 05:32] LABS: BASOPHILS % 0.6 % (0.0-2.0); EOSINOPHILS % 3.9 % (0.0-5.0); HEMATOCRIT. 28.6 % (42.0-52.0); LYMPHOCYTES % 37.5 % (20.0-50.0); MEAN CORPUSCULAR HEMOGLOBIN 28.9 pg (28.0-32.0); MEAN PLATELET VOLUME 9.6 fl (7.4-10.4); MONOCYTES % 8.9 % (2.0-8.0); NEUTROPHILS % 49.1 % (40.0-76.0); PLATELET 398 x1000/uL (130-400); RED BLOOD CELL COUNT 3.11 mill/uL (4.7-6.1); RED CELL DISTRIBUTION WIDTH 18.4 % (11.6-14.6)
[2020-07-09] MEDS: METOCLOPRAMIDE HCL 10MG/2ML VIAL IV SCH ×6 (05:50→23:43)
[2020-07-09] MEDS: LACTULOSE 20G/30ML UDC PO SCH (08:15)
[2020-07-09] MEDS: AMMONIUM LACTATE 12% LOTION 240ML TOP SCH ×2 (08:15→17:07)
[2020-07-09] MEDS: FERROUS SULFATE 300MG/5ML UDC NG SCH ×3 (08:15→17:10)
[2020-07-09] MEDS: MAGNESIUM OXIDE 400MG TABLET PO SCH (08:16)
[2020-07-09] MEDS: QUETIAPINE FUMARATE 25MG TABLET PO SCH ×2 (08:16→20:46)
[2020-07-09] MEDS: METOPROLOL TARTRATE 25MG TABLET GT SCH ×2 (08:17→20:46)
[2020-07-09] MEDS: MIDODRINE HCL 5MG TABLET PO SCH ×3 (08:17→17:11)
[2020-07-09] MEDS: LORAZEPAM 2MG/ML CPJ IV PRN ×4 (10:12→20:46)
[2020-07-09 10:38] LABS: BG BASE EXCESS -1.4 mmol/L (-2.0-2.0); BG CARBOXYHEMOGLOBIN 0.7 % (0.5-1.5); BG HCO3 ACT 24.8 mmol/L (22.0-26.0); BG METHEMOGLOBIN 0.3 % (0.0-1.5); BG PCO2 49.3 mmHg (35.0-45.0); BG PO2 148.4 mmHg (75.0-100.0); BG SAMPLE SITE RIGHT RADIAL; BG TOTAL HEMOGLOBIN 9.1 g/dL (12.0-18.0); BG VENT MODE VENT - AC
[2020-07-09] MEDS: MORPHINE SULFATE 4 MG/ML CPJ (NOT FOR IM USE) IV PRN (17:58)
[2020-07-09] MEDS: HYDROCODONE/ACETAMINOPHEN 10/325MG TABLET PO PRN (20:47)
[2020-07-10] VITALS (87 sets, daily range): BP systolic 107–219; BP diastolic 44–127
[2020-07-10] MEDS: CEFEPIME 500 MG in SODIUM CHLORIDE 0.9% 50 ML IV SCH (01:16)
[2020-07-10] MEDS: MORPHINE SULFATE 4 MG/ML CPJ (NOT FOR IM USE) IV PRN ×2 (01:17→09:06)
[2020-07-10] MEDS: LORAZEPAM 2MG/ML CPJ IV PRN ×2 (03:20→16:11)
[2020-07-10] MEDS: HYDROCODONE/ACETAMINOPHEN 10/325MG TABLET PO PRN (04:24)
[2020-07-10] MEDS: CLONIDINE 0.1MG TABLET PO PRN (04:26)
[2020-07-10] MEDS: METOCLOPRAMIDE HCL 10MG/2ML VIAL IV SCH ×3 (06:00→17:15)
[2020-07-10] MEDS: METOPROLOL TARTRATE 25MG TABLET GT SCH ×2 (08:59→21:09)
[2020-07-10] MEDS: FERROUS SULFATE 300MG/5ML UDC NG SCH ×3 (08:59→17:15)
[2020-07-10] MEDS: MIDODRINE HCL 5MG TABLET PO SCH ×3 (09:01→17:08)
[2020-07-10] MEDS: AMMONIUM LACTATE 12% LOTION 240ML TOP SCH ×2 (09:02→16:13)
[2020-07-10] MEDS: MAGNESIUM OXIDE 400MG TABLET PO SCH (09:02)
[2020-07-10] MEDS: QUETIAPINE FUMARATE 25MG TABLET PO SCH ×2 (09:16→21:09)
[2020-07-10 10:51] LABS: BASOPHILS % 0.8 % (0.0-2.0); EOSINOPHILS % 3.2 % (0.0-5.0); HEMATOCRIT. 25.2 % (42.0-52.0); HEMOGLOBIN. 8.1 g/dL (14.0-18.0); LYMPHOCYTES % 19.5 % (20.0-50.0); MEAN CORPUSCULAR HEMOGLOBIN 29.1 pg (28.0-32.0); MEAN CORPUSCULAR VOLUME 90.5 fL (80.0-94.0); MEAN PLATELET VOLUME 9.4 fl (7.4-10.4); MONOCYTES % 7.7 % (2.0-8.0); NEUTROPHILS % 68.8 % (40.0-76.0); PLATELET 353 x1000/uL (130-400); RED BLOOD CELL COUNT 2.78 mill/uL (4.7-6.1); RED CELL DISTRIBUTION WIDTH 18.5 % (11.6-14.6)
[2020-07-10] MEDS: LACTULOSE 20G/30ML UDC PO SCH (12:28)
[2020-07-10] MEDS: NAFCILLIN SODIUM 2,000 MG in SODIUM CHLORIDE 0.9% 100 ML IV SCH ×3 (12:28→20:27)
[2020-07-10] MEDS: LEVETIRACETAM 500MG TABLET PO SCH ×2 (14:12→21:09)
[2020-07-10] MEDS ORDERED: LORAZEPAM 2MG/ML CPJ IV NR (18:30)
[2020-07-10] MEDS ORDERED: LEVETIRACETAM 500MG TABLET PO SCH (21:00)
[2020-07-11] VITALS (23 sets, daily range): BP systolic 115–161; BP diastolic 61–93
[2020-07-11] MEDS: METOCLOPRAMIDE HCL 10MG/2ML VIAL IV SCH ×4 (00:08→19:34)
[2020-07-11] MEDS: LORAZEPAM 2MG/ML CPJ IV PRN ×4 (00:08→19:54)
[2020-07-11] MEDS: NAFCILLIN SODIUM 2,000 MG in SODIUM CHLORIDE 0.9% 100 ML IV SCH ×4 (00:09→12:31)
[2020-07-11 07:15] LABS: BASOPHILS % 0.9 % (0.0-2.0); EOSINOPHILS % 1.1 % (0.0-5.0); HEMATOCRIT. 25.4 % (42.0-52.0); HEMOGLOBIN. 8.2 g/dL (14.0-18.0); LYMPHOCYTES % 18.3 % (20.0-50.0); MEAN CORPUSCULAR HEMOGLOBIN 29.3 pg (28.0-32.0); MEAN CORPUSCULAR VOLUME 90.5 fL (80.0-94.0); MEAN PLATELET VOLUME 9.6 fl (7.4-10.4); MONOCYTES % 6.6 % (2.0-8.0); NEUTROPHILS % 73.1 % (40.0-76.0); PLATELET 339 x1000/uL (130-400); RED BLOOD CELL COUNT 2.81 mill/uL (4.7-6.1); RED CELL DISTRIBUTION WIDTH 19.2 % (11.6-14.6)
[2020-07-11] MEDS: MIDODRINE HCL 5MG TABLET PO SCH ×3 (07:30→17:30)
[2020-07-11 08:44] LABS: PHOSPHORUS 3.5 mg/dL (2.5-4.9)
[2020-07-11] MEDS: QUETIAPINE FUMARATE 25MG TABLET PO SCH ×2 (09:32→21:43)
[2020-07-11] MEDS: LACTULOSE 20G/30ML UDC PO SCH (09:32)
[2020-07-11] MEDS: MAGNESIUM OXIDE 400MG TABLET PO SCH (09:32)
[2020-07-11] MEDS: LEVETIRACETAM 500MG TABLET PO SCH ×2 (09:33→21:43)
[2020-07-11] MEDS: METOPROLOL TARTRATE 25MG TABLET GT SCH ×2 (09:34→21:44)
[2020-07-11] MEDS: AMMONIUM LACTATE 12% LOTION 240ML TOP SCH ×2 (09:35→17:36)
[2020-07-11] MEDS ORDERED: POTASSIUM CHLORIDE 20MEQ/PACKET PO NR (10:00)
[2020-07-11] MEDS ORDERED: MAGNESIUM 2 G PREMIX 50 ML IV NR (10:00)
[2020-07-11 11:56] LABS: BG BASE EXCESS -0.4 mmol/L (-2.0-2.0); BG CARBOXYHEMOGLOBIN 0.5 % (0.5-1.5); BG DEOXYHEMOGLOBIN 0.7 % (0.0-5.0); BG FRACTION INSPIRED OXYGEN 40; BG HCO3 ACT 23.3 mmol/L (22.0-26.0); BG METHEMOGLOBIN 0.3 % (0.0-1.5); BG OXYGEN SATURATION 99.3 % (92.0-98.5); BG OXYHEMOGLOBIN 98.5 % (94.0-97.0); BG PEEP (cmH2O) 0 cmH2O; BG PH 7.453 (7.350-7.450); BG PO2 162.2 mmHg (75.0-100.0); BG SAMPLE SITE RIGHT RADIAL; BG TOTAL HEMOGLOBIN 8.8 g/dL (12.0-18.0); BG VENT MODE VENT - AC
[2020-07-11] MEDS: MORPHINE SULFATE 4 MG/ML CPJ (NOT FOR IM USE) IV PRN ×2 (12:31→13:10)
[2020-07-12] VITALS (12 sets, daily range): BP systolic 129–161; BP diastolic 72–95
[2020-07-12] MEDS: MORPHINE SULFATE 4 MG/ML CPJ (NOT FOR IM USE) IV PRN ×2 (00:33→09:49)
[2020-07-12] MEDS: CLONIDINE 0.1MG TABLET PO PRN (04:30)
[2020-07-12] MEDS: NAFCILLIN SODIUM 2,000 MG in SODIUM CHLORIDE 0.9% 100 ML IV SCH ×7 (04:30→20:13)
[2020-07-12 06:52] LABS: BASOPHILS % 0.9 % (0.0-2.0); EOSINOPHILS % 0.3 % (0.0-5.0); HEMATOCRIT. 25.4 % (42.0-52.0); HEMOGLOBIN. 8.3 g/dL (14.0-18.0); LYMPHOCYTES % 13.3 % (20.0-50.0); MEAN CORPUSCULAR HEMOGLOBIN 29.4 pg (28.0-32.0); MEAN CORPUSCULAR VOLUME 90.4 fL (80.0-94.0); MEAN PLATELET VOLUME 9.3 fl (7.4-10.4); MONOCYTES % 5.1 % (2.0-8.0); NEUTROPHILS % 80.4 % (40.0-76.0); PLATELET 347 x1000/uL (130-400); RED CELL DISTRIBUTION WIDTH 20.7 % (11.6-14.6)
[2020-07-12 07:37] LABS: PHOSPHORUS 4.2 mg/dL (2.5-4.9)
[2020-07-12] MEDS: MAGNESIUM OXIDE 400MG TABLET PO SCH (09:28)
[2020-07-12] MEDS: LACTULOSE 20G/30ML UDC PO SCH (09:28)
[2020-07-12] MEDS: LEVETIRACETAM 500MG TABLET PO SCH ×2 (09:28→20:14)
[2020-07-12] MEDS: METOPROLOL TARTRATE 25MG TABLET GT SCH ×2 (09:29→20:14)
[2020-07-12] MEDS: QUETIAPINE FUMARATE 25MG TABLET PO SCH ×2 (09:29→20:13)
[2020-07-12] MEDS ORDERED: SODIUM CHLORIDE 0.45% 1,000 ML IV ONE (11:00)
[2020-07-12] MEDS: LORAZEPAM 2MG/ML CPJ IV PRN ×2 (11:46→16:05)
[2020-07-12] MEDS: AMMONIUM LACTATE 12% LOTION 240ML TOP SCH ×2 (13:36→17:06)
[2020-07-12] MEDS: HYDROCODONE/ACETAMINOPHEN 10/325MG TABLET PO PRN (14:10)
[2020-07-13] VITALS (12 sets, daily range): BP systolic 116–169; BP diastolic 73–95
[2020-07-13] MEDS: NAFCILLIN SODIUM 2,000 MG in SODIUM CHLORIDE 0.9% 100 ML IV SCH ×5 (00:12→20:18)
[2020-07-13] MEDS: LORAZEPAM 2MG/ML CPJ IV PRN ×3 (05:55→18:20)
[2020-07-13 07:42] LABS: BASOPHILS % 0.7 % (0.0-2.0); EOSINOPHILS % 0.9 % (0.0-5.0); HEMATOCRIT. 25.5 % (42.0-52.0); HEMOGLOBIN. 8.1 g/dL (14.0-18.0); LYMPHOCYTES % 17.6 % (20.0-50.0); MEAN CORPUSCULAR HEMOGLOBIN 29.1 pg (28.0-32.0); MEAN CORPUSCULAR VOLUME 91.4 fL (80.0-94.0); MEAN PLATELET VOLUME 9.8 fl (7.4-10.4); MONOCYTES % 5.3 % (2.0-8.0); NEUTROPHILS % 75.5 % (40.0-76.0); PLATELET 325 x1000/uL (130-400); RED BLOOD CELL COUNT 2.79 mill/uL (4.7-6.1); RED CELL DISTRIBUTION WIDTH 21.4 % (11.6-14.6)
[2020-07-13] MEDS: LEVETIRACETAM 500MG TABLET PO SCH ×2 (08:23→20:19)
[2020-07-13] MEDS: METOPROLOL TARTRATE 25MG TABLET GT SCH ×2 (08:24→20:19)
[2020-07-13] MEDS: LACTULOSE 20G/30ML UDC PO SCH ×2 (08:24→17:04)
[2020-07-13] MEDS: QUETIAPINE FUMARATE 25MG TABLET PO SCH ×2 (08:24→20:18)
[2020-07-13] MEDS: MORPHINE SULFATE 10 MG/ML CPJ IV PRN ×3 (08:25→23:23)
[2020-07-13] MEDS: AMMONIUM LACTATE 12% LOTION 240ML TOP SCH ×2 (08:26→17:04)
[2020-07-13] MEDS: DEXTROSE 5% WATER 1,000 ML IV SCH (11:36)
[2020-07-13] MEDS: CLONIDINE 0.1MG TABLET PO PRN (11:38)
[2020-07-13] MEDS: AMLODIPINE 5MG TABLET PO SCH (14:23)
[2020-07-14] VITALS (10 sets, daily range): BP systolic 124–162; BP diastolic 57–90
[2020-07-14] MEDS: DEXTROSE 5% WATER 1,000 ML IV SCH ×2 (01:14→13:40)
[2020-07-14] MEDS: NAFCILLIN SODIUM 2,000 MG in SODIUM CHLORIDE 0.9% 100 ML IV SCH ×6 (01:14→21:00)
[2020-07-14] MEDS: LORAZEPAM 2MG/ML CPJ IV PRN ×5 (01:15→18:28)
[2020-07-14] MEDS: MORPHINE SULFATE 10 MG/ML CPJ IV PRN ×2 (06:46→13:07)
[2020-07-14 06:51] LABS: CHLORIDE 129 mEq/L (98-107)
[2020-07-14] MEDS: LEVETIRACETAM 500MG TABLET PO SCH ×2 (08:16→21:00)
[2020-07-14] MEDS: QUETIAPINE FUMARATE 25MG TABLET PO SCH ×2 (08:16→21:00)
[2020-07-14] MEDS: AMLODIPINE 5MG TABLET PO SCH (08:17)
[2020-07-14] MEDS: AMMONIUM LACTATE 12% LOTION 240ML TOP SCH ×2 (08:17→17:21)
[2020-07-14] MEDS: LACTULOSE 20G/30ML UDC PO SCH ×2 (08:17→17:19)
[2020-07-14] MEDS: METOPROLOL TARTRATE 25MG TABLET GT SCH ×2 (08:17→21:00)
[2020-07-14] MEDS ORDERED: POTASSIUM CHLORIDE 20MEQ/PACKET PO NR (09:30)
[2020-07-14] MEDS ORDERED: POTASSIUM CHLORIDE INJ 40 MEQ in DEXT 5% WATER 250 ML IV NR (10:30)
[2020-07-14 12:27] LABS: BASOPHILS % 0.9 % (0.0-2.0); EOSINOPHILS % 1.5 % (0.0-5.0); HEMATOCRIT. 25.8 % (42.0-52.0); HEMOGLOBIN. 7.9 g/dL (14.0-18.0); LYMPHOCYTES % 25.4 % (20.0-50.0); MEAN CORPUSCULAR HEMOGLOBIN 28.6 pg (28.0-32.0); MEAN CORPUSCULAR VOLUME 93.2 fL (80.0-94.0); MEAN PLATELET VOLUME 9.7 fl (7.4-10.4); NEUTROPHILS % 65.2 % (40.0-76.0); PLATELET 307 x1000/uL (130-400); RED BLOOD CELL COUNT 2.77 mill/uL (4.7-6.1); RED CELL DISTRIBUTION WIDTH 21.2 % (11.6-14.6)
[2020-07-14] MEDS ORDERED: ACETAMINOPHEN 650MG/20.3ML UDC PO PRN (17:15)
[2020-07-15] VITALS (14 sets, daily range): BP systolic 123–169; BP diastolic 64–84
[2020-07-15] MEDS: NAFCILLIN SODIUM 2,000 MG in SODIUM CHLORIDE 0.9% 100 ML IV SCH ×6 (00:33→21:13)
[2020-07-15] MEDS: LORAZEPAM 2MG/ML CPJ IV PRN ×2 (00:39→20:29)
[2020-07-15] MEDS: DEXTROSE 5% WATER 1,000 ML IV SCH ×2 (02:55→17:31)
[2020-07-15] MEDS: MORPHINE SULFATE 10 MG/ML CPJ IV PRN ×2 (05:17→21:33)
[2020-07-15 08:28] LABS: BASOPHILS % 1.2 % (0.0-2.0); EOSINOPHILS % 2.9 % (0.0-5.0); HEMATOCRIT. 26.3 % (42.0-52.0); HEMOGLOBIN. 8.2 g/dL (14.0-18.0); LYMPHOCYTES % 27.3 % (20.0-50.0); MEAN CORPUSCULAR HEMOGLOBIN 28.6 pg (28.0-32.0); MEAN PLATELET VOLUME 10.1 fl (7.4-10.4); MONOCYTES % 7.9 % (2.0-8.0); NEUTROPHILS % 60.7 % (40.0-76.0); PLATELET 306 x1000/uL (130-400); RED BLOOD CELL COUNT 2.86 mill/uL (4.7-6.1); RED CELL DISTRIBUTION WIDTH 21.5 % (11.6-14.6)
[2020-07-15] MEDS: METOPROLOL TARTRATE 25MG TABLET GT SCH ×2 (08:33→21:14)
[2020-07-15] MEDS: LACTULOSE 20G/30ML UDC PO SCH ×2 (08:34→17:00)
[2020-07-15] MEDS: AMLODIPINE 5MG TABLET PO SCH (08:34)
[2020-07-15] MEDS: OMEPRAZOLE 20MG CAPSULE EXTENDED RELEASE PO SCH (08:34)
[2020-07-15] MEDS: LEVETIRACETAM 500MG TABLET PO SCH ×2 (08:34→21:13)
[2020-07-15] MEDS: QUETIAPINE FUMARATE 25MG TABLET PO SCH ×2 (08:35→21:13)
[2020-07-15] MEDS: AMMONIUM LACTATE 12% LOTION 240ML TOP SCH ×2 (08:35→18:45)
[2020-07-15 08:42] LABS: CHLORIDE 119 mEq/L (98-107)
[2020-07-15 08:54] LABS: PHOSPHORUS 4.1 mg/dL (2.5-4.9)
[2020-07-15 16:18] LABS: BG BASE EXCESS -1.6 mmol/L (-2.0-2.0); BG CARBOXYHEMOGLOBIN 0.7 % (0.5-1.5); BG DEOXYHEMOGLOBIN 9.7 % (0.0-5.0); BG FRACTION INSPIRED OXYGEN 40; BG HCO3 ACT 22.9 mmol/L (22.0-26.0); BG METHEMOGLOBIN 0.2 % (0.0-1.5); BG OXYGEN SATURATION 90.2 % (92.0-98.5); BG OXYHEMOGLOBIN 89.4 % (94.0-97.0); BG PCO2 37.8 mmHg (35.0-45.0); BG PH 7.401 (7.350-7.450); BG PO2 57.4 mmHg (75.0-100.0); BG SAMPLE SITE LEFT RADIAL; BG TOTAL HEMOGLOBIN 8.9 g/dL (12.0-18.0); BG TOTAL RESPIRATORY RATE 26 b/min; BG VENT MODE VENT - AC
[2020-07-15] MEDS ORDERED: POTASSIUM PHOS,M-BASIC-D-BASIC 20 MMOL in DEXT 5% WATER 243.3333 ML IV ONE (18:45)
[2020-07-15] MEDS ORDERED: MAGNESIUM 1 G PREMIX 100 ML IV ONE (20:30)
[2020-07-16] VITALS (26 sets, daily range): BP systolic 99–147; BP diastolic 48–92
[2020-07-16] MEDS: LORAZEPAM 2MG/ML CPJ IV PRN ×4 (01:07→23:41)
[2020-07-16] MEDS: NAFCILLIN SODIUM 2,000 MG in SODIUM CHLORIDE 0.9% 100 ML IV SCH ×6 (01:08→20:47)
[2020-07-16] MEDS: MORPHINE SULFATE 10 MG/ML CPJ IV PRN ×3 (03:58→20:55)
[2020-07-16] MEDS: DEXTROSE 5% WATER 1,000 ML IV SCH ×2 (05:46→11:07)
[2020-07-16 08:45] LABS: EOSINOPHILS % 1.9 % (0.0-5.0); HEMATOCRIT. 27.1 % (42.0-52.0); HEMOGLOBIN. 8.6 g/dL (14.0-18.0); LYMPHOCYTES % 21.4 % (20.0-50.0); MEAN CORPUSCULAR HEMOGLOBIN 29.4 pg (28.0-32.0); MEAN CORPUSCULAR VOLUME 92.8 fL (80.0-94.0); MEAN PLATELET VOLUME 10.2 fl (7.4-10.4); MONOCYTES % 4.8 % (2.0-8.0); NEUTROPHILS % 70.9 % (40.0-76.0); PLATELET 317 x1000/uL (130-400); RED BLOOD CELL COUNT 2.92 mill/uL (4.7-6.1); RED CELL DISTRIBUTION WIDTH 21.5 % (11.6-14.6)
[2020-07-16 08:49] LABS: PHOSPHORUS 4.5 mg/dL (2.5-4.9)
[2020-07-16] MEDS: QUETIAPINE FUMARATE 25MG TABLET PO SCH ×2 (08:50→20:54)
[2020-07-16] MEDS: AMLODIPINE 5MG TABLET PO SCH (08:51)
[2020-07-16] MEDS: LEVETIRACETAM 500MG TABLET PO SCH ×2 (08:51→20:54)
[2020-07-16] MEDS: METOPROLOL TARTRATE 25MG TABLET GT SCH ×2 (08:51→20:54)
[2020-07-16] MEDS: LACTULOSE 20G/30ML UDC PO SCH ×2 (08:51→17:00)
[2020-07-16] MEDS: OMEPRAZOLE 20MG CAPSULE EXTENDED RELEASE PO SCH (08:54)
[2020-07-16] MEDS: AMMONIUM LACTATE 12% LOTION 240ML TOP SCH ×2 (11:13→18:41)
[2020-07-16 14:27] LABS: BG CARBOXYHEMOGLOBIN 0.3 % (0.5-1.5); BG DEOXYHEMOGLOBIN 1.5 % (0.0-5.0); BG FRACTION INSPIRED OXYGEN 40; BG HCO3 ACT 23.6 mmol/L (22.0-26.0); BG METHEMOGLOBIN 0.2 % (0.0-1.5); BG OXYGEN SATURATION 98.5 % (92.0-98.5); BG PCO2 44.2 mmHg (35.0-45.0); BG PH 7.345 (7.350-7.450); BG PO2 115.2 mmHg (75.0-100.0); BG SAMPLE SITE RIGHT RADIAL; BG TOTAL HEMOGLOBIN 8.8 g/dL (12.0-18.0); BG TOTAL RESPIRATORY RATE 20 b/min; BG VENT MODE VENT - AC
[2020-07-17] VITALS (13 sets, daily range): BP systolic 101–125; BP diastolic 54–76
[2020-07-17] MEDS: NAFCILLIN SODIUM 2,000 MG in SODIUM CHLORIDE 0.9% 100 ML IV SCH ×6 (00:30→20:35)
[2020-07-17] MEDS: MORPHINE SULFATE 10 MG/ML CPJ IV PRN ×3 (02:24→23:50)
[2020-07-17] MEDS: LORAZEPAM 2MG/ML CPJ IV PRN (04:34)
[2020-07-17] MEDS: LACTULOSE 20G/30ML UDC PO SCH ×2 (09:00→16:17)
[2020-07-17] MEDS: AMLODIPINE 5MG TABLET PO SCH (09:00)
[2020-07-17] MEDS: OMEPRAZOLE 20MG CAPSULE EXTENDED RELEASE PO SCH (10:21)
[2020-07-17] MEDS: LEVETIRACETAM 500MG TABLET PO SCH ×2 (10:21→20:36)
[2020-07-17] MEDS: QUETIAPINE FUMARATE 25MG TABLET PO SCH ×2 (10:21→20:36)
[2020-07-17] MEDS: AMMONIUM LACTATE 12% LOTION 240ML TOP SCH ×2 (10:22→17:36)
[2020-07-17] MEDS: METOPROLOL TARTRATE 25MG TABLET GT SCH ×2 (10:24→20:36)
[2020-07-17 10:59] LABS: BASOPHILS % 1.4 % (0.0-2.0); EOSINOPHILS % 4.8 % (0.0-5.0); HEMATOCRIT. 31.4 % (42.0-52.0); LYMPHOCYTES % 20.9 % (20.0-50.0); MEAN CORPUSCULAR HEMOGLOBIN 28.8 pg (28.0-32.0); MEAN CORPUSCULAR VOLUME 100.2 fL (80.0-94.0); MEAN PLATELET VOLUME 11.2 fl (7.4-10.4); MONOCYTES % 4.5 % (2.0-8.0); NEUTROPHILS % 68.4 % (40.0-76.0); PLATELET 202 x1000/uL (130-400); RED BLOOD CELL COUNT 3.13 mill/uL (4.7-6.1); RED CELL DISTRIBUTION WIDTH 22.5 % (11.6-14.6)
[2020-07-17 13:06] LABS: PLATELET ESTIMATE NORMAL
[2020-07-17] MEDS: LORAZEPAM 2MG/ML CPJ IM PRN (20:35)
[2020-07-17] MEDS: SODIUM CHLORIDE 0.9% 1,000 ML IV SCH (20:37)
[2020-07-18] VITALS (12 sets, daily range): BP systolic 112–170; BP diastolic 52–87
[2020-07-18] MEDS: NAFCILLIN SODIUM 2,000 MG in SODIUM CHLORIDE 0.9% 100 ML IV SCH ×6 (01:45→20:30)
[2020-07-18 07:00] LABS: BASOPHILS % 1.7 % (0.0-2.0); EOSINOPHILS % 4.9 % (0.0-5.0); LYMPHOCYTES % 37.7 % (20.0-50.0); MEAN CORPUSCULAR HEMOGLOBIN 29.8 pg (28.0-32.0); MEAN CORPUSCULAR VOLUME 92.8 fL (80.0-94.0); MONOCYTES % 5.8 % (2.0-8.0); NEUTROPHILS % 49.9 % (40.0-76.0); RED BLOOD CELL COUNT 3.94 mill/uL (4.7-6.1); RED CELL DISTRIBUTION WIDTH 21.1 % (11.6-14.6)
[2020-07-18] MEDS: LORAZEPAM 2MG/ML CPJ IM PRN ×2 (08:22→16:44)
[2020-07-18 08:35] LABS: HEMATOCRIT. 36.5 % (42.0-52.0); HEMOGLOBIN. 11.7 g/dL (14.0-18.0)
[2020-07-18] MEDS: OMEPRAZOLE 20MG CAPSULE EXTENDED RELEASE PO SCH (09:00)
[2020-07-18] MEDS: LEVETIRACETAM 500MG TABLET PO SCH ×2 (09:00→20:29)
[2020-07-18] MEDS: AMLODIPINE 5MG TABLET PO SCH (09:01)
[2020-07-18] MEDS: QUETIAPINE FUMARATE 25MG TABLET PO SCH ×2 (09:01→20:29)
[2020-07-18] MEDS: LACTULOSE 20G/30ML UDC PO SCH ×2 (09:02→17:00)
[2020-07-18] MEDS: METOPROLOL TARTRATE 25MG TABLET GT SCH ×2 (09:02→20:29)
[2020-07-18] MEDS: AMMONIUM LACTATE 12% LOTION 240ML TOP SCH ×2 (09:03→18:00)
[2020-07-18] MEDS: SODIUM CHLORIDE 0.9% 1,000 ML IV SCH (09:03)
[2020-07-18] MEDS: MORPHINE SULFATE 10 MG/ML CPJ IV PRN (09:39)
[2020-07-18] MEDS ORDERED: DEXTROSE 50% WATER 50ML SYRINGE IV STA (11:00)
[2020-07-18] MEDS ORDERED: SODIUM POLYSTYRENE SULFONATE 15 G/60 ML BOT PO NR (11:00)
[2020-07-18] MEDS ORDERED: INSULIN REGULAR (HUMULIN R) UD 100 UNITS/ML SYR IV NR (11:00)
[2020-07-18] MEDS ORDERED: CALCIUM CHLORIDE 1,000 MG in DEXT 5% WATER 90 ML IV NR (11:00)
[2020-07-18] MEDS ORDERED: SODIUM BICARBONATE 8.4% 1 MEQ/ML 50ML SYR IV NR (11:00)
[2020-07-18] MEDS ORDERED: DEXTROSE 5% WATER 1,000 ML IV SCH (11:00)
[2020-07-18 15:25] LABS: PLATELET 274 x1000/uL (130-400)
[2020-07-19] VITALS (13 sets, daily range): BP systolic 115–162; BP diastolic 62–84
[2020-07-19] MEDS: NAFCILLIN SODIUM 2,000 MG in SODIUM CHLORIDE 0.9% 100 ML IV SCH ×6 (01:23→21:12)
[2020-07-19] MEDS: LORAZEPAM 2MG/ML CPJ IM PRN ×2 (01:26→23:00)
[2020-07-19 06:48] LABS: BASOPHILS % 1.3 % (0.0-2.0); EOSINOPHILS % 2.8 % (0.0-5.0); HEMATOCRIT. 27.6 % (42.0-52.0); HEMOGLOBIN. 8.7 g/dL (14.0-18.0); LYMPHOCYTES % 21.8 % (20.0-50.0); MEAN CORPUSCULAR HEMOGLOBIN 29.2 pg (28.0-32.0); MEAN CORPUSCULAR VOLUME 92.5 fL (80.0-94.0); MEAN PLATELET VOLUME 10.4 fl (7.4-10.4); MONOCYTES % 5.2 % (2.0-8.0); NEUTROPHILS % 68.9 % (40.0-76.0); PLATELET 288 x1000/uL (130-400); RED BLOOD CELL COUNT 2.98 mill/uL (4.7-6.1); RED CELL DISTRIBUTION WIDTH 20.9 % (11.6-14.6)
[2020-07-19 07:00] LABS: CHLORIDE 120 mEq/L (98-107)
[2020-07-19] MEDS: DEXTROSE 5% WATER 1,000 ML IV SCH ×2 (08:45→22:05)
[2020-07-19] MEDS: LEVETIRACETAM 500MG TABLET PO SCH ×2 (12:26→21:12)
[2020-07-19] MEDS: METOPROLOL TARTRATE 25MG TABLET GT SCH ×2 (12:27→21:13)
[2020-07-19] MEDS: AMLODIPINE 5MG TABLET PO SCH (12:27)
[2020-07-19] MEDS: QUETIAPINE FUMARATE 25MG TABLET PO SCH ×2 (12:27→21:13)
[2020-07-19] MEDS: OMEPRAZOLE 20MG CAPSULE EXTENDED RELEASE PO SCH (12:27)
[2020-07-19] MEDS: LACTULOSE 20G/30ML UDC PO SCH ×2 (12:28→17:00)
[2020-07-19] MEDS: AMMONIUM LACTATE 12% LOTION 240ML TOP SCH ×2 (12:28→17:00)
[2020-07-19] MEDS: MORPHINE SULFATE 10 MG/ML CPJ IV PRN (23:01)
[2020-07-20] VITALS (11 sets, daily range): BP systolic 112–152; BP diastolic 49–86
[2020-07-20] MEDS: NAFCILLIN SODIUM 2,000 MG in SODIUM CHLORIDE 0.9% 100 ML IV SCH ×5 (00:38→18:37)
[2020-07-20] MEDS: LORAZEPAM 2MG/ML CPJ IM PRN ×3 (05:06→23:28)
[2020-07-20] MEDS: MORPHINE SULFATE 10 MG/ML CPJ IV PRN ×2 (05:06→23:45)
[2020-07-20 06:39] LABS: BASOPHILS % 1.7 % (0.0-2.0); EOSINOPHILS % 3.9 % (0.0-5.0); HEMOGLOBIN. 9.1 g/dL (14.0-18.0); LYMPHOCYTES % 29.1 % (20.0-50.0); MEAN CORPUSCULAR HEMOGLOBIN 29.3 pg (28.0-32.0); MEAN CORPUSCULAR VOLUME 92.8 fL (80.0-94.0); MEAN PLATELET VOLUME 10.9 fl (7.4-10.4); NEUTROPHILS % 59.3 % (40.0-76.0); PLATELET 283 x1000/uL (130-400); RED BLOOD CELL COUNT 3.13 mill/uL (4.7-6.1); RED CELL DISTRIBUTION WIDTH 21.7 % (11.6-14.6)
[2020-07-20 06:43] LABS: CHLORIDE 119 mEq/L (98-107)
[2020-07-20 06:54] LABS: PHOSPHORUS 4.6 mg/dL (2.5-4.9)
[2020-07-20] MEDS: AMMONIUM LACTATE 12% LOTION 240ML TOP SCH ×2 (09:00→17:00)
[2020-07-20] MEDS ORDERED: MAGNESIUM 2 G PREMIX 50 ML IV NR (11:00)
[2020-07-20] MEDS ORDERED: POTASSIUM CHLORIDE INJ 40 MEQ in DEXT 5% WATER 250 ML IV SCH (11:00)
[2020-07-20] MEDS: LACTULOSE 20G/30ML UDC PO SCH ×2 (11:38→18:22)
[2020-07-20] MEDS: QUETIAPINE FUMARATE 25MG TABLET PO SCH ×2 (11:39→21:17)
[2020-07-20] MEDS: AMLODIPINE 5MG TABLET PO SCH (11:39)
[2020-07-20] MEDS: METOPROLOL TARTRATE 25MG TABLET GT SCH ×2 (11:39→21:18)
[2020-07-20] MEDS: LEVETIRACETAM 500MG TABLET PO SCH ×2 (11:40→21:17)
[2020-07-20] MEDS: DEXTROSE 5% WATER 1,000 ML IV SCH ×2 (11:40→23:28)
[2020-07-20] MEDS: OMEPRAZOLE 20MG CAPSULE EXTENDED RELEASE PO SCH (11:40)
[2020-07-21] VITALS (12 sets, daily range): BP systolic 124–158; BP diastolic 56–94
[2020-07-21] MEDS: MORPHINE SULFATE 10 MG/ML CPJ IV PRN ×2 (05:58→21:16)
[2020-07-21] MEDS: LORAZEPAM 2MG/ML CPJ IM PRN ×2 (05:58→21:16)
[2020-07-21] MEDS: OMEPRAZOLE 20MG CAPSULE EXTENDED RELEASE PO SCH (07:59)
[2020-07-21] MEDS: LACTULOSE 20G/30ML UDC PO SCH ×2 (08:58→17:50)
[2020-07-21] MEDS: LEVETIRACETAM 500MG TABLET PO SCH ×2 (08:58→20:56)
[2020-07-21] MEDS: AMLODIPINE 5MG TABLET PO SCH (08:58)
[2020-07-21] MEDS: METOPROLOL TARTRATE 25MG TABLET GT SCH ×2 (08:59→20:56)
[2020-07-21] MEDS: AMMONIUM LACTATE 12% LOTION 240ML TOP SCH ×2 (09:11→17:51)
[2020-07-21] MEDS: QUETIAPINE FUMARATE 25MG TABLET PO SCH ×2 (09:11→20:56)
[2020-07-21 10:06] LABS: BG BASE EXCESS -1.6 mmol/L (-2.0-2.0); BG CARBOXYHEMOGLOBIN 0.3 % (0.5-1.5); BG DEOXYHEMOGLOBIN 1.2 % (0.0-5.0); BG FRACTION INSPIRED OXYGEN 45; BG HCO3 ACT 23.9 mmol/L (22.0-26.0); BG METHEMOGLOBIN 0.3 % (0.0-1.5); BG OXYGEN SATURATION 98.8 % (92.0-98.5); BG OXYHEMOGLOBIN 98.2 % (94.0-97.0); BG PCO2 43.3 mmHg (35.0-45.0); BG PH 7.359 (7.350-7.450); BG PO2 142.7 mmHg (75.0-100.0); BG SAMPLE SITE RIGHT RADIAL; BG TOTAL HEMOGLOBIN 9.4 g/dL (12.0-18.0); BG VENT MODE VENT - AC
[2020-07-21 11:49] LABS: BASOPHILS % 1.2 % (0.0-2.0); EOSINOPHILS % 3.2 % (0.0-5.0); HEMATOCRIT. 27.6 % (42.0-52.0); HEMOGLOBIN. 8.7 g/dL (14.0-18.0); LYMPHOCYTES % 21.9 % (20.0-50.0); MEAN CORPUSCULAR HEMOGLOBIN 29.1 pg (28.0-32.0); MEAN CORPUSCULAR VOLUME 92.7 fL (80.0-94.0); MEAN PLATELET VOLUME 9.5 fl (7.4-10.4); MONOCYTES % 5.9 % (2.0-8.0); NEUTROPHILS % 67.8 % (40.0-76.0); PLATELET 276 x1000/uL (130-400); RED BLOOD CELL COUNT 2.98 mill/uL (4.7-6.1); RED CELL DISTRIBUTION WIDTH 21.8 % (11.6-14.6)
[2020-07-21 12:14] LABS: CHLORIDE 114 mEq/L (98-107)
[2020-07-21 12:19] LABS: PHOSPHORUS 3.9 mg/dL (2.5-4.9)
[2020-07-21] MEDS ORDERED: MAGNESIUM 2 G PREMIX 50 ML IV NR (13:00)
[2020-07-21] MEDS ORDERED: POTASSIUM CHLORIDE 20MEQ/PACKET PO SCH (13:00)
[2020-07-21] MEDS ORDERED: MAGNESIUM 4 G PREMIX 100 ML IV SCH (14:00)
[2020-07-21] MEDS: DEXTROSE 5% WATER 1,000 ML IV SCH (14:17)
[2020-07-21] MEDS ORDERED: LORAZEPAM 2MG/ML CPJ IM PRN (22:15)
[2020-07-22] VITALS (12 sets, daily range): BP systolic 121–154; BP diastolic 58–99
[2020-07-22] MEDS ORDERED: HALOPERIDOL LACTATE 5MG/ML VIAL IM PRN ×2 (01:15→02:00)
[2020-07-22] MEDS: LORAZEPAM 2MG/ML CPJ IV PRN ×3 (01:29→13:23)
[2020-07-22] MEDS: DEXTROSE 5% WATER 1,000 ML IV SCH ×2 (05:24→16:38)
[2020-07-22] MEDS: LACTULOSE 20G/30ML UDC PO SCH ×2 (08:39→16:41)
[2020-07-22] MEDS: AMLODIPINE 5MG TABLET PO SCH (08:39)
[2020-07-22] MEDS: QUETIAPINE FUMARATE 25MG TABLET PO SCH ×2 (08:39→20:28)
[2020-07-22] MEDS: LEVETIRACETAM 500MG TABLET PO SCH ×2 (08:40→20:29)
[2020-07-22] MEDS: METOPROLOL TARTRATE 25MG TABLET GT SCH ×2 (08:40→20:29)
[2020-07-22] MEDS: AMMONIUM LACTATE 12% LOTION 240ML TOP SCH ×2 (08:41→16:45)
[2020-07-22] MEDS: OMEPRAZOLE 20MG CAPSULE EXTENDED RELEASE PO SCH (08:56)
[2020-07-22] MEDS ORDERED: POTASSIUM CHLORIDE 20MEQ/PACKET PO NR (09:30)
[2020-07-22 10:11] LABS: CHLORIDE 117 mEq/L (98-107)
[2020-07-22] MEDS ORDERED: MAGNESIUM 4 G PREMIX 100 ML IV NR (11:00)
[2020-07-22] MEDS: NAFCILLIN SODIUM 2,000 MG in SODIUM CHLORIDE 0.9% 100 ML IV SCH ×2 (16:37→22:00)
[2020-07-22] MEDS: MORPHINE SULFATE 10 MG/ML CPJ IV PRN (17:26)
[2020-07-23] VITALS (17 sets, daily range): BP systolic 134–165; BP diastolic 66–91
[2020-07-23] MEDS: NAFCILLIN SODIUM 2,000 MG in SODIUM CHLORIDE 0.9% 100 ML IV SCH ×4 (04:00→22:35)
[2020-07-23] MEDS: LORAZEPAM 2MG/ML CPJ IV PRN ×3 (06:26→21:49)
[2020-07-23] MEDS: DEXTROSE 5% WATER 1,000 ML IV SCH (06:26)
[2020-07-23 06:46] LABS: CHLORIDE 117 mEq/L (98-107)
[2020-07-23] MEDS ORDERED: KCL 20MEQ/100ML PREMIX 100 ML IV ONE (07:30)
[2020-07-23] MEDS: LACTULOSE 20G/30ML UDC PO SCH ×2 (08:16→16:02)
[2020-07-23 08:34] LABS: BASOPHILS % 0.8 % (0.0-2.0); EOSINOPHILS % 1.7 % (0.0-5.0); LYMPHOCYTES % 15.1 % (20.0-50.0); MEAN CORPUSCULAR HEMOGLOBIN 30.7 pg (28.0-32.0); MEAN CORPUSCULAR VOLUME 94.7 fL (80.0-94.0); MEAN PLATELET VOLUME 10.5 fl (7.4-10.4); MONOCYTES % 5.1 % (2.0-8.0); NEUTROPHILS % 77.3 % (40.0-76.0); PLATELET 172 x1000/uL (130-400); RED BLOOD CELL COUNT 2.11 mill/uL (4.7-6.1); RED CELL DISTRIBUTION WIDTH 22.4 % (11.6-14.6)
[2020-07-23] MEDS ORDERED: POTASSIUM CHLORIDE INJ 60 MEQ in DEXT 5% WATER 500 ML IV SCH (09:00)
[2020-07-23 09:07] LABS: HEMOGLOBIN. 6.5 g/dL (14.0-18.0)
[2020-07-23] MEDS: METOPROLOL TARTRATE 25MG TABLET GT SCH ×2 (09:15→21:48)
[2020-07-23] MEDS: LEVETIRACETAM 500MG TABLET PO SCH ×2 (09:15→21:49)
[2020-07-23] MEDS: AMLODIPINE 5MG TABLET PO SCH (09:16)
[2020-07-23] MEDS: AMMONIUM LACTATE 12% LOTION 240ML TOP SCH ×2 (09:16→16:01)
[2020-07-23] MEDS: OMEPRAZOLE 20MG CAPSULE EXTENDED RELEASE PO SCH (09:18)
[2020-07-23] MEDS: QUETIAPINE FUMARATE 25MG TABLET PO SCH ×2 (10:03→21:48)
[2020-07-23] MEDS ORDERED: MAGNESIUM 4 G PREMIX 100 ML IV SCH (11:00)
[2020-07-23 20:11] LABS: HEMATOCRIT 27.3 % (42.0-52.0); HEMOGLOBIN 8.8 g/dL (14.0-18.0)
[2020-07-23 20:28] LABS: INR 1.3; PROTHROMBIN TIME 13.3 sec (9.6-11.0)
[2020-07-23] MEDS: IPRATROPIUM BROMIDE (0.02%) 0.5MG/2.5ML NEB HHN SCH (23:00)
[2020-07-24] VITALS (12 sets, daily range): BP systolic 129–159; BP diastolic 64–110
[2020-07-24] MEDS: NAFCILLIN SODIUM 2,000 MG in SODIUM CHLORIDE 0.9% 100 ML IV SCH ×4 (04:00→21:11)
[2020-07-24 04:32] LABS: CHLORIDE 115 mEq/L (98-107)
[2020-07-24 04:42] LABS: PHOSPHORUS 2.9 mg/dL (2.5-4.9)
[2020-07-24 04:53] LABS: BASOPHILS % 0.5 % (0.0-2.0); EOSINOPHILS % 1.9 % (0.0-5.0); HEMATOCRIT. 27.3 % (42.0-52.0); LYMPHOCYTES % 18.5 % (20.0-50.0); MEAN CORPUSCULAR HEMOGLOBIN 29.6 pg (28.0-32.0); MEAN CORPUSCULAR VOLUME 90.4 fL (80.0-94.0); MEAN PLATELET VOLUME 10.6 fl (7.4-10.4); MONOCYTES % 5.6 % (2.0-8.0); NEUTROPHILS % 73.5 % (40.0-76.0); PLATELET 230 x1000/uL (130-400); RED BLOOD CELL COUNT 3.03 mill/uL (4.7-6.1); RED CELL DISTRIBUTION WIDTH 21.9 % (11.6-14.6)
[2020-07-24] MEDS: IPRATROPIUM BROMIDE (0.02%) 0.5MG/2.5ML NEB HHN SCH ×4 (05:00→21:37)
[2020-07-24] MEDS: LORAZEPAM 2MG/ML CPJ IV PRN ×3 (06:29→20:32)
[2020-07-24] MEDS: LACTULOSE 20G/30ML UDC PO SCH ×2 (09:00→17:00)
[2020-07-24] MEDS ORDERED: POTASSIUM CHLORIDE 20MEQ/PACKET PO SCH (09:30)
[2020-07-24] MEDS: AMLODIPINE 5MG TABLET PO SCH (09:48)
[2020-07-24] MEDS: METOPROLOL TARTRATE 25MG TABLET GT SCH ×2 (09:49→21:11)
[2020-07-24] MEDS: LEVETIRACETAM 500MG TABLET PO SCH ×2 (09:49→21:11)
[2020-07-24] MEDS: QUETIAPINE FUMARATE 25MG TABLET PO SCH (09:49)
[2020-07-24] MEDS: AMMONIUM LACTATE 12% LOTION 240ML TOP SCH ×2 (09:50→17:05)
[2020-07-24] MEDS: OMEPRAZOLE 20MG CAPSULE EXTENDED RELEASE PO SCH (09:50)
[2020-07-24] MEDS ORDERED: HALOPERIDOL LACTATE 5MG/ML VIAL IM PRN (11:45)
[2020-07-25] VITALS (12 sets, daily range): BP systolic 129–154; BP diastolic 70–94
[2020-07-25] MEDS: LORAZEPAM 2MG/ML CPJ IV PRN ×5 (00:48→23:26)
[2020-07-25] MEDS: IPRATROPIUM BROMIDE (0.02%) 0.5MG/2.5ML NEB HHN SCH ×4 (03:25→21:23)
[2020-07-25] MEDS: NAFCILLIN SODIUM 2,000 MG in SODIUM CHLORIDE 0.9% 100 ML IV SCH ×4 (03:59→21:36)
[2020-07-25 07:20] LABS: BASOPHILS % 0.7 % (0.0-2.0); EOSINOPHILS % 1.9 % (0.0-5.0); HEMATOCRIT. 25.9 % (42.0-52.0); HEMOGLOBIN. 8.9 g/dL (14.0-18.0); LYMPHOCYTES % 18.9 % (20.0-50.0); MEAN CORPUSCULAR HEMOGLOBIN 30.7 pg (28.0-32.0); MEAN PLATELET VOLUME 10.5 fl (7.4-10.4); NEUTROPHILS % 72.5 % (40.0-76.0); PLATELET 221 x1000/uL (130-400); RED BLOOD CELL COUNT 2.88 mill/uL (4.7-6.1); RED CELL DISTRIBUTION WIDTH 21.4 % (11.6-14.6)
[2020-07-25 07:30] LABS: CHLORIDE 113 mEq/L (98-107)
[2020-07-25 07:43] LABS: PHOSPHORUS 3.3 mg/dL (2.5-4.9)
[2020-07-25] MEDS: METOPROLOL TARTRATE 25MG TABLET GT SCH ×2 (08:05→21:35)
[2020-07-25] MEDS: AMLODIPINE 5MG TABLET PO SCH (08:05)
[2020-07-25] MEDS: LEVETIRACETAM 500MG TABLET PO SCH ×2 (08:06→21:35)
[2020-07-25] MEDS: LACTULOSE 20G/30ML UDC PO SCH ×2 (08:06→16:17)
[2020-07-25] MEDS: AMMONIUM LACTATE 12% LOTION 240ML TOP SCH ×2 (08:06→16:25)
[2020-07-25] MEDS: OMEPRAZOLE 20MG CAPSULE EXTENDED RELEASE PO SCH (08:06)
[2020-07-25] MEDS ORDERED: QUETIAPINE FUMARATE 50MG TABLET PO SCH (09:00)
[2020-07-25] MEDS ORDERED: POTASSIUM CHLORIDE 20MEQ/PACKET PO SCH (10:00)
[2020-07-25] MEDS ORDERED: MAGNESIUM 4 G PREMIX 100 ML IV SCH (11:00)
[2020-07-26] VITALS (12 sets, daily range): BP systolic 129–153; BP diastolic 72–92
[2020-07-26] MEDS: IPRATROPIUM BROMIDE (0.02%) 0.5MG/2.5ML NEB HHN SCH ×4 (01:28→20:58)
[2020-07-26] MEDS: NAFCILLIN SODIUM 2,000 MG in SODIUM CHLORIDE 0.9% 100 ML IV SCH ×4 (03:28→20:38)
[2020-07-26 06:14] LABS: CHLORIDE 110 mEq/L (98-107)
[2020-07-26 06:18] LABS: BASOPHILS % 0.9 % (0.0-2.0); EOSINOPHILS % 3.1 % (0.0-5.0); HEMATOCRIT. 27.8 % (42.0-52.0); HEMOGLOBIN. 9.1 g/dL (14.0-18.0); MEAN CORPUSCULAR HEMOGLOBIN 29.5 pg (28.0-32.0); MEAN CORPUSCULAR VOLUME 90.6 fL (80.0-94.0); MEAN PLATELET VOLUME 10.6 fl (7.4-10.4); MONOCYTES % 6.7 % (2.0-8.0); NEUTROPHILS % 65.3 % (40.0-76.0); PLATELET 229 x1000/uL (130-400); RED BLOOD CELL COUNT 3.07 mill/uL (4.7-6.1); RED CELL DISTRIBUTION WIDTH 21.2 % (11.6-14.6)
[2020-07-26 06:19] LABS: PHOSPHORUS 3.3 mg/dL (2.5-4.9)
[2020-07-26] MEDS: METOPROLOL TARTRATE 25MG TABLET GT SCH ×2 (08:34→20:36)
[2020-07-26] MEDS: AMLODIPINE 5MG TABLET PO SCH (08:35)
[2020-07-26] MEDS: LEVETIRACETAM 500MG TABLET PO SCH ×2 (08:35→20:36)
[2020-07-26] MEDS: OMEPRAZOLE 20MG CAPSULE EXTENDED RELEASE PO SCH (08:35)
[2020-07-26] MEDS: QUETIAPINE FUMARATE 50MG TABLET PEG SCH ×2 (08:35→20:36)
[2020-07-26] MEDS: AMMONIUM LACTATE 12% LOTION 240ML TOP SCH ×2 (08:36→16:35)
[2020-07-26] MEDS: LACTULOSE 20G/30ML UDC PO SCH ×2 (08:36→16:35)
[2020-07-26] MEDS ORDERED: QUETIAPINE FUMARATE 50MG TABLET PO SCH (09:00)
[2020-07-26] MEDS: MAGNESIUM OXIDE 400MG TABLET PO SCH ×2 (10:18→16:34)
[2020-07-26] MEDS: POTASSIUM CHLORIDE 20MEQ/PACKET PO SCH ×2 (10:18→16:34)
[2020-07-26] MEDS: RACEPINEPHRINE 2.25% 0.5ML NEB VIAL HHN PRN ×2 (10:27→15:23)
[2020-07-26] MEDS: LORAZEPAM 2MG/ML CPJ IV PRN ×2 (10:59→17:59)
[2020-07-26] MEDS ORDERED: QUETIAPINE FUMARATE 50MG TABLET PEG SCH (21:00)
[2020-07-27] VITALS (11 sets, daily range): BP systolic 123–166; BP diastolic 63–88
[2020-07-27] MEDS: LORAZEPAM 2MG/ML CPJ IV PRN ×3 (01:15→16:02)
[2020-07-27] MEDS: NAFCILLIN SODIUM 2,000 MG in SODIUM CHLORIDE 0.9% 100 ML IV SCH ×4 (02:42→21:48)
[2020-07-27] MEDS: IPRATROPIUM BROMIDE (0.02%) 0.5MG/2.5ML NEB HHN SCH ×4 (03:57→20:55)
[2020-07-27] MEDS: OMEPRAZOLE 20MG CAPSULE EXTENDED RELEASE PO SCH (05:28)
[2020-07-27 06:57] LABS: BASOPHILS % 0.9 % (0.0-2.0); EOSINOPHILS % 3.5 % (0.0-5.0); HEMATOCRIT. 33.4 % (42.0-52.0); HEMOGLOBIN. 10.5 g/dL (14.0-18.0); LYMPHOCYTES % 30.3 % (20.0-50.0); MEAN CORPUSCULAR HEMOGLOBIN 29.1 pg (28.0-32.0); MEAN CORPUSCULAR VOLUME 92.5 fL (80.0-94.0); MEAN PLATELET VOLUME 10.6 fl (7.4-10.4); MONOCYTES % 8.7 % (2.0-8.0); NEUTROPHILS % 56.6 % (40.0-76.0); PLATELET 204 x1000/uL (130-400); RED BLOOD CELL COUNT 3.61 mill/uL (4.7-6.1); RED CELL DISTRIBUTION WIDTH 21.6 % (11.6-14.6)
[2020-07-27 07:04] LABS: CHLORIDE 113 mEq/L (98-107)
[2020-07-27 07:10] LABS: PHOSPHORUS 3.6 mg/dL (2.5-4.9)
[2020-07-27] MEDS: LACTULOSE 20G/30ML UDC PO SCH ×2 (09:37→16:01)
[2020-07-27] MEDS: AMMONIUM LACTATE 12% LOTION 240ML TOP SCH ×2 (09:37→16:02)
[2020-07-27] MEDS: MAGNESIUM OXIDE 400MG TABLET PO SCH ×2 (09:38→16:02)
[2020-07-27] MEDS: AMLODIPINE 5MG TABLET PO SCH (09:38)
[2020-07-27] MEDS: LEVETIRACETAM 500MG TABLET PO SCH ×2 (09:38→20:38)
[2020-07-27] MEDS: QUETIAPINE FUMARATE 50MG TABLET PEG SCH ×2 (09:38→20:38)
[2020-07-27] MEDS: METOPROLOL TARTRATE 25MG TABLET GT SCH ×2 (09:39→20:38)
[2020-07-27] MEDS ORDERED: MAGNESIUM 2 G PREMIX 50 ML IV NR (20:00)
[2020-07-28] VITALS (8 sets, daily range): BP systolic 118–148; BP diastolic 60–78
[2020-07-28] MEDS: IPRATROPIUM BROMIDE (0.02%) 0.5MG/2.5ML NEB HHN SCH ×4 (02:13→20:41)
[2020-07-28] MEDS: NAFCILLIN SODIUM 2,000 MG in SODIUM CHLORIDE 0.9% 100 ML IV SCH ×4 (04:14→21:44)
[2020-07-28 07:02] LABS: BASOPHILS % 1.2 % (0.0-2.0); EOSINOPHILS % 4.3 % (0.0-5.0); HEMATOCRIT. 27.6 % (42.0-52.0); LYMPHOCYTES % 29.4 % (20.0-50.0); MEAN CORPUSCULAR HEMOGLOBIN 29.8 pg (28.0-32.0); MEAN CORPUSCULAR VOLUME 91.6 fL (80.0-94.0); MEAN PLATELET VOLUME 10.9 fl (7.4-10.4); NEUTROPHILS % 58.1 % (40.0-76.0); PLATELET 202 x1000/uL (130-400); RED BLOOD CELL COUNT 3.01 mill/uL (4.7-6.1); RED CELL DISTRIBUTION WIDTH 21.2 % (11.6-14.6)
[2020-07-28 07:11] LABS: CHLORIDE 112 mEq/L (98-107)
[2020-07-28 07:17] LABS: PHOSPHORUS 4.3 mg/dL (2.5-4.9)
[2020-07-28] MEDS: POTASSIUM CHLORIDE 20MEQ/PACKET PO SCH (08:37)
[2020-07-28] MEDS: OMEPRAZOLE 20MG CAPSULE EXTENDED RELEASE PO SCH (08:38)
[2020-07-28] MEDS: METOPROLOL TARTRATE 25MG TABLET GT SCH ×2 (08:38→20:49)
[2020-07-28] MEDS: LACTULOSE 20G/30ML UDC PO SCH ×2 (08:38→16:17)
[2020-07-28] MEDS: AMLODIPINE 5MG TABLET PO SCH (08:39)
[2020-07-28] MEDS: QUETIAPINE FUMARATE 50MG TABLET PEG SCH ×2 (08:39→20:49)
[2020-07-28] MEDS: LEVETIRACETAM 500MG TABLET PO SCH ×2 (08:48→20:49)
[2020-07-28] MEDS: MAGNESIUM OXIDE 400MG TABLET PO SCH ×2 (08:48→16:23)
[2020-07-28] MEDS: AMMONIUM LACTATE 12% LOTION 240ML TOP SCH ×2 (08:49→16:17)
[2020-07-28] MEDS: LORAZEPAM 2MG/ML CPJ IV PRN ×2 (16:17→22:10)
[2020-07-29] VITALS (10 sets, daily range): BP systolic 133–155; BP diastolic 67–98
[2020-07-29] MEDS: NAFCILLIN SODIUM 2,000 MG in SODIUM CHLORIDE 0.9% 100 ML IV SCH ×4 (03:35→21:45)
[2020-07-29] MEDS: LORAZEPAM 2MG/ML CPJ IV PRN ×2 (03:41→09:18)
[2020-07-29] MEDS: OMEPRAZOLE 20MG CAPSULE EXTENDED RELEASE PO SCH (07:52)
[2020-07-29] MEDS: LACTULOSE 20G/30ML UDC PO SCH ×2 (09:00→17:00)
[2020-07-29] MEDS: POTASSIUM CHLORIDE 20MEQ/PACKET PO SCH (09:41)
[2020-07-29] MEDS: MAGNESIUM OXIDE 400MG TABLET PO SCH ×2 (09:41→17:31)
[2020-07-29] MEDS: QUETIAPINE FUMARATE 50MG TABLET PEG SCH ×2 (09:41→21:45)
[2020-07-29] MEDS: LEVETIRACETAM 500MG TABLET PO SCH ×2 (09:42→21:44)
[2020-07-29] MEDS: AMLODIPINE 5MG TABLET PO SCH (09:42)
[2020-07-29] MEDS: METOPROLOL TARTRATE 25MG TABLET GT SCH ×2 (09:42→21:45)
[2020-07-29] MEDS: IPRATROPIUM BROMIDE (0.02%) 0.5MG/2.5ML NEB HHN SCH ×3 (09:51→21:43)
[2020-07-30] VITALS (7 sets, daily range): BP systolic 120–154; BP diastolic 48–85
[2020-07-30] MEDS: NAFCILLIN SODIUM 2,000 MG in SODIUM CHLORIDE 0.9% 100 ML IV SCH ×4 (05:09→22:00)
[2020-07-30] MEDS: IPRATROPIUM BROMIDE (0.02%) 0.5MG/2.5ML NEB HHN SCH ×4 (05:19→22:23)
[2020-07-30 06:58] LABS: CHLORIDE 118 mEq/L (98-107)
[2020-07-30 07:27] LABS: BASOPHILS % 1.1 % (0.0-2.0); EOSINOPHILS % 2.2 % (0.0-5.0); HEMATOCRIT. 26.5 % (42.0-52.0); HEMOGLOBIN. 8.4 g/dL (14.0-18.0); LYMPHOCYTES % 25.1 % (20.0-50.0); MEAN CORPUSCULAR VOLUME 91.2 fL (80.0-94.0); MEAN PLATELET VOLUME 10.9 fl (7.4-10.4); MONOCYTES % 6.9 % (2.0-8.0); NEUTROPHILS % 64.7 % (40.0-76.0); PLATELET 195 x1000/uL (130-400); RED CELL DISTRIBUTION WIDTH 20.8 % (11.6-14.6)
[2020-07-30] MEDS: OMEPRAZOLE 20MG CAPSULE EXTENDED RELEASE PO SCH (07:50)
[2020-07-30] MEDS: LACTULOSE 20G/30ML UDC PO SCH ×2 (09:00→16:18)
[2020-07-30] MEDS: METOPROLOL TARTRATE 25MG TABLET GT SCH ×2 (09:54→21:58)
[2020-07-30] MEDS: LEVETIRACETAM 500MG TABLET PO SCH ×2 (09:54→21:58)
[2020-07-30] MEDS: AMLODIPINE 5MG TABLET PO SCH (09:55)
[2020-07-30] MEDS: POTASSIUM CHLORIDE 20MEQ/PACKET PO SCH (09:56)
[2020-07-30] MEDS ORDERED: POTASSIUM CHLORIDE INJ 40 MEQ in DEXT 5% WATER 250 ML IV SCH (11:30)
[2020-07-30] MEDS: QUETIAPINE FUMARATE 50MG TABLET PEG SCH ×2 (12:19→21:58)
[2020-07-30] MEDS: MAGNESIUM OXIDE 400MG TABLET PO SCH ×2 (15:06→17:27)
[2020-07-30] MEDS: LORAZEPAM 2MG/ML CPJ IV PRN (20:29)
[2020-07-31] VITALS: BP 117/58
[2020-07-31 02:00] VITALS: BP 138/80
[2020-07-31 04:00] VITALS: BP 138/83
[2020-07-31] MEDS: IPRATROPIUM BROMIDE (0.02%) 0.5MG/2.5ML NEB HHN SCH ×4 (04:26→21:21)
[2020-07-31] MEDS: NAFCILLIN SODIUM 2,000 MG in SODIUM CHLORIDE 0.9% 100 ML IV SCH ×4 (04:54→22:28)
[2020-07-31 06:00] VITALS: BP 162/80
[2020-07-31 08:12] LABS: BASOPHILS % 0.8 % (0.0-2.0); EOSINOPHILS % 1.7 % (0.0-5.0); HEMOGLOBIN. 8.4 g/dL (14.0-18.0); LYMPHOCYTES % 28.5 % (20.0-50.0); MEAN CORPUSCULAR HEMOGLOBIN 29.1 pg (28.0-32.0); MEAN CORPUSCULAR VOLUME 90.7 fL (80.0-94.0); MEAN PLATELET VOLUME 10.5 fl (7.4-10.4); MONOCYTES % 7.6 % (2.0-8.0); NEUTROPHILS % 61.4 % (40.0-76.0); PLATELET 201 x1000/uL (130-400); RED BLOOD CELL COUNT 2.87 mill/uL (4.7-6.1); RED CELL DISTRIBUTION WIDTH 19.9 % (11.6-14.6)
[2020-07-31 08:26] LABS: CHLORIDE 117 mEq/L (98-107)
[2020-07-31] MEDS: POTASSIUM CHLORIDE 20MEQ/PACKET PO SCH (08:31)
[2020-07-31] MEDS: MAGNESIUM OXIDE 400MG TABLET PO SCH ×2 (08:32→16:56)
[2020-07-31] MEDS: LACTULOSE 20G/30ML UDC PO SCH ×2 (08:32→16:56)
[2020-07-31] MEDS: LEVETIRACETAM 500MG TABLET PO SCH ×2 (08:33→20:36)
[2020-07-31] MEDS: QUETIAPINE FUMARATE 50MG TABLET PEG SCH ×2 (08:33→20:36)
[2020-07-31] MEDS: AMLODIPINE 5MG TABLET PO SCH (08:34)
[2020-07-31] MEDS: METOPROLOL TARTRATE 25MG TABLET GT SCH (08:34)
[2020-07-31] MEDS: OMEPRAZOLE 20MG CAPSULE EXTENDED RELEASE PO SCH (08:34)
[2020-07-31 12:00] VITALS: BP 152/77
[2020-07-31 18:00] VITALS: BP 170/85
[2020-07-31] MEDS: LORAZEPAM 2MG/ML CPJ IV PRN (19:09)
[2020-07-31] MEDS: METOPROLOL TARTRATE 50MG TABLET GT SCH (20:36)
[2020-08-01] VITALS (7 sets, daily range): BP systolic 127–158; BP diastolic 67–87
[2020-08-01] MEDS: IPRATROPIUM BROMIDE (0.02%) 0.5MG/2.5ML NEB HHN SCH ×4 (01:17→20:44)
[2020-08-01] MEDS: LORAZEPAM 2MG/ML CPJ IV PRN (02:16)
[2020-08-01] MEDS: NAFCILLIN SODIUM 2,000 MG in SODIUM CHLORIDE 0.9% 100 ML IV SCH ×3 (04:28→17:28)
[2020-08-01] MEDS: LACTULOSE 20G/30ML UDC PO SCH ×2 (08:39→17:27)
[2020-08-01] MEDS: MAGNESIUM OXIDE 400MG TABLET PO SCH ×2 (08:40→17:27)
[2020-08-01] MEDS: QUETIAPINE FUMARATE 50MG TABLET PEG SCH ×2 (08:40→21:41)
[2020-08-01] MEDS: AMLODIPINE 5MG TABLET PO SCH (08:41)
[2020-08-01] MEDS: METOPROLOL TARTRATE 50MG TABLET GT SCH ×2 (08:41→21:45)
[2020-08-01] MEDS: OMEPRAZOLE 20MG CAPSULE EXTENDED RELEASE PO SCH (08:42)
[2020-08-01] MEDS: LEVETIRACETAM 500MG TABLET PO SCH ×2 (08:42→21:41)
[2020-08-01] MEDS: POTASSIUM CHLORIDE 20MEQ/PACKET PO SCH (08:43)
[2020-08-01 09:18] LABS: BASOPHILS % 0.6 % (0.0-2.0); EOSINOPHILS % 1.2 % (0.0-5.0); HEMATOCRIT. 29.6 % (42.0-52.0); HEMOGLOBIN. 9.4 g/dL (14.0-18.0); MEAN CORPUSCULAR HEMOGLOBIN 29.4 pg (28.0-32.0); MEAN CORPUSCULAR VOLUME 92.2 fL (80.0-94.0); MEAN PLATELET VOLUME 11.2 fl (7.4-10.4); MONOCYTES % 6.8 % (2.0-8.0); NEUTROPHILS % 66.4 % (40.0-76.0); PLATELET 272 x1000/uL (130-400); RED BLOOD CELL COUNT 3.21 mill/uL (4.7-6.1); RED CELL DISTRIBUTION WIDTH 20.6 % (11.6-14.6)
[2020-08-01 09:27] LABS: CHLORIDE 112 mEq/L (98-107)
[2020-08-01 09:34] LABS: PHOSPHORUS 3.9 mg/dL (2.5-4.9)
[2020-08-01] MEDS ORDERED: MAGNESIUM 2 G PREMIX 50 ML IV SCH (12:00)
[2020-08-02] VITALS (11 sets, daily range): BP systolic 112–148; BP diastolic 42–85
[2020-08-02] MEDS: IPRATROPIUM BROMIDE (0.02%) 0.5MG/2.5ML NEB HHN SCH ×4 (00:57→21:52)
[2020-08-02] MEDS: NAFCILLIN SODIUM 2,000 MG in SODIUM CHLORIDE 0.9% 100 ML IV SCH ×5 (05:15→21:45)
[2020-08-02] MEDS: LACTULOSE 20G/30ML UDC PO SCH ×2 (09:02→17:06)
[2020-08-02] MEDS: METOPROLOL TARTRATE 50MG TABLET GT SCH ×2 (09:03→21:37)
[2020-08-02] MEDS: AMLODIPINE 10MG TABLET PO SCH (09:03)
[2020-08-02] MEDS: POTASSIUM CHLORIDE 20MEQ/PACKET PO SCH (09:04)
[2020-08-02] MEDS: OMEPRAZOLE 20MG CAPSULE EXTENDED RELEASE PO SCH (09:04)
[2020-08-02] MEDS: MAGNESIUM OXIDE 400MG TABLET PO SCH ×2 (09:04→17:06)
[2020-08-02] MEDS: LEVETIRACETAM 500MG TABLET PO SCH ×2 (09:04→21:37)
[2020-08-02] MEDS: QUETIAPINE FUMARATE 50MG TABLET PEG SCH ×2 (10:18→21:37)
[2020-08-02 12:15] LABS: EOSINOPHILS % 1.9 % (0.0-5.0); HEMATOCRIT. 26.6 % (42.0-52.0); HEMOGLOBIN. 8.5 g/dL (14.0-18.0); LYMPHOCYTES % 22.4 % (20.0-50.0); MEAN CORPUSCULAR HEMOGLOBIN 29.3 pg (28.0-32.0); MEAN CORPUSCULAR VOLUME 91.3 fL (80.0-94.0); MEAN PLATELET VOLUME 10.2 fl (7.4-10.4); MONOCYTES % 6.5 % (2.0-8.0); NEUTROPHILS % 68.2 % (40.0-76.0); PLATELET 216 x1000/uL (130-400); RED BLOOD CELL COUNT 2.92 mill/uL (4.7-6.1); RED CELL DISTRIBUTION WIDTH 20.1 % (11.6-14.6)
[2020-08-02 12:26] LABS: CHLORIDE 115 mEq/L (98-107)
[2020-08-02 12:37] LABS: PHOSPHORUS 3.7 mg/dL (2.5-4.9)
[2020-08-03] VITALS (72 sets, daily range): BP systolic 35–217; BP diastolic 22–110
[2020-08-03] MEDS: LORAZEPAM 2MG/ML CPJ IV PRN (03:46)
[2020-08-03] MEDS: NAFCILLIN SODIUM 2,000 MG in SODIUM CHLORIDE 0.9% 100 ML IV SCH ×4 (04:00→22:04)
[2020-08-03] MEDS ORDERED: MIDAZOLAM 100MG/100ML PMX 100 ML IV PRN ×2 (04:00→04:30)
[2020-08-03] MEDS: MIDAZOLAM HCL 100 MG in DEXT 5% WATER 100 ML IV PRN (04:37)
[2020-08-03] MEDS: IPRATROPIUM BROMIDE (0.02%) 0.5MG/2.5ML NEB HHN SCH ×4 (05:56→20:41)
[2020-08-03 06:51] LABS: BG BASE EXCESS -5.9 mmol/L (-2.0-2.0); BG CARBOXYHEMOGLOBIN 0.4 % (0.5-1.5); BG DEOXYHEMOGLOBIN 3.4 % (0.0-5.0); BG HCO3 ACT 22.7 mmol/L (22.0-26.0); BG METHEMOGLOBIN 0.2 % (0.0-1.5); BG OXYGEN SATURATION 96.6 % (92.0-98.5); BG PCO2 60.1 mmHg (35.0-45.0); BG PH 7.195 (7.350-7.450); BG PO2 102.3 mmHg (75.0-100.0); BG TOTAL HEMOGLOBIN 11.1 g/dL (12.0-18.0)
[2020-08-03] MEDS: PHENYLEPHRINE 100 MG in DEXT 5% WATER 240 ML IV PRN ×2 (07:26→13:35)
[2020-08-03] MEDS: METOPROLOL TARTRATE 50MG TABLET GT SCH ×2 (08:01→21:00)
[2020-08-03 08:02] LABS: CHLORIDE 115 mEq/L (98-107)
[2020-08-03] MEDS: AMLODIPINE 10MG TABLET PO SCH (08:02)
[2020-08-03 08:19] LABS: BASOPHILS % 0.6 % (0.0-2.0); EOSINOPHILS % 0.2 % (0.0-5.0); HEMATOCRIT. 30.4 % (42.0-52.0); HEMOGLOBIN. 9.6 g/dL (14.0-18.0); LYMPHOCYTES % 7.9 % (20.0-50.0); MEAN CORPUSCULAR HEMOGLOBIN 29.3 pg (28.0-32.0); MEAN CORPUSCULAR VOLUME 92.2 fL (80.0-94.0); MEAN PLATELET VOLUME 10.5 fl (7.4-10.4); MONOCYTES % 7.9 % (2.0-8.0); NEUTROPHILS % 83.4 % (40.0-76.0); PLATELET 333 x1000/uL (130-400); RED BLOOD CELL COUNT 3.29 mill/uL (4.7-6.1); RED CELL DISTRIBUTION WIDTH 20.7 % (11.6-14.6)
[2020-08-03] MEDS: LACTULOSE 20G/30ML UDC PO SCH ×2 (09:00→16:12)
[2020-08-03] MEDS: LEVETIRACETAM 500MG TABLET PO SCH ×2 (09:34→22:04)
[2020-08-03] MEDS: OMEPRAZOLE 20MG CAPSULE EXTENDED RELEASE PO SCH (09:34)
[2020-08-03] MEDS: MAGNESIUM OXIDE 400MG TABLET PO SCH ×2 (09:34→16:29)
[2020-08-03] MEDS: QUETIAPINE FUMARATE 50MG TABLET PEG SCH ×2 (09:35→22:10)
[2020-08-03] MEDS: POTASSIUM CHLORIDE 20MEQ/PACKET PO SCH (09:43)
[2020-08-03 10:13] LABS: BG FRACTION INSPIRED OXYGEN 100; BG SAMPLE SITE RIGHT RADIAL; BG VENT MODE VENT - AC
[2020-08-03 12:43] LABS: BG BASE EXCESS -1.3 mmol/L (-2.0-2.0); BG CARBOXYHEMOGLOBIN 0.3 % (0.5-1.5); BG DEOXYHEMOGLOBIN 0.5 % (0.0-5.0); BG HCO3 ACT 23.7 mmol/L (22.0-26.0); BG OXYGEN SATURATION 99.5 % (92.0-98.5); BG OXYHEMOGLOBIN 99.2 % (94.0-97.0); BG PCO2 40.8 mmHg (35.0-45.0); BG PH 7.382 (7.350-7.450); BG PO2 304.9 mmHg (75.0-100.0); BG SAMPLE SITE RIGHT RADIAL; BG VENT MODE VENT - AC
[2020-08-03] MEDS ORDERED: EPINEPHRINE 0.1MG/ML (1:10,000) 10ML SYR ONE (13:00)
[2020-08-03] MEDS ORDERED: NOREPINEPHRINE 8MG/250ML PMX 250 ML IV PRN (13:15)
[2020-08-03] MEDS ORDERED: NOREPINEPHRINE 8 MG in DEXTROSE 5% WATER 250 ML IV PRN (13:15)
[2020-08-03] MEDS ORDERED: VASOPRESSIN 20 UNIT in SODIUM CHLORIDE 0.9% 99 ML IV PRN (13:15)
[2020-08-03] MEDS: FENTANYL CITRATE/PF 2,500 MCG in SODIUM CHLORIDE 0.9% 200 ML IV PRN (17:36)
[2020-08-04] VITALS (68 sets, daily range): BP systolic 90–158; BP diastolic 36–85
[2020-08-04] MEDS: IPRATROPIUM BROMIDE (0.02%) 0.5MG/2.5ML NEB HHN SCH ×3 (02:57→14:00)
[2020-08-04] MEDS: NAFCILLIN SODIUM 2,000 MG in SODIUM CHLORIDE 0.9% 100 ML IV SCH ×3 (04:42→17:18)
[2020-08-04] MEDS: FENTANYL CITRATE/PF 2,500 MCG in SODIUM CHLORIDE 0.9% 200 ML IV PRN ×2 (06:24→18:53)
[2020-08-04] MEDS: OMEPRAZOLE 20MG CAPSULE EXTENDED RELEASE PO SCH (07:30)
[2020-08-04 08:27] LABS: EOSINOPHILS % 2.6 % (0.0-5.0); HEMATOCRIT. 28.4 % (42.0-52.0); LYMPHOCYTES % 33.1 % (20.0-50.0); MEAN CORPUSCULAR HEMOGLOBIN 29.3 pg (28.0-32.0); MEAN CORPUSCULAR VOLUME 92.5 fL (80.0-94.0); MEAN PLATELET VOLUME 10.1 fl (7.4-10.4); MONOCYTES % 7.8 % (2.0-8.0); NEUTROPHILS % 55.5 % (40.0-76.0); PLATELET 227 x1000/uL (130-400); RED BLOOD CELL COUNT 3.07 mill/uL (4.7-6.1); RED CELL DISTRIBUTION WIDTH 20.7 % (11.6-14.6)
[2020-08-04 08:41] LABS: CHLORIDE 117 mEq/L (98-107)
[2020-08-04] MEDS: LEVETIRACETAM 500MG TABLET PO SCH ×2 (09:00→20:12)
[2020-08-04] MEDS: LACTULOSE 20G/30ML UDC PO SCH ×2 (09:00→17:18)
[2020-08-04] MEDS: AMLODIPINE 10MG TABLET PO SCH (09:00)
[2020-08-04] MEDS: MAGNESIUM OXIDE 400MG TABLET PO SCH ×2 (09:00→17:18)
[2020-08-04] MEDS: METOPROLOL TARTRATE 50MG TABLET GT SCH ×2 (11:56→19:50)
[2020-08-04] MEDS: QUETIAPINE FUMARATE 50MG TABLET PEG SCH ×2 (11:57→20:12)
[2020-08-04] MEDS: DEXTROSE 5% WATER 1,000 ML IV SCH ×2 (12:43→19:51)
[2020-08-04] MEDS: LORAZEPAM 2MG/ML CPJ IV PRN (15:44)
[2020-08-04] MEDS: MIDAZOLAM HCL 100 MG in DEXT 5% WATER 100 ML IV PRN (21:48)
[2020-08-05] VITALS (87 sets, daily range): BP systolic 96–168; BP diastolic 45–104
[2020-08-05] MEDS: IPRATROPIUM BROMIDE (0.02%) 0.5MG/2.5ML NEB HHN SCH ×5 (00:21→20:49)
[2020-08-05] MEDS: FENTANYL CITRATE/PF 2,500 MCG in SODIUM CHLORIDE 0.9% 200 ML IV PRN ×2 (04:08→13:34)
[2020-08-05] MEDS: OMEPRAZOLE 20MG CAPSULE EXTENDED RELEASE PO SCH (06:32)
[2020-08-05 07:02] LABS: CHLORIDE 119 mEq/L (98-107)
[2020-08-05 07:20] LABS: PHOSPHORUS 4.2 mg/dL (2.5-4.9)
[2020-08-05 08:24] LABS: BASOPHILS % 0.3 % (0.0-2.0); EOSINOPHILS % 5.6 % (0.0-5.0); HEMOGLOBIN. 8.9 g/dL (14.0-18.0); LYMPHOCYTES % 28.5 % (20.0-50.0); MEAN CORPUSCULAR HEMOGLOBIN 29.8 pg (28.0-32.0); MEAN CORPUSCULAR VOLUME 93.3 fL (80.0-94.0); MONOCYTES % 7.1 % (2.0-8.0); NEUTROPHILS % 58.5 % (40.0-76.0); RED CELL DISTRIBUTION WIDTH 20.8 % (11.6-14.6)
[2020-08-05] MEDS: LEVETIRACETAM 500MG TABLET PO SCH ×2 (08:41→21:23)
[2020-08-05] MEDS: LACTULOSE 20G/30ML UDC PO SCH ×2 (08:41→17:07)
[2020-08-05] MEDS: AMLODIPINE 10MG TABLET PO SCH (08:42)
[2020-08-05] MEDS: MAGNESIUM OXIDE 400MG TABLET PO SCH ×2 (08:42→17:07)
[2020-08-05] MEDS: METOPROLOL TARTRATE 50MG TABLET GT SCH ×2 (08:42→21:23)
[2020-08-05] MEDS: QUETIAPINE FUMARATE 50MG TABLET PEG SCH ×2 (08:43→21:24)
[2020-08-05 11:48] LABS: PLATELET 216 x1000/uL (130-400)
[2020-08-05] MEDS: MIDAZOLAM HCL 100 MG in DEXT 5% WATER 100 ML IV PRN (13:35)
[2020-08-05] MEDS: LORAZEPAM 2MG/ML CPJ IV PRN ×2 (13:35→21:18)
[2020-08-05] MEDS: DEXTROSE 5% WATER 1,000 ML IV SCH (21:24)
[2020-08-06] VITALS (94 sets, daily range): BP systolic 72–141; BP diastolic 41–107
[2020-08-06] MEDS: FENTANYL CITRATE/PF 2,500 MCG in SODIUM CHLORIDE 0.9% 200 ML IV PRN ×3 (00:13→22:34)
[2020-08-06] MEDS: IPRATROPIUM BROMIDE (0.02%) 0.5MG/2.5ML NEB HHN SCH ×4 (02:25→21:26)
[2020-08-06] MEDS: MIDAZOLAM HCL 100 MG in DEXT 5% WATER 100 ML IV PRN ×2 (04:22→16:57)
[2020-08-06 06:08] LABS: BASOPHILS % 0.6 % (0.0-2.0); EOSINOPHILS % 4.8 % (0.0-5.0); HEMATOCRIT. 27.3 % (42.0-52.0); HEMOGLOBIN. 8.6 g/dL (14.0-18.0); LYMPHOCYTES % 20.8 % (20.0-50.0); MEAN CORPUSCULAR HEMOGLOBIN 30.2 pg (28.0-32.0); MEAN CORPUSCULAR VOLUME 95.2 fL (80.0-94.0); MEAN PLATELET VOLUME 10.9 fl (7.4-10.4); MONOCYTES % 7.2 % (2.0-8.0); NEUTROPHILS % 66.6 % (40.0-76.0); PLATELET 219 x1000/uL (130-400); RED BLOOD CELL COUNT 2.86 mill/uL (4.7-6.1); RED CELL DISTRIBUTION WIDTH 20.6 % (11.6-14.6)
[2020-08-06 06:14] LABS: CHLORIDE 116 mEq/L (98-107)
[2020-08-06] MEDS ORDERED: LORAZEPAM 2MG/ML CPJ IV PRN (07:15)
[2020-08-06] MEDS: LACTULOSE 20G/30ML UDC PO SCH ×2 (09:08→18:28)
[2020-08-06] MEDS: OMEPRAZOLE 20MG CAPSULE EXTENDED RELEASE PO SCH (09:08)
[2020-08-06] MEDS: LEVETIRACETAM 500MG TABLET PO SCH ×2 (09:08→20:09)
[2020-08-06] MEDS: AMLODIPINE 10MG TABLET PO SCH (09:08)
[2020-08-06] MEDS: MAGNESIUM OXIDE 400MG TABLET PO SCH ×2 (09:08→18:28)
[2020-08-06] MEDS: QUETIAPINE FUMARATE 50MG TABLET PEG SCH ×2 (09:09→20:09)
[2020-08-06] MEDS: DEXTROSE 5% WATER 1,000 ML IV SCH ×2 (12:25→18:57)
[2020-08-07] VITALS (62 sets, daily range): BP systolic 96–148; BP diastolic 42–92
[2020-08-07] MEDS: MIDAZOLAM HCL 100 MG in DEXT 5% WATER 100 ML IV PRN ×2 (02:13→13:42)
[2020-08-07] MEDS: IPRATROPIUM BROMIDE (0.02%) 0.5MG/2.5ML NEB HHN SCH ×4 (02:58→20:45)
[2020-08-07 06:04] LABS: BASOPHILS % 0.5 % (0.0-2.0); EOSINOPHILS % 4.5 % (0.0-5.0); HEMATOCRIT. 23.3 % (42.0-52.0); HEMOGLOBIN. 7.6 g/dL (14.0-18.0); LYMPHOCYTES % 28.6 % (20.0-50.0); MEAN CORPUSCULAR HEMOGLOBIN 30.2 pg (28.0-32.0); MEAN CORPUSCULAR VOLUME 93.1 fL (80.0-94.0); MEAN PLATELET VOLUME 10.3 fl (7.4-10.4); MONOCYTES % 8.9 % (2.0-8.0); NEUTROPHILS % 57.5 % (40.0-76.0); PLATELET 187 x1000/uL (130-400); RED CELL DISTRIBUTION WIDTH 19.7 % (11.6-14.6)
[2020-08-07 06:58] LABS: CHLORIDE 114 mEq/L (98-107)
[2020-08-07] MEDS: FENTANYL CITRATE/PF 2,500 MCG in SODIUM CHLORIDE 0.9% 200 ML IV PRN ×2 (08:17→17:51)
[2020-08-07] MEDS: AMLODIPINE 10MG TABLET PO SCH (09:00)
[2020-08-07] MEDS: MAGNESIUM OXIDE 400MG TABLET PO SCH ×2 (09:51→17:41)
[2020-08-07] MEDS: LEVETIRACETAM 500MG TABLET PO SCH ×2 (09:51→20:39)
[2020-08-07] MEDS: OMEPRAZOLE 20MG CAPSULE EXTENDED RELEASE PO SCH (09:51)
[2020-08-07] MEDS: QUETIAPINE FUMARATE 50MG TABLET PEG SCH ×2 (09:52→20:41)
[2020-08-07] MEDS: LACTULOSE 20G/30ML UDC PO SCH ×3 (09:52→17:42)
[2020-08-07 11:42] LABS: BG BASE EXCESS -4.7 mmol/L (-2.0-2.0); BG CARBOXYHEMOGLOBIN 0.5 % (0.5-1.5); BG DEOXYHEMOGLOBIN 3.1 % (0.0-5.0); BG FRACTION INSPIRED OXYGEN 40; BG HCO3 ACT 22.9 mmol/L (22.0-26.0); BG METHEMOGLOBIN 0.4 % (0.0-1.5); BG OXYGEN SATURATION 96.9 % (92.0-98.5); BG PCO2 55.7 mmHg (35.0-45.0); BG PH 7.232 (7.350-7.450); BG PO2 97.3 mmHg (75.0-100.0); BG SAMPLE SITE RIGHT RADIAL; BG VENT MODE VENT - SIMV
[2020-08-07] MEDS: HALOPERIDOL LACTATE 5MG/ML VIAL IM PRN (12:50)
[2020-08-07] MEDS: DEXTROSE 5% WATER 1,000 ML IV SCH (17:41)
[2020-08-08] VITALS (48 sets, daily range): BP systolic 92–156; BP diastolic 46–84
[2020-08-08] MEDS: MIDAZOLAM HCL 100 MG in DEXT 5% WATER 100 ML IV PRN (04:00)
[2020-08-08] MEDS: FENTANYL CITRATE/PF 2,500 MCG in SODIUM CHLORIDE 0.9% 200 ML IV PRN ×2 (04:47→15:41)
[2020-08-08 05:07] LABS: CHLORIDE 111 mEq/L (98-107)
[2020-08-08 05:10] LABS: BASOPHILS % 0.3 % (0.0-2.0); EOSINOPHILS % 2.9 % (0.0-5.0); HEMATOCRIT. 26.1 % (42.0-52.0); HEMOGLOBIN. 8.2 g/dL (14.0-18.0); MEAN CORPUSCULAR HEMOGLOBIN 29.7 pg (28.0-32.0); MEAN CORPUSCULAR VOLUME 94.5 fL (80.0-94.0); MEAN PLATELET VOLUME 10.3 fl (7.4-10.4); MONOCYTES % 9.4 % (2.0-8.0); NEUTROPHILS % 62.4 % (40.0-76.0); PLATELET 212 x1000/uL (130-400); RED BLOOD CELL COUNT 2.76 mill/uL (4.7-6.1); RED CELL DISTRIBUTION WIDTH 19.9 % (11.6-14.6)
[2020-08-08] MEDS ORDERED: MIDAZOLAM 100MG/100ML PMX 100 ML IV PRN (08:15)
[2020-08-08] MEDS ORDERED: MIDAZOLAM HCL 100 MG in DEXT 5% WATER 100 ML IV PRN (08:30)
[2020-08-08] MEDS: IPRATROPIUM BROMIDE (0.02%) 0.5MG/2.5ML NEB HHN SCH ×3 (08:45→20:39)
[2020-08-08] MEDS: MAGNESIUM OXIDE 400MG TABLET PO SCH ×2 (09:32→18:26)
[2020-08-08] MEDS: QUETIAPINE FUMARATE 50MG TABLET PEG SCH ×2 (09:32→20:25)
[2020-08-08] MEDS: AMLODIPINE 10MG TABLET PO SCH (09:32)
[2020-08-08] MEDS: LACTULOSE 20G/30ML UDC PO SCH ×3 (09:33→18:27)
[2020-08-08] MEDS: OMEPRAZOLE 20MG CAPSULE EXTENDED RELEASE PO SCH (09:33)
[2020-08-09] VITALS (48 sets, daily range): BP systolic 87–119; BP diastolic 44–104
[2020-08-09] MEDS: IPRATROPIUM BROMIDE (0.02%) 0.5MG/2.5ML NEB HHN SCH ×4 (00:12→20:33)
[2020-08-09] MEDS: FENTANYL CITRATE/PF 2,500 MCG in SODIUM CHLORIDE 0.9% 200 ML IV PRN ×3 (02:03→21:12)
[2020-08-09] MEDS: MIDAZOLAM HCL 100 MG in SODIUM CHLORIDE 0.9% 80 ML IV PRN (02:05)
[2020-08-09 07:18] LABS: BASOPHILS % 0.6 % (0.0-2.0); EOSINOPHILS % 5.3 % (0.0-5.0); HEMATOCRIT. 24.9 % (42.0-52.0); HEMOGLOBIN. 8.1 g/dL (14.0-18.0); LYMPHOCYTES % 32.9 % (20.0-50.0); MEAN CORPUSCULAR VOLUME 92.4 fL (80.0-94.0); MEAN PLATELET VOLUME 10.4 fl (7.4-10.4); NEUTROPHILS % 50.2 % (40.0-76.0); PLATELET 171 x1000/uL (130-400); RED BLOOD CELL COUNT 2.69 mill/uL (4.7-6.1); RED CELL DISTRIBUTION WIDTH 19.2 % (11.6-14.6)
[2020-08-09 07:34] LABS: CHLORIDE 114 mEq/L (98-107)
[2020-08-09] MEDS: QUETIAPINE FUMARATE 50MG TABLET PEG SCH ×2 (08:47→21:09)
[2020-08-09] MEDS: MAGNESIUM OXIDE 400MG TABLET PO SCH ×2 (08:47→18:49)
[2020-08-09] MEDS: OMEPRAZOLE 20MG CAPSULE EXTENDED RELEASE PO SCH (08:47)
[2020-08-09] MEDS: LACTULOSE 20G/30ML UDC PO SCH ×2 (08:47→18:49)
[2020-08-09] MEDS: HALOPERIDOL LACTATE 5MG/ML VIAL IM PRN (08:51)
[2020-08-09] MEDS: LORAZEPAM 2MG/ML CPJ IV PRN (08:52)
[2020-08-09] MEDS: AMLODIPINE 10MG TABLET PO SCH (08:59)
[2020-08-09] MEDS ORDERED: FUROSEMIDE 40MG/4ML VIAL IVP NR (18:00)
[2020-08-10] VITALS (47 sets, daily range): BP systolic 97–146; BP diastolic 46–97
[2020-08-10] MEDS: IPRATROPIUM BROMIDE (0.02%) 0.5MG/2.5ML NEB HHN SCH ×4 (02:24→22:41)
[2020-08-10] MEDS: LORAZEPAM 2MG/ML CPJ IV PRN ×2 (05:25→19:42)
[2020-08-10 06:17] LABS: BASOPHILS % 0.6 % (0.0-2.0); EOSINOPHILS % 5.1 % (0.0-5.0); HEMATOCRIT. 24.9 % (42.0-52.0); LYMPHOCYTES % 31.9 % (20.0-50.0); MEAN CORPUSCULAR HEMOGLOBIN 29.7 pg (28.0-32.0); MEAN CORPUSCULAR VOLUME 92.1 fL (80.0-94.0); MEAN PLATELET VOLUME 10.3 fl (7.4-10.4); MONOCYTES % 10.7 % (2.0-8.0); NEUTROPHILS % 51.7 % (40.0-76.0); PLATELET 201 x1000/uL (130-400); RED CELL DISTRIBUTION WIDTH 19.2 % (11.6-14.6)
[2020-08-10 07:05] LABS: CHLORIDE 115 mEq/L (98-107)
[2020-08-10] MEDS: MAGNESIUM OXIDE 400MG TABLET PO SCH ×2 (09:52→17:00)
[2020-08-10] MEDS: LACTULOSE 20G/30ML UDC PO SCH ×2 (09:52→18:31)
[2020-08-10] MEDS: QUETIAPINE FUMARATE 50MG TABLET PEG SCH ×2 (09:52→20:06)
[2020-08-10] MEDS: OMEPRAZOLE 20MG CAPSULE EXTENDED RELEASE PO SCH (09:52)
[2020-08-10 10:34] LABS: BG BASE EXCESS 3.2 mmol/L (-2.0-2.0); BG CARBOXYHEMOGLOBIN 0.4 % (0.5-1.5); BG DEOXYHEMOGLOBIN 2.3 % (0.0-5.0); BG FRACTION INSPIRED OXYGEN 40; BG HCO3 ACT 28.8 mmol/L (22.0-26.0); BG METHEMOGLOBIN 0.3 % (0.0-1.5); BG OXYGEN SATURATION 97.7 % (92.0-98.5); BG PCO2 50.1 mmHg (35.0-45.0); BG PH 7.378 (7.350-7.450); BG PO2 103.2 mmHg (75.0-100.0); BG SAMPLE SITE RIGHT RADIAL; BG TOTAL HEMOGLOBIN 8.3 g/dL (12.0-18.0); BG VENT MODE VENT - AC
[2020-08-10] MEDS ORDERED: MIDAZOLAM HCL 100 MG in DEXT 5% WATER 80 ML IV PRN (11:15)
[2020-08-10] MEDS: MIDAZOLAM HCL 100 MG in SODIUM CHLORIDE 0.9% 80 ML IV PRN (11:40)
[2020-08-10] MEDS: FENTANYL CITRATE/PF 2,500 MCG in SODIUM CHLORIDE 0.9% 200 ML IV PRN ×2 (11:44→23:28)
[2020-08-10] MEDS: MIDODRINE HCL 5MG TABLET PO SCH ×2 (13:00→18:31)
[2020-08-10] MEDS: HALOPERIDOL LACTATE 5MG/ML VIAL IM PRN ×2 (14:47→22:51)
[2020-08-11] VITALS (40 sets, daily range): BP systolic 21–186; BP diastolic 13–143
[2020-08-11] MEDS: LORAZEPAM 2MG/ML CPJ IV PRN (00:38)
[2020-08-11] MEDS: IPRATROPIUM BROMIDE (0.02%) 0.5MG/2.5ML NEB HHN SCH ×4 (02:26→21:51)
[2020-08-11 06:58] LABS: CHLORIDE 114 mEq/L (98-107)
[2020-08-11] MEDS: MIDODRINE HCL 5MG TABLET PO SCH (10:07)
[2020-08-11] MEDS: HALOPERIDOL LACTATE 5MG/ML VIAL IM PRN (10:07)
[2020-08-11] MEDS: QUETIAPINE FUMARATE 50MG TABLET PEG SCH ×2 (10:07→22:57)
[2020-08-11] MEDS: OMEPRAZOLE 20MG CAPSULE EXTENDED RELEASE PO SCH (10:07)
[2020-08-11] MEDS: MAGNESIUM OXIDE 400MG TABLET PO SCH ×2 (10:08→17:00)
[2020-08-11 11:55] LABS: BASOPHILS % 0.6 % (0.0-2.0); EOSINOPHILS % 1.6 % (0.0-5.0); HEMATOCRIT. 24.3 % (42.0-52.0); HEMOGLOBIN. 7.8 g/dL (14.0-18.0); MEAN CORPUSCULAR HEMOGLOBIN 29.6 pg (28.0-32.0); MEAN PLATELET VOLUME 10.1 fl (7.4-10.4); MONOCYTES % 9.7 % (2.0-8.0); NEUTROPHILS % 66.1 % (40.0-76.0); PLATELET 224 x1000/uL (130-400); RED BLOOD CELL COUNT 2.65 mill/uL (4.7-6.1)
[2020-08-11] MEDS: FENTANYL CITRATE/PF 2,500 MCG in SODIUM CHLORIDE 0.9% 200 ML IV PRN ×2 (12:43→23:15)
[2020-08-11] MEDS ORDERED: SODIUM POLYSTYRENE SULFONATE 15 G/60 ML BOT PO NR (13:00)
[2020-08-11] MEDS: LACTULOSE 20G/30ML UDC PO SCH (17:00)
[2020-08-12] VITALS (48 sets, daily range): BP systolic 84–177; BP diastolic 40–101
[2020-08-12] MEDS: IPRATROPIUM BROMIDE (0.02%) 0.5MG/2.5ML NEB HHN SCH ×4 (02:30→20:18)
[2020-08-12] MEDS: LORAZEPAM 2MG/ML CPJ IV PRN ×4 (04:10→16:06)
[2020-08-12] MEDS: HALOPERIDOL LACTATE 5MG/ML VIAL IM PRN ×2 (06:26→14:24)
[2020-08-12] MEDS: OMEPRAZOLE 20MG CAPSULE EXTENDED RELEASE PO SCH (07:30)
[2020-08-12 07:49] LABS: BASOPHILS % 0.5 % (0.0-2.0); EOSINOPHILS % 2.9 % (0.0-5.0); HEMATOCRIT. 27.1 % (42.0-52.0); HEMOGLOBIN. 8.8 g/dL (14.0-18.0); LYMPHOCYTES % 31.1 % (20.0-50.0); MEAN CORPUSCULAR HEMOGLOBIN 29.7 pg (28.0-32.0); MEAN CORPUSCULAR VOLUME 91.9 fL (80.0-94.0); MEAN PLATELET VOLUME 9.9 fl (7.4-10.4); MONOCYTES % 11.1 % (2.0-8.0); NEUTROPHILS % 54.4 % (40.0-76.0); PLATELET 236 x1000/uL (130-400); RED BLOOD CELL COUNT 2.95 mill/uL (4.7-6.1); RED CELL DISTRIBUTION WIDTH 18.7 % (11.6-14.6)
[2020-08-12 07:53] LABS: CHLORIDE 113 mEq/L (98-107)
[2020-08-12 07:57] LABS: PHOSPHORUS 4.8 mg/dL (2.5-4.9)
[2020-08-12] MEDS: LACTULOSE 20G/30ML UDC PO SCH ×2 (08:46→17:40)
[2020-08-12] MEDS: QUETIAPINE FUMARATE 50MG TABLET PEG SCH ×2 (08:46→22:39)
[2020-08-12] MEDS: MAGNESIUM OXIDE 400MG TABLET PO SCH ×2 (08:46→17:40)
[2020-08-12] MEDS ORDERED: MAGNESIUM 2 G PREMIX 50 ML IV NR (11:00)
[2020-08-12] MEDS: FENTANYL CITRATE/PF 2,500 MCG in SODIUM CHLORIDE 0.9% 200 ML IV PRN (11:37)
[2020-08-13] VITALS (48 sets, daily range): BP systolic 48–184; BP diastolic 26–110
[2020-08-13] MEDS: LORAZEPAM 2MG/ML CPJ IV PRN ×2 (01:51→11:12)
[2020-08-13] MEDS: IPRATROPIUM BROMIDE (0.02%) 0.5MG/2.5ML NEB HHN SCH ×4 (02:31→20:55)
[2020-08-13 06:04] LABS: CHLORIDE 113 mEq/L (98-107)
[2020-08-13 06:09] LABS: PHOSPHORUS 4.6 mg/dL (2.5-4.9)
[2020-08-13 06:36] LABS: BASOPHILS % 0.8 % (0.0-2.0); EOSINOPHILS % 3.5 % (0.0-5.0); HEMATOCRIT. 23.8 % (42.0-52.0); HEMOGLOBIN. 7.9 g/dL (14.0-18.0); LYMPHOCYTES % 38.3 % (20.0-50.0); MEAN CORPUSCULAR HEMOGLOBIN 30.2 pg (28.0-32.0); MEAN CORPUSCULAR VOLUME 91.7 fL (80.0-94.0); MEAN PLATELET VOLUME 10.4 fl (7.4-10.4); MONOCYTES % 11.1 % (2.0-8.0); NEUTROPHILS % 46.3 % (40.0-76.0); PLATELET 221 x1000/uL (130-400); RED CELL DISTRIBUTION WIDTH 18.9 % (11.6-14.6)
[2020-08-13] MEDS: LACTULOSE 20G/30ML UDC PO SCH ×2 (09:02→18:35)
[2020-08-13] MEDS: MAGNESIUM OXIDE 400MG TABLET PO SCH ×2 (09:02→18:35)
[2020-08-13] MEDS: QUETIAPINE FUMARATE 50MG TABLET PEG SCH ×2 (09:02→21:09)
[2020-08-13] MEDS: MORPHINE SULFATE 4 MG/ML CPJ (NOT FOR IM USE) IV PRN (21:10)
[2020-08-14] VITALS (47 sets, daily range): BP systolic 91–210; BP diastolic 60–108
[2020-08-14] MEDS: IPRATROPIUM BROMIDE (0.02%) 0.5MG/2.5ML NEB HHN SCH ×4 (02:51→20:45)
[2020-08-14 06:23] LABS: BASOPHILS % 0.8 % (0.0-2.0); EOSINOPHILS % 1.9 % (0.0-5.0); HEMATOCRIT. 26.1 % (42.0-52.0); HEMOGLOBIN. 8.5 g/dL (14.0-18.0); LYMPHOCYTES % 24.2 % (20.0-50.0); MEAN CORPUSCULAR HEMOGLOBIN 29.7 pg (28.0-32.0); MEAN CORPUSCULAR VOLUME 91.7 fL (80.0-94.0); MEAN PLATELET VOLUME 10.4 fl (7.4-10.4); MONOCYTES % 9.7 % (2.0-8.0); NEUTROPHILS % 63.4 % (40.0-76.0); PLATELET 240 x1000/uL (130-400); RED BLOOD CELL COUNT 2.85 mill/uL (4.7-6.1); RED CELL DISTRIBUTION WIDTH 18.6 % (11.6-14.6)
[2020-08-14 06:44] LABS: CHLORIDE 113 mEq/L (98-107)
[2020-08-14] MEDS: LACTULOSE 20G/30ML UDC PO SCH ×2 (08:47→16:49)
[2020-08-14] MEDS: MAGNESIUM OXIDE 400MG TABLET PO SCH ×2 (08:47→16:49)
[2020-08-14 09:57] LABS: PHOSPHORUS 4.3 mg/dL (2.5-4.9)
[2020-08-14] MEDS: LORAZEPAM 2MG/ML CPJ IV PRN ×2 (12:19→16:54)
[2020-08-14] MEDS: MORPHINE SULFATE 4 MG/ML CPJ (NOT FOR IM USE) IV PRN ×3 (14:47→22:41)
[2020-08-14] MEDS: QUETIAPINE FUMARATE 50MG TABLET PEG SCH ×2 (16:49→21:21)
[2020-08-14] MEDS: HALOPERIDOL LACTATE 5MG/ML VIAL IM PRN (18:25)
[2020-08-15] VITALS (18 sets, daily range): BP systolic 101–205; BP diastolic 38–133
[2020-08-15] MEDS: LORAZEPAM 2MG/ML CPJ IV PRN ×2 (00:04→09:41)
[2020-08-15] MEDS: HALOPERIDOL LACTATE 5MG/ML VIAL IM PRN ×2 (03:27→10:48)
[2020-08-15] MEDS: IPRATROPIUM BROMIDE (0.02%) 0.5MG/2.5ML NEB HHN SCH ×2 (03:39→07:45)
[2020-08-15 05:54] LABS: EOSINOPHILS % 1.5 % (0.0-5.0); HEMOGLOBIN. 8.5 g/dL (14.0-18.0); LYMPHOCYTES % 24.1 % (20.0-50.0); MEAN CORPUSCULAR HEMOGLOBIN 28.9 pg (28.0-32.0); MEAN CORPUSCULAR VOLUME 92.1 fL (80.0-94.0); MEAN PLATELET VOLUME 10.5 fl (7.4-10.4); MONOCYTES % 8.4 % (2.0-8.0); PLATELET 259 x1000/uL (130-400); RED BLOOD CELL COUNT 2.93 mill/uL (4.7-6.1); RED CELL DISTRIBUTION WIDTH 18.6 % (11.6-14.6)
[2020-08-15 06:22] LABS: CHLORIDE 112 mEq/L (98-107)
[2020-08-15] MEDS: MAGNESIUM OXIDE 400MG TABLET PO SCH (08:25)
[2020-08-15] MEDS: LACTULOSE 20G/30ML UDC PO SCH (08:25)
[2020-08-15] MEDS: QUETIAPINE FUMARATE 50MG TABLET PEG SCH (08:25)
[2020-08-15 09:51] LABS: BG BASE EXCESS 3.5 mmol/L (-2.0-2.0); BG CARBOXYHEMOGLOBIN 0.3 % (0.5-1.5); BG DEOXYHEMOGLOBIN 1.7 % (0.0-5.0); BG FRACTION INSPIRED OXYGEN 40; BG HCO3 ACT 28.3 mmol/L (22.0-26.0); BG METHEMOGLOBIN 0.1 % (0.0-1.5); BG OXYGEN SATURATION 98.3 % (92.0-98.5); BG OXYHEMOGLOBIN 97.9 % (94.0-97.0); BG PCO2 43.9 mmHg (35.0-45.0); BG PH 7.427 (7.350-7.450); BG PO2 121.1 mmHg (75.0-100.0); BG SAMPLE SITE RIGHT RADIAL; BG TOTAL HEMOGLOBIN 9.7 g/dL (12.0-18.0); BG TOTAL RESPIRATORY RATE 29 b/min; BG VENT MODE VENT - AC
[2020-08-15] MEDS: MORPHINE SULFATE 4 MG/ML CPJ (NOT FOR IM USE) IV PRN (10:48)
== END 2020-08-15 11:00 | DRG 4 ==
LOC: ER 23:46 → 6WST 05-13 02:59 → EDBEDREQ 05-13 03:10 → ENRESERV 05-13 03:34 → 7EST 05-14 10:59 → 5WST 05-15 23:01 → MICUNO 05-17 10:18 → 3WST 05-31 12:59 → 5EST 06-02 14:01 → CVICU 06-13 04:15 → 5EST 06-15 19:42
PROVIDERS: ADMIT Internal Medicine; ATTEND Internal Medicine
PROC: 0BH17EZ Insertion of Endotracheal Airway into Trachea, Via Natural or Artificial Opening (ICD-10-PCS; 2020-05-17)
PROC: 5A1955Z Respiratory Ventilation, Greater than 96 Consecutive Hours (ICD-10-PCS; 2020-05-17)
PROC: 05HY33Z Insertion of Infusion Device into Upper Vein, Percutaneous Approach (ICD-10-PCS; 2020-05-17)
PROC: B54MZZA Ultrasonography of Right Upper Extremity Veins, Guidance (ICD-10-PCS; 2020-05-17)
PROC: 009U3ZX Drainage of Spinal Canal, Percutaneous Approach, Diagnostic (ICD-10-PCS; 2020-05-17)
PROC: 4A00X4Z Measurement of Central Nervous Electrical Activity, External Approach (ICD-10-PCS; 2020-05-18)
PROC: 0DB68ZX Excision of Stomach, Via Natural or Artificial Opening Endoscopic, Diagnostic (ICD-10-PCS; 2020-06-02)
PROC: 30233K1 Transfusion of Nonautologous Frozen Plasma into Peripheral Vein, Percutaneous Approach (ICD-10-PCS; 2020-06-02)
PROC: 30233N1 Transfusion of Nonautologous Red Blood Cells into Peripheral Vein, Percutaneous Approach (ICD-10-PCS; 2020-06-02)
PROC: 0BH17EZ Insertion of Endotracheal Airway into Trachea, Via Natural or Artificial Opening (ICD-10-PCS; 2020-06-02)
PROC: 5A1955Z Respiratory Ventilation, Greater than 96 Consecutive Hours (ICD-10-PCS; 2020-06-02)
PROC: 5A1955Z Respiratory Ventilation, Greater than 96 Consecutive Hours (ICD-10-PCS; principal; 2020-06-16)
PROC: 0B113F4 Bypass Trachea to Cutaneous with Tracheostomy Device, Percutaneous Approach (ICD-10-PCS; 2020-06-16)
PROC: 0GBJ0ZZ Excision of Thyroid Gland Isthmus, Open Approach (ICD-10-PCS; 2020-06-16)
PROC: 0JB50ZZ Excision of Left Neck Subcutaneous Tissue and Fascia, Open Approach (ICD-10-PCS; 2020-06-17)
PROC: 0JB40ZZ Excision of Right Neck Subcutaneous Tissue and Fascia, Open Approach (ICD-10-PCS; 2020-06-17)
PROC: 0DJ08ZZ Inspection of Upper Intestinal Tract, Via Natural or Artificial Opening Endoscopic (ICD-10-PCS; 2020-06-18)
PROC: 0DH60UZ Insertion of Feeding Device into Stomach, Open Approach (ICD-10-PCS; 2020-06-20)
PROC: B54MZZA Ultrasonography of Right Upper Extremity Veins, Guidance (ICD-10-PCS; 2020-06-26)
PROC: 05HY33Z Insertion of Infusion Device into Upper Vein, Percutaneous Approach (ICD-10-PCS; 2020-06-26)
PROC: 5A12012 Performance of Cardiac Output, Single, Manual (ICD-10-PCS; 2020-06-30)
PROC: 5A12012 Performance of Cardiac Output, Single, Manual (ICD-10-PCS; 2020-07-02)
PROC: 4A00X4Z Measurement of Central Nervous Electrical Activity, External Approach (ICD-10-PCS; 2020-07-03)
PROC: 5A12012 Performance of Cardiac Output, Single, Manual (ICD-10-PCS; 2020-07-15)
PROC: 5A12012 Performance of Cardiac Output, Single, Manual (ICD-10-PCS; 2020-08-03)
DX: A41.01 Sepsis due to Methicillin susceptible Staphylococcus aureus (principal); I63.9 Cerebral infarction, unspecified; G92 Toxic encephalopathy; E44.0 Moderate protein-calorie malnutrition; D64.9 Anemia, unspecified; I89.0 Lymphedema, not elsewhere classified; G40.909 Epilepsy, unspecified, not intractable, without status epilepticus; Y90.6 Blood alcohol level of 120-199 mg/100 ml; F17.210 Nicotine dependence, cigarettes, uncomplicated; Z20.828 Contact with and (suspected) exposure to other viral communicable diseases; I50.33 Acute on chronic diastolic (congestive) heart failure; I27.20 Pulmonary hypertension, unspecified; R65.20 Severe sepsis without septic shock; E87.1 Hypo-osmolality and hyponatremia; E87.6 Hypokalemia; D50.0 Iron deficiency anemia secondary to blood loss (chronic); D68.9 Coagulation defect, unspecified; D69.6 Thrombocytopenia, unspecified; E03.9 Hypothyroidism, unspecified; E04.1 Nontoxic single thyroid nodule; E66.9 Obesity, unspecified; E78.1 Pure hyperglyceridemia; E78.5 Hyperlipidemia, unspecified; E83.42 Hypomagnesemia; E86.1 Hypovolemia; E87.0 Hyperosmolality and hypernatremia; E87.5 Hyperkalemia; G31.9 Degenerative disease of nervous system, unspecified; G93.1 Anoxic brain damage, not elsewhere classified; I07.1 Rheumatic tricuspid insufficiency; I11.0 Hypertensive heart disease with heart failure; I38 Endocarditis, valve unspecified; I46.9 Cardiac arrest, cause unspecified; I47.1 Supraventricular tachycardia; I47.2 Ventricular tachycardia; I49.3 Ventricular premature depolarization; I85.10 Secondary esophageal varices without bleeding; I87.2 Venous insufficiency (chronic) (peripheral); J18.9 Pneumonia, unspecified organism; K29.70 Gastritis, unspecified, without bleeding; K70.30 Alcoholic cirrhosis of liver without ascites; Z20.822 Contact with and (suspected) exposure to COVID-19; T50.2X5A Adverse effect of carbonic-anhydrase inhibitors, benzothiadiazides and other diuretics, initial encounter; E11.51 Type 2 diabetes mellitus with diabetic peripheral angiopathy without gangrene; F10.229 Alcohol dependence with intoxication, unspecified; N17.0 Acute kidney failure with tubular necrosis; K43.6 Other and unspecified ventral hernia with obstruction, without gangrene; N62 Hypertrophy of breast; R04.0 Epistaxis; S90.822A Blister (nonthermal), left foot, initial encounter; K92.1 Melena; J96.01 Acute respiratory failure with hypoxia; X58.XXXA Exposure to other specified factors, initial encounter; Y93.89 Activity, other specified; Y92.89 Other specified places as the place of occurrence of the external cause; Y99.8 Other external cause status; Z59.0 Homelessness; Z78.1 Physical restraint status; Z86.73 Personal history of transient ischemic attack (TIA), and cerebral infarction without residual deficits; Z91.14 Patient's other noncompliance with medication regimen; Z99.11 Dependence on respirator [ventilator] status; S10.0XXA Contusion of throat, initial encounter; Y92.238 Other place in hospital as the place of occurrence of the external cause; Z68.36 Body mass index [BMI] 36.0-36.9, adult
CPT/HCPCS: 36415; 36600; 70491; 70551; 71045; 71260; 73700; 74176; 74177; 76604; 76700; 76770; 76937; 80048; 80053; 80061; 80076; 80202; 80305; 80320; 81003; 82140; 82270; 82375; 82550; 82607; 82728; 82746; 82805; 82945; 82962; 83036; 83540; 83550; 83735; 83880; 84100; 84132; 84134; 84145; 84157; 84439; 84443; 84478; 84481; 85014; 85018; 85025; 85027; 85049; 85384; 86592; 86663; 86705; 86709; 86788; 86789; 86803; 86850; 86900; 86920; 86927; 87070; 87077; 87186; 87255; 87340; 87389; 87426; 87635; 88305; 88313; 92610; 93005; 93306; 93880; 93923; 93970; 94003; 94640; 94667; 97110; 97140; 97162; 97164; 97165; 97168; 97530; 97535; 99285; A6261; C1725; C1892; C9113; J0690; J0692; J0696; J1170; J1200; J1630; J1650; J1815; J1940; J1953; J2060; J2250; J2270; J2354; J2370; J2704; J2765; J3010; J3370; J3411; J3430; J3475; J3480; J3490; J7030; J7040; J7042; J7050; J7060; J7070; J7608; P9016; P9017; Q9967; A4315; G0480